=== PATIENT | female | born 1940 | race Caucasian/White ===

== ENCOUNTER 2019-03-21 11:03 | Outpatient (CLI) | payer MEDICARE, OTHER, SELFPAY ==
--- NOTE | 2019-03-21 | XR_ITS ---
WS: [id number] CHEST 2 VIEWS HISTORY: WEIGHT LOSS COMPARISON: 10/02/2017 Lungs: Hyperinflated lungs with changes of emphysema. No pneumonia. No mass or nodule is identified. Cardiac size: Normal. Mediastinum/Aorta: Mild atherosclerosis aorta. Bones: Normal. XR/XR chest 2V* [id number] IMPRESSION: Chronic emphysema. No acute cardiopulmonary disease.
== END 2019-03-21 11:04 | disposition home or self-care (01) ==
LOC: RADOUTREAD 03-22 07:13
PROVIDERS: Family Provider Family Medicine; Visit Provider Physician Assistant
DX: J43.9 Emphysema, unspecified (principal); R63.4 Abnormal weight loss
CPT/HCPCS: 71046

== ENCOUNTER 2019-05-27 21:52 | Emergency (ER) | payer MEDICARE, OTHER, SELFPAY ==
[2019-05-27] VITALS (20 sets, daily range): BP systolic 103–124; BP diastolic 66–75; PULSE 79–98; RESP 18; TEMP 36.8; O2SAT 90–95; BMI 19.5
--- NOTE | 2019-05-27 22:08 | ED_ITS ---
Entered by Patsy Jenkins, acting as scribe for Isauro Hernandez DO May 27, 2019 21:52 HPI - SOB/Dyspnea General: Chief Complaint: Shortness of Breath/Dyspnea Stated Complaint: SOB Time Seen by Provider: 05/27/19 22:07 Source: patient Mode of arrival: ambulatory History of Present Illness: HPI Narrative: 78 y/o female presents to the ED with complaint of SOB that started today. She has had a mild productive cough since last night, but denies any fever. She uses an Advair inhaler daily and says she is needing a refill. She became concerned when she realized she was out of the medication and continued to feel tightness in her chest. She does not have a rescue inhaler. MD elicited complaint: shortness of breath and cough Onset (ago): day(s) Timing: intermittent Severity: mild Exacerbating factors: coughing Relieving factors: medication Associated symptoms: Reports cough; Deny abdominal pain, chest pain, dizziness, fever(s), nausea, palpitations or vomiting Review of Systems Const: Reports: chills; Denies: fever Eyes: Denies: change in vision or blurry vision ENMT: Reports: post nasal drip; Denies: painful swallowing or facial/sinus pain Card: Reports: other (chest tightness); Denies: chest pain, palpitations, irregular heart rhythm, edema or swelling of feet/ankles Resp: Reports: shortness of breath, productive cough and wheezing; Denies: non-productive cough GI: Denies: abdominal pain, nausea or vomiting : Denies: painful urination, urinary frequency, urinary urgency or blood in urine Musc: Denies: neck pain, back pain, redness or joint warmth Skin/Breast: Denies: rash, itching or redness Neuro: Denies: headache, dizziness, vertigo or confusion Psych: Denies: anxiety PFSH ED PFSH: Social History Smoking and tobacco status: never smoked Physical Exam Const: COMMON NORMALS: alert GENERAL APPEARANCE: well kempt and well developed ORIENTATION/CONSCIOUSNESS: Yes awake, Yes oriented to person, Yes oriented to place and Yes oriented to time HENMT: COMMON NORMALS: normocephalic, external ears normal, external nose normal and moist oral mucous membranes HEAD & SCALP: normocephalic; no scalp tenderness FACE & SINUS: normal facial exam NOSE: external nose normal and no nasal discharge EXTERNAL EAR: Yes external ears normal MOUTH: tongue normal THROAT: posterior oropharynx normal; no peritonsillar mass Eye: COMMON NORMALS: PERRL, EOMs intact bilaterally and conjunctivae normal EYELID: eyelids normal CONJUNCTIVA: Yes conjunctivae normal PUPIL: Yes PERRL Neck/C-Spine: COMMON NORMALS: full ROM GENERAL: No tracheal deviation Chest: COMMONS NORMALS: inspection of chest normal CHEST: Yes symmetrical chest wall rise and No tenderness Resp: COMMON NORMALS: clear to auscultation bilaterally EFFORT & INSPECTION: No tachypneic, No respiratory distress, No retractions, No uses accessory muscles and No tracheal deviation AUSCULTATION: clear to auscultation bilaterally, no rhonchi, wheezes (slight) and lung sounds not diminished Cardio: COMMON NORMALS: regular rhythm RHYTHM: regular rhythm HEART SOUNDS: no murmurs PERIPHERAL PULSES: radial pulses present GI: INSPECTION: No abdominal distension AUSCULTATION: No hyperactive bowel sounds and No hypoactive bowel sounds PALPATION: No tender, No guarding and N o rigid PERCUSSION: no dullness to percussion and no tympanic to percussion Neuro: SENSORIUM/ORIENTATION: Yes alert, Yes oriented to person, Yes oriented to place and Yes oriented to time Psych: COMMON NORMALS: mental status grossly normal and speech normal APPEARANCE: Yes well kempt ATTITUDE: Yes calm SPEECH: Yes normal speech Skin: COMMON NORMALS: no rashes or lesions noted GENERAL SKIN EXAM: no rashes or lesions noted Course Vital Signs: Vital signs: Vital Signs Temperature 98.2 F 05/27/19 22:06 Pulse Rate 90 05/27/19 22:50 Respiratory Rate 18 05/27/19 22:45 Blood Pressure 102/64 05/28/19 00:15 Pulse Oximetry 93 05/28/19 00:15 MDM - SOB/Dyspnea MDM Narrative: Medical decision making narrative: 78-year-old female, out of her Advair at home. She presents with shortness of breath. She is improved after DuoNeb treatment and Solu-Medrol here. She is walked in the kelly, and maintained a sat above 91% on room air. She has no fever, no leukocytosis, no infiltrate on x-ray. She feels better and would like to go home. She will go home on steroids, and albuterol inhaler, and refill of her Advair. Lab Data: Labs: Lab Results 05/27/19 05/27/19 05/27/19 Range/Units 22:30 22:30 22:45 WBC 4.5 (4.0-10.0) 10^3/ uL RBC 3.87 L (4.1-5.3) 10^6/u L Hgb 12.9 (11.5-15.3) g/dL Hct 40.2 (37.0-47.0) % MCV 103.9 H (81-99) fL MCH 33.3 (28.0-34.0) pg MCHC 32.1 (30.0-36.0) g/dL RDW 12.1 (12.1-15.1) % Plt Count 194 (130-400) 10^3/c mm MPV 10.3 (7.4-10.4) fL Neut % (Auto) 54.3 % Lymph % (Auto) 23.1 % Ray % (Auto) 9.3 % Eos % (Auto) 12.4 % Baso % (Auto) 0.9 % Neut # (Auto) 2.4 (1.8-7.7) 10^3/u L Lymph # (Auto) 1.0 (0.8-4.8) 10^3/u L Ray # (Auto) 0.4 (0.2-0.9) 10^3/u L Eos # (Auto) 0.6 (0.0-0.8) 10^3/u L Baso # (Auto) 0.0 (0.0-0.1) 10^3/u L Nucleated RBC % (a uto) 0 % Nucleated RBCs # 0.0 /100WBC Sodium 139 (136-145) mmol/L Potassium 3.5 (3.5-5.1) mmol/L Chloride 103 (98-107) mmol/L Carbon Dioxide 24 (22-29) mmol/L Anion Gap 15.5 (5-19) BUN 12 (8-23) mg/dL Creatinine 0.7 (0.5-0.9) mg/dL Glucose 115 (65-115) mg/dL Calculated Osmolal ity 285 (285-295) mOsm/k g Calcium 9.6 (8.5-10.5) mg/dL Total Bilirubin 0.5 (0.15-1.2) mg/dL AST 15 (0-32) U/L ALT 12 (0-33) U/L Alkaline Phosphata se 80 (35-105) IU/L NT-Pro-B Natriuret Pep 44 (0-450) pg/mL Total Protein 5.8 L (6.6-8.7) g/dL Albumin 3.6 (3.5-5.2) g/dL Globulin 2.2 (1.3-4.6) g/dL Influenza Type A A g Negative (Negative) POC Influenza B Ag Negative (Negative) Discharge Plan Discharge Patient Disposition: Home, Self-Care Clinical Impression: Acute exacerbation of chronic obstructive airways disease Condition: Stable Prescriptions: New doxycycline hyclate 100 mg capsule 100 mg PO BID 10 Days Qty: 20 RF: 0 prednisone 20 mg tablet 40 mg PO DAILY Qty: 10 RF: 0 Advair Diskus 250-50 mcg/dose blister with device 1 inh INHALATION BID Qty: 60 RF: 0 Discharge Orders: Discharge Order (Routine); Ordered 05/27/19 Ordered By: Isauro Hernandez Referrals: Kathleen Trejo MD [Family Provider] - 4-7 days Discharge Diet: Usual diet Discharge Activity: Increase activity as tolerated Patient Instructions: Chronic Bronchitis (ED) Activity Restrictions/Additional Instructions: Return for any worsening shortness of breath despite treatment, fever greater than 100, worsening sputum production, chest discomfort, other concerning symptoms. Discharge Date/Time: 05/28/19 00:29 Coding Level of Care Code ED Rn Clinical Documentation for Chg Fwd Exam Comprehensive The documentation recorded by the Gregory posey Ashley, accurately reflects the service I personally performed and the decisions made by David smith Jeremy John, DO May 27, 2019 21:52
--- NOTE | 2019-05-27 22:21 | XRR_ITS ---
PROCEDURE INFORMATION: Exam: XR Chest, 1 View Exam date and time: 05/27/2019 10:52 PM Age: 78 years old Clinical indication: Shortness of breath; Additional info: SOB TECHNIQUE: Imaging protocol: XR of the chest Views: 1 view. COMPARISON: CR XR chest 2V* [id number] 03/21/2019 11:03 AM FINDINGS: Lungs: Stable mild hyperinflation of the lungs. No focal consolidation. No pulmonary edema. Pleural space: No pleural effusion. No pneumothorax. Heart/Mediastinum: Stable mild enlargement of the cardiac silhouette. Mediastinal contours are unremarkable. Bilateral calcified hilar lymph nodes are stable. Vasculature: Stable vascular calcifications in the aorta. Stable tortuosity of the aorta. Bones/joints: Bones are diffusely osteopenic. Degenerative changes in the spine and shoulders. Mild levoscoliosis in the visualized upper lumbar spine. Osseous findings are stable. XR/XR chest 1V portable [id number] IMPRESSION: 1. No acute cardiopulmonary process. 2. Incidental/nonacute findings are listed in the report.
[2019-05-27 22:43] LABS: Basophils % 0.9 %; Eosinophils # 0.6 10^3/uL (0.0-0.8); Eosinophils % 12.4 %; Hematocrit 40.2 % (37.0-47.0); Hemoglobin 12.9 g/dL (11.5-15.3); Lymphocytes % 23.1 %; Mean Corpuscular HGB Conc 32.1 g/dL (30.0-36.0); Mean Corpuscular Hemoglobin 33.3 pg (28.0-34.0); Mean Corpuscular Volume 103.9 fL (81-99); Mean Platelet Volume 10.3 fL (7.4-10.4); Monocytes # 0.4 10^3/uL (0.2-0.9); Monocytes % 9.3 %; Neutrophils # 2.4 10^3/uL (1.8-7.7); Neutrophils % 54.3 %; Nucleated Red Blood Cells % 0 %; Platelet Count 194 10^3/cmm (130-400); Red Blood Count 3.87 10^6/uL (4.1-5.3); Red Cell Distribution Width 12.1 % (12.1-15.1); White Blood Count 4.5 10^3/uL (4.0-10.0)
[2019-05-27] MEDS: ipratropium-albuterol 3 mL Neb INHALATION (22:44)
--- NOTE | 2019-05-27 22:47 | ECG_ITS ---
Measurements Intervals [place] Rate: 80 P: 31 ND: 157 QRS: -5 QRSD: 84 T: 59 QT: 376 QTc: 436 SINUS RHYTHM Compared to ECG 10/02/2017 23:59:40 T-wave abnormality no longer present Electronically Signed On 05-28-2019 9:23:04 CDT by Juan Arguello M.D. [email or web address]
[2019-05-27 23:12] LABS: Alanine Aminotransferase 12 U/L (0-33); Albumin Level 3.6 g/dL (3.5-5.2); Alkaline Phosphatase 80 IU/L (35-105); Anion Gap 15.5 (5-19); Aspartate Amino Transferase 15 U/L (0-32); Blood Urea Nitrogen 12 mg/dL (8-23); Calcium 9.6 mg/dL (8.5-10.5); Carbon Dioxide 24 mmol/L (22-29); Chloride 103 mmol/L (98-107); Globulin 2.2 g/dL (1.3-4.6); Glucose 115 mg/dL (65-115); NT Pro B Type Natriuretic Pept 44 pg/mL (0-450); Osmolality Calculated 285 mOsm/kg (285-295); Potassium 3.5 mmol/L (3.5-5.1); Sodium 139 mmol/L (136-145); Total Bilirubin 0.5 mg/dL (0.15-1.2); Total Protein 5.8 g/dL (6.6-8.7)
[2019-05-28] VITALS: BP 103/66; O2SAT 90
[2019-05-28 00:05] VITALS: BP 102/64
[2019-05-28 00:10] VITALS: BP 102/64; O2SAT 93
[2019-05-28 00:11] LABS: Influenza A by IFA Negative (Negative); Influenza B by IFA Negative (Negative)
[2019-05-28 00:15] VITALS: BP 102/64; O2SAT 93
== END 2019-05-28 00:29 | disposition home or self-care (01) ==
PROVIDERS: Emergency Provider Emergency Medicine; Family Provider Family Medicine
DX: J44.1 Chronic obstructive pulmonary disease with (acute) exacerbation (principal)
CPT/HCPCS: 12345; 71045; 80053; 83880; 85025; 87804; 93005; 94640; 96374; 99283; 99284; J2930

== ENCOUNTER 2019-06-12 04:05 | Observation (INO) | payer MEDICARE, OTHER, SELFPAY ==
[2019-06-12] VITALS (17 sets, daily range): BP systolic 114–165; BP diastolic 73–111; PULSE 73–96; RESP 16–23; TEMP 36.4–37.9; O2SAT 88–95
--- NOTE | 2019-06-12 04:13 | XR_ITS ---
WS: [id number] CHEST XRAY TECHNIQUE: Portable chest. CLINICAL INFORMATION: sob COMPARISON: May 27, 2019 FINDINGS: Heart: Normal cardiac silhouette. Tortuous thoracic aorta. Lungs: Chronic emphysematous changes. No acute pulmonary infiltrates. No focal pneumonia. Bones: Osteopenia. XR/XR chest 1V [id number] IMPRESSION: Chronic emphysematous changes. No acute chest findings.
--- NOTE | 2019-06-12 04:20 | W.ED.SOB ---
HPI - SOB/Dyspnea General: Chief Complaint: Shortness of Breath/Dyspnea Stated Complaint: SOB Time Seen by Provider: 06/12/19 04:13 History of Present Illness: MD elicited complaint: shortness of breath and cough Pertinent past history: COPD Onset (ago): day(s) (2) Context: recent illness Timing: constant Severity: moderate Exacerbating factors: exertion Relieving factors: oxygen Known history of: COPD Associated symptoms: Reports chest congestion; Deny abdominal pain, chest pain, dizziness, fever(s), nausea, palpitations or vomiting Review of Systems Const: Denies: fever or chills Eyes: Denies: change in vision or blurry vision ENMT: Denies: painful swallowing, swelling of lips/tongue, post nasal drip or facial/sinus pain Card: Denies: chest pain, palpitations, irregular heart rhythm or edema Resp: Reports: shortness of breath, productive cough, wheezing and chest congestion GI: Denies: abdominal pain, nausea, vomiting or blood in stool : Denies: painful urination or blood in urine Musc: Denies: neck pain or back pain Skin/Breast: Denies: rash, itching or redness Neuro: Denies: headache, dizziness or vertigo Psych: Denies: anxiety PFSH ED PFSH: Medical History (Updated 06/12/19 @ 06:03 by Aramis Shea MD) Asthma Hilar lymphadenopathy Lower back pain Osteoarthritis Osteoporosis Surgical History (Updated 06/12/19 @ 06:01 by Aramis Shea MD) No pertinent past surgical history Family History Other Hypertension Social History (Updated 06/12/19 @ 06:01 by Aramis Shea MD) Smoking and tobacco status: never smoked Alcohol intake: never Substance/Drug Use: never Lives independently: Yes Household members: other Details: She lives alone Housing: House Physical Exam Const: GENERAL APPEARANCE: well developed ORIENTATION/CONSCIOUSNESS: Yes oriented to person, Yes oriented to place and Yes oriented to time HENMT: COMMON NORMALS: normocephalic, external ears normal and external nose normal HEAD & SCALP: normocephalic; no scalp tenderness FACE & SINUS: normal facial exam NOSE: external nose normal and no nasal discharge EXTERNAL EAR: Yes external ears normal MOUTH: tongue normal Eye: COMMON NORMALS: PERRL, EOMs intact bilaterally and conjunctivae normal EYELID: eyelids normal CONJUNCTIVA: Yes conjunctivae normal PUPIL: Yes PERRL Neck/C-Spine: COMMON NORMALS: full ROM GENERAL: No tracheal deviation Chest: COMMONS NORMALS: inspection of chest normal CHEST: No tenderness Resp: EFFORT & INSPECTION: Yes tachypneic, Yes respiratory distress, No retractions, Yes uses accessory muscles and No tracheal deviation AUSCULTATION: no rhonchi, wheezes and diminished lung sounds Cardio: COMMON NORMALS: regular rate and regular rhythm RATE: regular rate RHYTHM: regular rhythm HEART SOUNDS: no murmurs PERIPHERAL PULSES: radial pulses present GI: INSPECTION: No abdominal distension AUSCULTATION: No hyperactive bowel sounds and No hypoactive bowel sounds PALPATION: No guarding and No rigid PERCUSSION: no dullness to percussion and no tympanic to percussion Neuro: SENSORIUM/ORIENTATION: Yes oriented to person, Yes oriented to place and Yes oriented to time Psych: COMMON NORMALS: mental status grossly normal Skin: COMMON NORMALS: no rashes or lesions noted GENERAL SKIN EXAM: no rashes or lesions noted Course Vital Signs: Vital signs: Vital Signs Temperature 97.8 F 06/12/19 04:09 Pulse Rate 87 06/12/19 05:30 Respiratory Rate 16 06/12/19 05:30 Blood Pressure 126/84 06/12/19 05:30 Pulse Oximetry 92 06/12/19 05:30 MDM - SOB/Dyspnea MDM Narrative: Medical decision making narrative: 79-year-old lady with a history of COPD. I saw HER-2 weeks ago with the same symptoms. She states that she never got her Advair. I do not know if she filled her prednisone and doxycycline. She has no oxygen at home. She presents with a saturation of 80% on room air. She is on 4 L, satting 95% now, and is more comfortable. She has had Solu-Medrol and DuoNeb treatments. Her chest x-ray is free of infiltrate. Her labs are essentially normal. She will be observed for COPD exacerbation with hypoxic respiratory failure. Lab Data: Labs: Lab Results 06/12/19 06/12/19 Range/Units 04:30 04:30 WBC 4.6 (4.0-10.0) 10^3/ uL RBC 4.19 (4.1-5.3) 10^6/u L Hgb 14.2 (11.5-15.3) g/dL Hct 43.4 (37.0-47.0) % MCV 103.6 H (81-99) fL MCH 33.9 (28.0-34.0) pg MCHC 32.7 (30.0-36.0) g/dL RDW 12.2 (12.1-15.1) % Plt Count 183 (130-400) 10^3/c mm MPV 10.2 (7.4-10.4) fL Neut % (Auto) 51.3 % Lymph % (Auto) 26.7 % [place] % (Auto) 8.2 % Eos % (Auto) 13.4 % Baso % (Auto) 0.4 % Neut # (Auto) 2.4 (1.8-7.7) 10^3/u L Lymph # (Auto) 1.2 (0.8-4.8) 10^3/u L [place] # (Auto) 0.4 (0.2-0.9) 10^3/u L Eos # (Auto) 0.6 (0.0-0.8) 10^3/u L Baso # (Auto) 0.0 (0.0-0.1) 10^3/u L Nucleated RBC % (a uto) 0 % Nucleated RBCs # 0.0 /100WBC Sodium 144 (136-145) mmol/L Potassium 3.5 (3.5-5.1) mmol/L Chloride 105 (98-107) mmol/L Carbon Dioxide 28 (22-29) mmol/L Anion Gap 14.5 (5-19) BUN 10 (8-23) mg/dL Creatinine 0.6 (0.5-0.9) mg/dL Glucose 107 (65-115) mg/dL Calculated Osmolal ity 294 (285-295) mOsm/k g Calcium 9.6 (8.5-10.5) mg/dL Total Bilirubin 0.8 (0.15-1.2) mg/dL AST 16 (0-32) U/L ALT 12 (0-33) U/L Alkaline Phosphata se 74 (35-105) IU/L NT-Pro-B Natriuret Pep 55 (0-450) pg/mL Total Protein 6.4 L (6.6-8.7) g/dL Albumin 4.2 (3.5-5.2) g/dL Globulin 2.2 (1.3-4.6) g/dL Discharge Plan Discharge Prescriptions: No Action prednisone 20 mg tablet 40 mg PO DAILY Qty: 10 RF: 0 Advair Diskus 250-50 mcg/dose blister with device 1 inh INHALATION BID Qty: 60 RF: 0 Coding Level of Care Code ED Pipe Recovery Specialist for Chg Fwd Exam Comprehensive
[2019-06-12] MEDS: ipratropium-albuterol 3 mL Neb INHALATION ×2 (04:29→09:08)
[2019-06-12 04:36] LABS: Basophils % 0.4 %; Eosinophils # 0.6 10^3/uL (0.0-0.8); Eosinophils % 13.4 %; Hematocrit 43.4 % (37.0-47.0); Hemoglobin 14.2 g/dL (11.5-15.3); Lymphocytes # 1.2 10^3/uL (0.8-4.8); Lymphocytes % 26.7 %; Mean Corpuscular HGB Conc 32.7 g/dL (30.0-36.0); Mean Corpuscular Hemoglobin 33.9 pg (28.0-34.0); Mean Corpuscular Volume 103.6 fL (81-99); Mean Platelet Volume 10.2 fL (7.4-10.4); Monocytes # 0.4 10^3/uL (0.2-0.9); Monocytes % 8.2 %; Neutrophils # 2.4 10^3/uL (1.8-7.7); Neutrophils % 51.3 %; Nucleated Red Blood Cells % 0 %; Platelet Count 183 10^3/cmm (130-400); Red Blood Count 4.19 10^6/uL (4.1-5.3); Red Cell Distribution Width 12.2 % (12.1-15.1); White Blood Count 4.6 10^3/uL (4.0-10.0)
[2019-06-12 05:01] LABS: Alanine Aminotransferase 12 U/L (0-33); Albumin Level 4.2 g/dL (3.5-5.2); Alkaline Phosphatase 74 IU/L (35-105); Anion Gap 14.5 (5-19); Aspartate Amino Transferase 16 U/L (0-32); Blood Urea Nitrogen 10 mg/dL (8-23); Calcium 9.6 mg/dL (8.5-10.5); Carbon Dioxide 28 mmol/L (22-29); Chloride 105 mmol/L (98-107); Globulin 2.2 g/dL (1.3-4.6); Glucose 107 mg/dL (65-115); NT Pro B Type Natriuretic Pept 55 pg/mL (0-450); Osmolality Calculated 294 mOsm/kg (285-295); Potassium 3.5 mmol/L (3.5-5.1); Sodium 144 mmol/L (136-145); Total Bilirubin 0.8 mg/dL (0.15-1.2); Total Protein 6.4 g/dL (6.6-8.7)
--- NOTE | 2019-06-12 05:23 | P.HP_ITS ---
Providers/Chief Complaint Chief Complaint: SOB History of Present Illness Dilcia Zimmerman is a 79 year old female who carries diagnoses of osteoarthritis, asthma, no other past medical history came in with chief complaint of shortness of breath. Patient is stating that she uses Advair for her asthma and she ran out of Advair yesterday, today she started having shortness of breath without an y wheezing, this shortness of breath was mostly at mild exertion, she has not noticed any fever, nausea or vomiting. Patient is denying myalgia, flulike symptoms, recent travel, sick contacts, diarrhea, dysuria. She does not use oxygen at home, her only medication is Advair. Her last PCP appointment was 3 to 4 months ago. She occasionally takes aspirin for her headaches. She consider herself fairly independent for daily activities, she lives alone, takes care of her dog. Diagnostics in ER revealed hypoxia on room air she is requiring 4 L of nasal cannula to keep saturation 90 to 92% I have requested d-dimer and blood gas At the time of the interview she was resting comfortably in her bed without any active respiratory distress, no wheezing noticed Because of high requirement of oxygen decision was made to admit the patient for further evaluation Review of Systems Const: Denies: fever, chills, body aches or fatigue Eyes: Denies: change in vision ENMT: Denies: throat pain or uvular edema Card: Denies: chest pain, palpitations, irregular heart rhythm or edema Resp: Reports: shortness of breath; Denies: productive cough, non-productive cough, wheezing or change in phlegm color GI: Denies: abdominal pain, nausea or vomiting blood : Denies: flank pain, difficulty urinating or urinary frequency Musc: Reports: joint pain, joint swelling, joint stiffness, limited range of motion and decrease in muscle mass; Denies: extremity pain, extremity swelling or muscle weakness Skin/Breast: Denies: rash or itching Neuro: Denies: headache or weakness in extremities Psych: Denies: anxiety Endo: Denies: excessive urination Zain/Lymph: Denies: easy bruising All/Imm: Denies: hives Medications/Allergies Allergies Allergy/AdvReac Type Severity Reaction Status Date / Time No Known Allergies Allergy Verified 05/27/19 22:08 PFSH Acute PFSH: Medical History (Updated 06/12/19 @ 06:03 by Aramis Shea MD) Asthma Hilar lymphadenopathy Lower back pain Osteoarthritis Osteoporosis Surgical History (Updated 06/12/19 @ 06:01 by Aramis Shea MD) No pertinent past surgical history Family History Other Hypertension Social History (Updated 06/12/19 @ 06:01 by Aramis Shea MD) Smoking and tobacco status: never smoked Alcohol intake: never Substance/Drug Use: never Lives independently: Yes Household members: other Details: She lives alone Housing: House Vitals/I&O/Wt Last Vital Signs Temp 97.8 F 06/12/19 04:09 Pulse 80 06/12/19 04:33 Resp 20 H 06/12/19 04:33 BP 165/111 06/12/19 04:09 Pulse Ox 94 06/12/19 04:33 Weight last 48 hrs Weight 51.256 kg Physical Exam Narrative: EXAM NARRATIVE: Very pleasant elderly female Saturating on 4 L nasal cannula 92% No active respiratory distress Appropriate appearance Decreased muscle mass S1, S2 no signs of heart failure No active respiratory distress, no audible wheezing, bilateral breath sounds diminished with decreased airflow however I have not noticed any wheezing Abdomen soft nontender nondistended bowel sounds present Neurologically nonfocal exam Mild cognitive impairment Skin does not show any sign ischemia gangrene ulcer EOMI, PERRLA Appropriate mood and affect Bilateral lower extremity without any asymmetrical swelling redness Data : 06/12/19 04:30 06/12/19 04:30 A&P Assessment and plan (1) Acute respiratory failure with hypoxia: Status: Acute Code(s): J96.01 - Acute respiratory failure with hypoxia Additional A&P Information Acute hypoxic respiratory failure Chest x-ray is revealing hyperinflated emphysematous lungs with hilar lymphadenopathy No signs of pneumonia, she has been afebrile, no leukocytosis, We will check d-dimer as she is considered low risk for PE Will get blood gas Home O2 evaluation Physical therapy No active wheezing, however she has decreased airflow bilaterally, Albuterol and DuoNeb for as needed purposes I would not use steroids No liver enzymes abnormality, kindly evaluate if she would benefit from alpha-1 antitrypsin level as she is a non-smoker and has hyperinflated emphysematous lungs Osteoporosis We will start calcium and vitamin D supplement She has been taking Advair for a long time without use of Protonix or calcium or vitamin D Full code DVT prophylaxis: Lovenox No need of fluids Attestations Medical Necessity Statement*: Anticipating discharge in less than 48 hours after evaluation of acute hypoxic respiratory failure, currently she is stable on 4 L nasal cannula Time Spent in Patient Care: 30 Coding Level of Care Code Acute Public Health Technician for Gabrielle Turner Diagnoses Acute respiratory failure with hypoxia J96.01
[2019-06-12 07:33] LABS: ABG PCO2 41.2 mmHg (35-45); ABG PH Result 7.39 (7.35-7.45); Arterial Blood Gas Hematocrit 43.7 % (37-47); Base Excess ABG 0.2 mmol/L (-2.0-2.0); Blood Gas Allen Test Pos; Blood Gas Sample Site Radial, left; Blood Gas Sample Type Arterial; HCO3 ABG 25.2 mmol/L (22-26); Oxygen Device NC; PO2 ABG 73.7 mmHg (80.0-100.0)
[2019-06-12] MEDS: enoxaparin 40 mg/0.4 mL Syringe SUBCUT (08:33)
[2019-06-12] MEDS: calcium carb-vit d 500mg-200unit 1 Tablet 1 EACH PO (08:33)
--- NOTE | 2019-06-12 13:15 | CT_ITS ---
WS: [id number] CT CHEST ANGIOGRAPHY WITH REFORMATS HISTORY: Acute hypoxic respite failure TECHNIQUE: Contiguous axial images are obtained through the chest during arterial injection of intrav enous contrast. Images are reconstructed to evaluate the pulmonary arteries. MIP imaging also reviewe d. All CT scans at [facility] use at least one of these dose optimization techniques: aut omated exposure control; mA and/or kV adjustment per patient size (includes targeted exams where dose is matched to clinical indication); or iterative reconstruction. CONTRAST: Omnipaque 350; 95 mL IV. DLP: 297.85 mGy.cm COMPARISON: None available. Very good opacification of the pulmonary arteries. No central or proximal filling defects. Beyond the segmental and subsegmental branches there is adequate opacification. Pulmonary artery size is equal to the aorta. Mild atherosclerosis of aorta. No aneurysm or dissection. Moderate enlargement of cardi ac chambers. No pericardial or pleural effusion. Hyperexpanded lungs with changes of emphysema. No pneumonia or mass. Mild atelectasis at the RIGHT tayo ng base. No adenopathy. Mild bronchiectasis medial LEFT upper lobe. There is diffuse distention of the esophagus with air. There is a large amount of air in the stomach. Small hiatal hernia. Through the upper abdomen there are areas of decreased attenuation scattered throughout the liver whi ch are likely cysts. Cannot be characterized further on this examination. The largest measures 1.5 cm . No adrenal mass. Long curvature scoliosis to the RIGHT. CT/CT angio chest PE protcl [id number] IMPRESSION: 1. No pulmonary embolism. 2. Chronic emphysema. 3. Mild bronchial wall thickening and bronchiectasis medial LEFT upper lobe. 4. Diffuse distention of the esophagus with an air. There is also a large amou nt of air in the stomach. 5. Cardiomegaly. 6. Multiple low-attenuation masses in the liver. These cannot be characterize completely due to their small size. Large masses are cysts. For further evaluat ion follow-up abdomen CT in 3 months with contrast. Liver ultrasound may provid e additional information at this time.
[2019-06-12] MEDS: iohexol 350 mg/mL 100 mL Btl IV (13:51)
[2019-06-13] VITALS (7 sets, daily range): BP systolic 117–143; BP diastolic 78–88; PULSE 73–88; RESP 16–18; TEMP 36.1–36.9; O2SAT 89–95
--- NOTE | 2019-06-13 07:14 | XR_ITS ---
WS: [id number] ABDOMEN 1 VIEW(S) HISTORY: Air in stomach and esophagus. COMPARISON: 06/12/2019 Moderate increased amount of air throughout the GI tract. There is mild constipation. No free air is identified. There is a loop of distal small bowel that is top normal size. Large lobulated calcification measuring 3.1 cm in the mid pelvis. Probably related to a fibroid. LEFT convex curvature lumbar spine. Diffuse osteopenia. XR/XR KUB [id number] IMPRESSION: 1. Increased amount of air throughout the GI track with no obstruction. 2. Single loop of small bowel in the pelvis is top normal size. Mild ileus naina roberto minimal small bowel obstruction or impending obstruction.
[2019-06-13] MEDS: ipratropium-albuterol 3 mL Neb INHALATION (08:37)
--- NOTE | 2019-06-13 10:39 | PM.DCS ---
Discharge Providers Date of Admission: 06/12/19 05:29 Date of Discharge: June 13, 2019 Attending Provider at Admission: Aramis Shea MD Attending Provider at Discharge: Jeffrey Gordon MD Primary Care Provider: DOCTOR NOT ON FILE Diagnoses at Discharge Discharge Diagnosis (1) Acute respiratory failure with hypoxia: Status: Acute (2) Hepatic cyst: Status: Acute (3) Acute bronchitis: Status: Acute Reason for Visit Reason for Visit: Reason For Visit: COPD ACUTE EXACERBATION Hospital Course Discharge Summary: Patient presented with shortness of breath and noted to be hypoxic. She reports mostly dry cough and some nasal congestion but this morning reports feeling much better and wants to go home. Because of new onset of hypoxia she had CT scan of the chest, PE protocol performed yesterday showing no evidence of PE. She had bronchial wall thickening and bronchiectasis and accidentally found to have multiple liver masses which appeared to be cystic. Recommendation was to have CT scan of abdomen in 3 months with contrast. Liver ultrasound could also be considered. KUB was obtained this morning showing increased amount of air throughout the GI tract with no evidence of obstruction. Patient denies any abdominal pain or problems with bowel movement. She had normal formed stool yesterday. She reports passing gas and denies nausea. She ate 100% of her breakfast this morning. She ambulates without difficulty. She did qualify for 2 L of oxygen and this will be prescribed. I am not sure where this air in her GI tract coming from. I have reviewed all ER documentation and did not find any records of using BiPAP in ER. I am assuming that she could possibly receive BiPAP treatment in the ambulance as I do not have any other explanation of air in her GI tract. I will request home health nurse to see patient post discharge to make sure she is doing okay. Patient reports that her daughter lives next door and frequently checks on her. Patient's acute bronchitis felt to be viral in etiology. We will give 3 days of doxycycline for secondary bacterial pneumonia prevention. Given clinical improvement we will go ahead and dismiss patient home. Physical Exam Const: COMMON NORMALS: no apparent distress and oriented x3 Resp: COMMON NORMALS: normal respiratory effort and clear to auscultation bilaterally AUSCULTATION: clear to auscultation bilaterally OTHER: Overall decreased air movement. Cardio: COMMON NORMALS: regular rate, regular rhythm and S2 normal heart sound RATE: regular rate RHYTHM: regular rhythm HEART SOUNDS: S2 normal OTHER: No lower extremity edema GI: COMMON NORMALS: normal to inspection, nondistended, normoactive bowel sounds, soft to palpation and non-tender PALPATION: Yes soft Neuro: COMMON NORMALS: oriented x3 and no focal motor deficits Discharge Data Data Completed and Pending: Completed Studies During Hospitalization Category Date Time Status CT angio chest PE protcl 61025 Rout ine Cat Scan 06/12/19 13:15 Completed XR KUB 56083 Rout ine Exams 06/13/19 07:14 Completed XR chest 1V 71492 Stat Exams 06/12/19 04:13 Completed Vitals: Last Vital Signs Temp 98.5 F 06/13/19 07:54 Pulse 88 06/13/19 08:40 Resp 18 06/13/19 08:38 BP 129/86 06/13/19 07:54 Pulse Ox 94 06/13/19 08:38 Discharge Plan Discharge Patient Disposition: Home Health Service Condition: Stable Prescriptions: New calcium carbonate-vitamin D3 [Oyster Shell Calcium-Vit D3] 500 mg(1,250mg) -200 unit Tablet 1 ea PO DAILY Qty: 30 RF: 0 albuterol sulfate [Ventolin HFA] 90 mcg/actuation HFA aerosol inhaler 1 inh INHALATION Q6H PRN (Reason: shortness of breath or wheezing) Qty: 6.7 RF: 0 doxycycline hyclate 100 mg tablet 100 mg PO BID 3 Days Qty: 6 RF: 0 Continued Advair Diskus 250-50 mcg/dose blister with device 1 inh INHALATION BID Qty: 60 RF: 0 Discontinued prednisone 20 mg tablet 40 mg PO DAILY Qty: 10 RF: 0 Discharge Orders: Discharge Order (Routine); Ordered 06/13/19 Ordered By: Jeffrey Gordon Other Ambulatory Orders: DME: Oxygen (Order) Location: None Selected Ordered By: Jeffrey Gordon Referrals: Kathleen Trejo MD [Family Provider] - 4-7 days Discharge Diet: Regular Discharge Activity: Increase activity as tolerated Activity Restrictions/Additional Instructions: Please call your doctor or present to emergency department if your condition worsens or you develop diarrhea, lightheadedness, fatigue or see blood in your stool or black stool. Please follow-up with Dr. Kathleen Trejo in 4 to 7 days and discuss regarding new CT findings including liver cysts and bowel air as you may need to have a repeat imaging including CT scan of abdomen or ultrasound. Please use oxygen with ambulation or as needed. Please avoid sun exposure when using doxycycline. Discharge Attestations Time Spent in Discharge Care*: greater than 30 min Quality Metrics Clinical Quality Measures During this hospital stay, did patient experience: None Coding Level of Care Code Acute Battery Service Technician for Chg Fwd Exam Detailed Diagnoses Acute respiratory failure with hypoxia J96.01 Hepatic cyst K76.89 Acute bronchitis J20.9
[2019-06-13] MEDS: doxycycline 100 mg Tablet PO (11:20)
--- NOTE | 2019-06-13 13:53 | PC.NURSE ---
Discharge - patient given d/c instructions. Spoke with Daughter Jennifer who i also gave the d/c instructions to per patients permission. Oxygen has been delivered and we are awaiting a ride home. IV Removed and asymptomatic. Patient has all belongings with her. PATSY, [place]
== END 2019-06-13 14:06 | disposition home health service (06) ==
LOC: ER 04:22 → MEDSURG 06:11
PROVIDERS: Admitting Provider Internal Medicine; Emergency Provider Emergency Medicine; Family Provider Family Medicine; PCP Family Medicine; Visit Provider Internal Medicine
DX: J96.01 Acute respiratory failure with hypoxia (principal); J20.9 Acute bronchitis, unspecified; K76.89 Other specified diseases of liver; M19.90 Unspecified osteoarthritis, unspecified site; M81.0 Age-related osteoporosis without current pathological fracture; J44.9 Chronic obstructive pulmonary disease, unspecified
CPT/HCPCS: 12345; 36600; 71045; 71275; 74018; 80053; 82803; 83880; 85025; 85378; 94640; 96372; 96374; 97116; 97161; 99282; 99285; G0378; J1650; J2930; Q9967

== ENCOUNTER 2019-10-12 21:16 | Inpatient (IN) | payer MEDICARE, OTHER, SELFPAY ==
[2019-10-12 21:21] VITALS: BP 129/86; PULSE 97; RESP 20; TEMP 36.8; O2SAT 90; BMI 20.1
--- NOTE | 2019-10-12 21:30 | XRR_ITS ---
PROCEDURE INFORMATION: Exam: XR Chest, 1 View Exam date and time: 10/12/2019 9:58 PM Age: 79 years old Clinical indication: Dyspnea and shortness of breath and wheezing TECHNIQUE: Imaging protocol: XR of the chest Views: 1 view. COMPARISON: CR XR chest 1V [id number] 06/12/2019 4:10 AM FINDINGS: Lungs: Six hyperinflation. Left hilar calcified granuloma. Pleural space: Unremarkable. No pleural effusion. No pneumothorax. Heart/Mediastinum: Unremarkable. No cardiomegaly. Vasculature: Tortuous thoracic aorta. Diaphragm: Elevation left hemidiaphragm. Bones/joints: Lumbar curve right concavity. Gastrointestinal tract: Gaseous distension of the stomach. XR/XR chest 1V portable [id number] IMPRESSION: 1. Hyperinflation. 2. Tortuous thoracic aorta.
--- NOTE | 2019-10-12 21:31 | ECG_ITS ---
[facility] Test Date: 2019-10-12 Pat Name: Dilcia Zimmerman Department: Room: Gender: Female Quality Improvement Coordinator (Rn): : 1940 Requested By: Mary Beth Mcconnell Order Number: [id number] Esme MD: Juan Arguello M.D. Measurements Intervals Andreas Rate: 93 P: 79 AL: 135 QRS: 2 QRSD: 94 T: 65 QT: 349 QTc: 435 Interpretive Statements SINUS RHYTHM LOW QRS VOLTAGE IN EXTREMITY LEADS [QRS DEFLECTION < 0.5 mV IN LIMB LEADS] Compared to ECG 05/27/2019 23:11:00 Low QRS voltage now present Electronically Signed On 10-13-2019 16:03:14 CDT by Juan Arguello M.D. [id number]
[2019-10-12 21:40] VITALS: PULSE 88; RESP 18; O2SAT 95
[2019-10-12] MEDS: ipratropium-albuterol 3 mL Neb 9 ML INHALATION (21:40)
[2019-10-12 21:50] LABS: ABG PCO2 37.7 mmHg (35-45); ABG PH Result 7.43 (7.35-7.45); Arterial Blood Gas Hematocrit 45.6 % (37-47); Base Excess ABG 0.5 mmol/L (-2.0-2.0); Blood Gas Operator Identificat HARKR; Blood Gas Sample Site Brachial, right; Blood Gas Sample Type Arterial; HCO3 ABG 24.7 mmol/L (22-26); Oxygen Device NC; PO2 ABG 72.9 mmHg (80.0-100.0)
[2019-10-12 21:53] VITALS: PULSE 90
[2019-10-12 21:53] LABS: Basophils % 0.6 %; Eosinophils # 0.7 10^3/uL (0.0-0.8); Eosinophils % 13.7 %; Hematocrit 43.1 % (37.0-47.0); Hemoglobin 14.3 g/dL (11.5-15.3); Lymphocytes # 1.2 10^3/uL (0.8-4.8); Lymphocytes % 21.5 %; Mean Corpuscular HGB Conc 33.2 g/dL (30.0-36.0); Mean Corpuscular Hemoglobin 32.9 pg (28.0-34.0); Mean Corpuscular Volume 99.1 fL (81-99); Mean Platelet Volume 10.2 fL (7.4-10.4); Monocytes # 0.5 10^3/uL (0.2-0.9); Monocytes % 9.3 %; Neutrophils # 2.95 10^3/uL (1.8-7.7); Neutrophils % 54.7 %; Nucleated Red Blood Cells % 0 %; Platelet Count 224 10^3/cmm (130-400); Red Blood Count 4.35 10^6/uL (4.1-5.3); Red Cell Distribution Width 11.9 % (12.1-15.1); White Blood Count 5.4 10^3/uL (4.0-10.0)
[2019-10-12 22:04] LABS: Lactic Sepsis W/Reflex 3.6 mmol/L (0.5-2.2)
[2019-10-12 22:06] LABS: Troponin(5th) Baseline 8 ng/L (0-10)
[2019-10-12 22:07] LABS: Alanine Aminotransferase 13 U/L (0-33); Albumin Level 4.3 g/dL (3.5-5.2); Alkaline Phosphatase 93 IU/L (35-105); Aspartate Amino Transferase 17 U/L (0-32); Blood Urea Nitrogen 13 mg/dL (8-23); Calcium 9.7 mg/dL (8.5-10.5); Carbon Dioxide 24 mmol/L (22-29); Chloride 99 mmol/L (98-107); Creatinine Clr Calc Pharmacy 45.0249; Globulin 2.5 g/dL (1.3-4.6); Glucose 157 mg/dL (65-115); Magnesium 2.2 mg/dL (1.7-2.3); Osmolality Calculated 279 mOsm/kg (285-295); Sodium 135 mmol/L (136-145); Total Bilirubin 0.9 mg/dL (0.15-1.2); Total Protein 6.8 g/dL (6.6-8.7)
--- NOTE | 2019-10-12 22:18 | W.ED.SOB ---
HPI - SOB/Dyspnea General: Chief Complaint: Shortness of Breath/Dyspnea Stated Complaint: sob Time Seen by Provider: 10/12/19 21:26 Source: patient Mode of arrival: ambulatory Limitations: no limitations History of Present Illness: HPI Narrative: Dilcia is a nice 79-year-old female who comes in complaining of shortness of breath progressive over the past week. She states that she does not have a fever. She denies any loss of sense of taste or loss of sense of smell. Patient states that her cough is nonproductive. She states that she is out of multiple medications and this causes her to get short of breath. The patient denies any other complaints or concerns such as chest pain. She does not have any COVID-19 exposures that she knows of. She states any type of exertion that makes her symptoms worse and nothing really seems to make them better other than rest and that relief is marginal. Associated symptoms: Deny abdominal pain, chest congestion, chest pain, diaphoresis, dizziness, extremity pain, fever(s), hemoptysis, lightheadedness, nausea, orthopnea, palpitations, syncope or vomiting Review of Systems Const: Denies: fever(s), chills, body aches, fatigue, malaise or diaphoresis Eyes: Denies: change in vision, blurry vision, blind spots, photophobia, eye discharge or eye redness ENMT: Denies: throat pain, odynophagia, hoarseness, swelling of lips/tongue, oral sores, ear or mastoid pain, ear discharge, change in hearing or nasal discharge Card: Denies: chest pain, palpitations, irregular heart rhythm, edema, lightheadedness, syncope, pre-syncope, dyspnea on exertion or orthopnea Resp: Reports: dyspnea and non-productive cough; Denies: productive cough, wheezing, hemoptysis or chest congestion GI: Denies: abdominal pain, nausea, vomiting, hematemesis, coffee ground emesis, heartburn, diarrhea, constipation, GI cramping, hematochezia or melena : Denies: flank pain, dysuria, urinary frequency, urinary urgency or hematuria Musc: Denies: neck pain, back pain, extremity pain, extremity swelling, joint pain, joint swelling, joint redness, joint warmth or joint stiffness Skin/Breast: Denies: rash, pruritus, erythema, skin tenderness or jaundice Neuro: Denies: headache(s), numbness in extremities, weakness in extremities, sensory changes, lack of coordination, difficulty walking, dizziness, vertigo, confusion, Slurred speech present or seizure-like activity Zain/Lymph: Denies: easy bruising, easy bleeding, petechiae, purpura or enlarged lymph nodes All/Imm: Denies: urticaria, throat swelling, tongue swelling, facial swelling or acute wheezing PFSH ED PFSH: Medical History Asthma Hepatic cyst Hilar lymphadenopathy Lower back pain Osteoarthritis Osteoporosis Surgical History No pertinent past surgical history Family History Other Hypertension Social History Smoking and tobacco status: never smoked Alcohol intake: never Lives independently: Yes Household members: other Details: She lives alone Housing: House Physical Exam Const: COMMON NORMALS: no acute distress, patient oriented x3, no limitations, healthy appearing and well nourished GENERAL APPEARANCE: cooperative, well kempt and well developed HENMT: COMMON NORMALS: normocephalic, atraumatic, external ears normal, EAC's normal and Normal external nose present HEAD & SCALP: normal to inspection, normocephalic and atraumatic FACE & SINUS: normal facial exam and face symmetric NOSE: Normal external nose present and Normal nares present EXTERNAL EAR: Yes external ears normal EXTERNAL AUDITORY CANAL: EAC's normal MOUTH: Normal oral and palatal mucosa present, lip normal and tongue normal Eye: COMMON NORMALS: Equal, round and reactive pupils present and conjunctivae normal GENERAL EYE: appearance normal, both eyes and all related structures ALIGNMENT: Yes alignment normal PERIORBITAL: periorbital findings normal EYELID: eyelids normal CONJUNCTIVA: Yes conjunctivae normal SCLERA: sclerae normal PUPIL: Yes Equal, round and reactive pupils present Neck/C-Spine: COMMON NORMALS: full ROM, no lymphadenopathy, supple, no meningeal signs and no JVD GENERAL: Yes normal visual inspection and Yes trachea midline Chest: COMMONS NORMALS: normal inspection of the chest and normal palpation of entire chest wall Resp: EFFORT & INSPECTION: Yes able to speak in complete sentences, Yes symmetric chest movement, Yes tachypneic, Yes labored, Yes retractions, Yes uses accessory muscles and Yes audible wheezes AUSCULTATION: no crackles, no rales, rhonchi and wheezes Cardio: COMMON NORMALS: no JVD, regular rate, regular rhythm, S1 normal heart sound present and S2 normal heart sound present RATE: regular rate RHYTHM: regular rhythm HEART SOUNDS: S1 normal heart sound present, S2 normal heart sound present, no click, no gallops, no murmurs, no rubs and abnormal split S2 GI: COMMON NORMALS: Soft to palpation and No hepatosplenomegaly present PALPATION: Yes Soft to palpation, No Tenderness to palpation present (GI), No Guarding due to palpation present (GI), No Rigid due to palpation, Yes No hepatosplenomegaly present, No Hernia present, No Palpable mass present and No Pulsatile mass present : COMMON NORMALS: Yes no CVA tenderness BLADDER/KIDNEY EXAM: Yes no CVA tenderness EXTERNAL FEMALE EXAM: No Hernia present Back/Pelvis: COMMON NORMALS: no CVA tenderness, thoracic and lumbar spine normal to inspection, no thoracic nor lumbar tenderness and thoraco-lumbar ROM normal Extremity: COMMON NORMALS: normal to inspection, full ROM, capillary refill normal, no joint enlargement, no clubbing, cyanosis or edema and no calf tenderness Neuro: COMMON NORMALS: patient oriented x3, CN's II-XII intact bilaterally, moves all extremities, no focal motor deficits and no sensory deficits noted MENINGEAL SIGNS: Yes no meningeal signs SPEECH: speech normal Psych: COMMON NORMALS: mental status grossly normal, Normal thought process present, cooperative, normal affect, speech normal and activity/motor behavior normal APPEARANCE: Yes well kempt SPEECH: Yes normal speech THOUGHT PROCESS: Normal thought process present Skin: COMMON NORMALS: no rashes or lesions noted, turgor normal, no jaundice, no petechiae and no mottling GENERAL SKIN EXAM: no rashes or lesions noted and turgor normal Course Vital Signs: Vital signs: Vital Signs Temperature 98.0 F 10/13/19 07:38 Pulse Rate 81 10/13/19 08:59 Respiratory Rate 16 10/13/19 08:58 Blood Pressure 103/65 10/13/19 07:38 Pulse Oximetry 94 10/13/19 08:58 MDM - SOB/Dyspnea MDM Narrative: Medical decision making narrative: Ms. Zimmerman is a nice 79-year-old female who comes in with a moderate COPD exacerbation and lactic acidosis. Lactic acidosis felt to be secondary to her work of breathing. She is markedly better after treatments and has not necessitated BiPAP. I believe she will need a few more treatments and doses of steroids to get her symptoms under control. She is been without her medications for a week and I do not believe she will be able to recover from this just tonight in the ER. I have reviewed the case in full with Dr. Peacock and he is in agreement to admit the patient for further evaluation and care. Lab Data: Attestation: I reviewed the patient's lab results. Labs: Lab Results 10/12/19 10/12/19 10/12/19 Range/Units 00:29 21:40 21:42 WBC 5.4 (4.0-10.0) 10^3/ uL RBC 4.35 (4.1-5.3) 10^6/u L Hgb 14.3 (11.5-15.3) g/dL Hct 43.1 (37.0-47.0) % MCV 99.1 H (81-99) fL MCH 32.9 (28.0-34.0) pg MCHC 33.2 (30.0-36.0) g/dL RDW 11.9 L (12.1-15.1) % Plt Count 224 (130-400) 10^3/c mm MPV 10.2 (7.4-10.4) fL Neut % (Auto) 54.7 % Lymph % (Auto) 21.5 % [place] % (Auto) 9.3 % Eos % (Auto) 13.7 % Baso % (Auto) 0.6 % Neut # (Auto) 2.95 (1.8-7.7) 10^3/u L Lymph # (Auto) 1.2 (0.8-4.8) 10^3/u L [place] # (Auto) 0.5 (0.2-0.9) 10^3/u L Eos # (Auto) 0.7 (0.0-0.8) 10^3/u L Baso # (Auto) 0.0 (0.0-0.1) 10^3/u L Nucleated RBC % (a uto) 0 % Nucleated RBCs # 0.0 /100WBC Specimen Type Arterial Sample Site Brachial, right ABG pH 7.43 (7.35-7.45) ABG pCO2 37.7 (35-45) mmHg ABG pO2 72.9 L (80.0-100.0) mmH g ABG HCO3 24.7 (22-26) mmol/L ABG Base Excess 0.5 (-2.0-2.0) mmol/ L Edgar Test N/a Hematocrit 45.6 (37-47) % O2 Delivery Device Nc O2 Liters/Min 2.0 % Recreational Counselor ID Harkr Sodium (136-145) mmol/L Potassium (3.5-5.1) mmol/L Chloride (98-107) mmol/L Carbon Dioxide (22-29) mmol/L Anion Gap (5-19) BUN (8-23) mg/dL Creatinine (0.5-0.9) mg/dL GFR Calculation Glucose (65-115) mg/dL Calculated Osmolal ity (285-295) mOsm/k g Lactic Acid (0.5-2.2) mmol/L Lactic Acid (Sepsi s) 1.2 (0.5-2.2) mmol/L Calcium (8.5-10.5) mg/dL Magnesium (1.7-2.3) mg/dL Total Bilirubin (0.15-1.2) mg/dL AST (0-32) U/L ALT (0-33) U/L Alkaline Phosphata se (35-105) IU/L Troponin T Baselin e (0-10) ng/L Troponin T 120 Min [place] (0-10) ng/L Delta Troponin T (0-10) ABS# Total Protein (6.6-8.7) g/dL Albumin (3.5-5.2) g/dL Globulin (1.3-4.6) g/dL 10/12/19 10/12/19 10/12/19 Range/Units 21:42 21:42 21:42 WBC (4.0-10.0) 10^3/ uL RBC (4.1-5.3) 10^6/u L Hgb (11.5-15.3) g/dL Hct (37.0-47.0) % MCV (81-99) fL MCH (28.0-34.0) pg MCHC (30.0-36.0) g/dL RDW (12.1-15.1) % Plt Count (130-400) 10^3/c mm MPV (7.4-10.4) fL Neut % (Auto) % Lymph % (Auto) % [place] % (Auto) % Eos % (Auto) % Baso % (Auto) % Neut # (Auto) (1.8-7.7) 10^3/u L Lymph # (Auto) (0.8-4.8) 10^3/u L [place] # (Auto) (0.2-0.9) 10^3/u L Eos # (Auto) (0.0-0.8) 10^3/u L Baso # (Auto) (0.0-0.1) 10^3/u L Nucleated RBC % (a uto) % Nucleated RBCs # /100WBC Specimen Type Sample Site ABG pH (7.35-7.45) ABG pCO2 (35-45) mmHg ABG pO2 (80.0-100.0) mmH g ABG HCO3 (22-26) mmol/L ABG Base Excess (-2.0-2.0) mmol/ L Edgar Test Hematocrit (37-47) % O2 Delivery Device O2 Liters/Min % Recreational Counselor ID Sodium 135 L (136-145) mmol/L Potassium 4.0 (3.5-5.1) mmol/L Chloride 99 (98-107) mmol/L Carbon Dioxide 24 (22-29) mmol/L Anion Gap 16.0 (5-19) BUN 13 (8-23) mg/dL Creatinine 0.6 (0.5-0.9) mg/dL GFR Calculation Not Reportable Glucose 157 H (65-115) mg/dL Calculated Osmolal ity 279 L (285-295) mOsm/k g Lactic Acid 3.6 H (0.5-2.2) mmol/L Lactic Acid (Sepsi s) (0.5-2.2) mmol/L Calcium 9.7 (8.5-10.5) mg/dL Magnesium 2.2 (1.7-2.3) mg/dL Total Bilirubin 0.9 (0.15-1.2) mg/dL AST 17 (0-32) U/L ALT 13 (0-33) U/L Alkaline Phosphata se 93 (35-105) IU/L Troponin T Baselin e 8 (0-10) ng/L Troponin T 120 Min [place] (0-10) ng/L Delta Troponin T (0-10) ABS# Total Protein 6.8 (6.6-8.7) g/dL Albumin 4.3 (3.5-5.2) g/dL Globulin 2.5 (1.3-4.6) g/dL 10/11/ Range/Units 23:30 WBC (4.0-10.0) 10^3/ uL RBC (4.1-5.3) 10^6/u L Hgb (11.5-15.3) g/dL Hct (37.0-47.0) % MCV (81-99) fL MCH (28.0-34.0) pg MCHC (30.0-36.0) g/dL RDW (12.1-15.1) % Plt Count (130-400) 10^3/c mm MPV (7.4-10.4) fL Neut % (Auto) % Lymph % (Auto) % [place] % (Auto) % Eos % (Auto) % Baso % (Auto) % Neut # (Auto) (1.8-7.7) 10^3/u L Lymph # (Auto) (0.8-4.8) 10^3/u L [place] # (Auto) (0.2-0.9) 10^3/u L Eos # (Auto) (0.0-0.8) 10^3/u L Baso # (Auto) (0.0-0.1) 10^3/u L Nucleated RBC % (a uto) % Nucleated RBCs # /100WBC Specimen Type Sample Site ABG pH (7.35-7.45) ABG pCO2 (35-45) mmHg ABG pO2 (80.0-100.0) mmH g ABG HCO3 (22-26) mmol/L ABG Base Excess (-2.0-2.0) mmol/ L Edgar Test Hematocrit (37-47) % O2 Delivery Device O2 Liters/Min % Recreational Counselor ID Sodium (136-145) mmol/L Potassium (3.5-5.1) mmol/L Chloride (98-107) mmol/L Carbon Dioxide (22-29) mmol/L Anion Gap (5-19) BUN (8-23) mg/dL Creatinine (0.5-0.9) mg/dL GFR Calculation Glucose (65-115) mg/dL Calculated Osmolal ity (285-295) mOsm/k g Lactic Acid (0.5-2.2) mmol/L Lactic Acid (Sepsi s) (0.5-2.2) mmol/L Calcium (8.5-10.5) mg/dL Magnesium (1.7-2.3) mg/dL Total Bilirubin (0.15-1.2) mg/dL AST (0-32) U/L ALT (0-33) U/L Alkaline Phosphata se (35-105) IU/L Troponin T Baselin e (0-10) ng/L Troponin T 120 Min [place] 8.09 (0-10) ng/L Delta Troponin T 0.09 (0-10) ABS# Total Protein (6.6-8.7) g/dL Albumin (3.5-5.2) g/dL Globulin (1.3-4.6) g/dL Imaging Data^: CXR: My impression: Severe emphysema but no focal infiltrates or pneumothorax. EKG Data^: EKG 1: Attestation: I personally reviewed and interpreted this EKG as follows: EKG Interpretation Date: 10/12/19 EKG interpretation time: 21:37 Interpretation: Normal sinus rhythm at 93 beats a minute, no acute ST-T wave changes. Baseline artifact present. Discharge Plan Discharge Patient Disposition: Placed in Observation Admit Provider: Aramis Shea Clinical Impression: Acute exacerbation of chronic obstructive airways disease Condition: Stable Referrals: Kathleen Trejo MD [Primary Care Provider] - Discharge Date/Time: 10/13/19 00:57 Coding Level of Care Code ED [place] Machine Operator for Chg Fwd Exam Comprehensive
--- NOTE | 2019-10-12 22:38 | PM.HP ---
Providers/Chief Complaint Primary Care Provider: Kathleen Trejo MD Chief Complaint: sob History of Present Illness Dilcia Zimmerman is a 79 year old female who has history of asthma osteoarthritis came in with chief complaint of shortness of breath. She was discharged in May with similar complaints when she was put on doxycycline for bronchitis. Patient is stating that she ran out of her medications. Patient is stating that she has not been able to carry her daily activities at home denying fever, cough, dysuria, diarrhea chest pain palpitation headache. She does not use oxygen at home, she is only using Xopenex at home, she is stating that she did not know who to call to refill her medications. She did not call her PCP. No sick contacts, no recent traveling. She is denying smoking history, has not seen any window shade cutter and mounter, does not have pulmonary function test to verify her COPD, she is endorsing to secondhand smoking. She decided to come to the hospital today because of her active wheezing at home. Diagnosis in the ER revealed normal hemodynamics, currently saturating well on room air, hospital service was requested to admit her because of high lactic acid without any source of infection or sepsis, however she has received albuterol initially had respiratory distress, chest x-ray is unremarkable, chronic emphysematous changes, Review of Systems Const: Reports: fatigue and malaise; Denies: fever(s), chills or body aches Eyes: Denies: change in vision ENMT: Denies: throat pain Card: Reports: dyspnea on exertion; Denies: chest pain, palpitations, swelling of feet/ankles or syncope Resp: Reports: dyspnea GI: Denies: abdominal pain : Denies: flank pain Musc: Denies: neck pain Skin/Breast: Denies: rash Neuro: Denies: headache(s) Psych: Denies: anxiety Endo: Denies: polyuria Zain/Lymph: Denies: easy bruising All/Imm: Denies: urticaria Medications/Allergies Home Medications Medication Instructions Recorded Confirmed Last Taken Type Advair Diskus 1 inh INHALATION BID #60 each 05/27/19 Unknown Rx albuterol sulfate [Ventolin HFA] 1 inh INHALATION Q6H PRN #6.7 gm 06/13/19 Unknown Rx calcium carbonate-vitamin D3 1 ea PO DAILY #30 tab 06/13/19 Unknown Rx [Oyster Shell Calcium-Vit D3] Allergies Allergy/AdvReac Type Severity Reaction Status Date / Time No Known Allergies Allergy Verified 05/27/19 22:08 PFSH Acute PFSH: Medical History Asthma Hepatic cyst Hilar lymphadenopathy Lower back pain Osteoarthritis Osteoporosis Surgical History No pertinent past surgical history Family History Other Hypertension Social History Smoking and tobacco status: never smoked Alcohol intake: never Lives independently: Yes Household members: other Details: She lives alone Housing: House Vitals/I&O/Wt Last Vital Signs Temp 98.2 F 10/12/19 21:21 Pulse 90 10/12/19 21:53 Resp 18 10/12/19 21:40 BP 129/86 10/12/19 21:21 Pulse Ox 95 10/12/19 21:40 Weight last 48 hrs Weight 49.895 kg Physical Exam Narrative: EXAM NARRATIVE: Head to toe examination Very pleasant elderly female Currently saturating well on 2 L nasal cannula No active respiratory distress S1, S2 no tachycardia or heart failure Lungs are clear to auscultation with mild wheezing Abdomen soft nontender nondistended bowel sound present Neurologically nonfocal exam EOMI, PERRLA Skin does not show any sign ischemia gangrene ulcer petechia purpura Appropriate mood and affect Data : 10/12/19 21:42 10/12/19 21:42 A&P Assessment and plan (1) Acute respiratory failure with hypoxia: Status: Acute (2) Hepatic cyst: Status: Acute (3) Acute exacerbation of chronic obstructive airways disease: Status: Acute Additional A&P Information Acute hypoxic respiratory failure requiring 2 L of oxygen COPD exacerbation due to secondhand smoking exposure and noncompliance with her medication and oxygen Low risk for PE, will check d-dimer X-ray showing hyperinflated emphysematous lungs no previous history of smoking, liver cyst noticed on previous imaging, I would go ahead and test her for alpha-1 antitrypsin level She does not have any pulmonary function test to see severity of COPD I would recommend outpatient follow-up with window shade cutter and mounter Patient has been prescribed oxygen on previous admission but she is not using oxygen at all For her active wheezing I would use prednisone 40 mg for now continue calcium vitamin D for her osteoporosis as well. DuoNeb every 4hr Lactic acidosis secondary to respiratory stress versus use of albuterol: No signs of sepsis, no source of infection, she is not hypotensive This is most likely drug-induced GI prophylaxis protonix Patient is full code DVT prophylaxis Lovenox I do believe patient needs education regarding her underlying disease and PCP contact info to call for refill in case she needs in future Attestations Medical Necessity Statement*: Anticipating discharge in less than 48 hours currently need overnight monitoring because of her lactic acidemia secondary to respiratory distress, she is not compliant with her oxygen or treatment Time Spent in Patient Care: (>than 50% of time spent in counselling and/or direct pt care on unit). 45-minute Coding Level of Care Code Acute Dietary Manager for Gabrielle Turner Diagnoses Acute respiratory failure with hypoxia J96.01 Hepatic cyst K76.89 Acute exacerbation of chronic obstructive airways disease J44.1
[2019-10-12 22:47] VITALS: BP 103/67; PULSE 84; RESP 16; O2SAT 92
[2019-10-12] MEDS: sodium chloride 0.9% 1,000 ML 100 ML IV (22:52)
--- NOTE | 2019-10-12 23:19 | PC.NURSE ---
REPORT GIVEN TO JUSTIN PORTER ASSUMED CARE.
--- NOTE | 2019-10-12 23:31 | ECG_ITS ---
[facility] Test Date: 2019-10-12 Pat Name: Dilcia Zimmerman Department: Room: Gender: Female It Technical Architect: : 1940 Requested By: Mary Beth Mcconnell Order Number: [id number] Esme MD: Juan Arguello M.D. Measurements Intervals [place] Rate: 77 P: ID: -1 QRS: 40 QRSD: 88 T: 73 QT: 368 QTc: 419 Interpretive Statements Sinus rhythm with baseline artifact ABNORMAL RHYTHM ECG Compared to ECG 10/12/2019 21:37:54 No change Electronically Signed On 10-13-2019 16:16:01 CDT by Juan Arguello M.D. [id number]
[2019-10-12 23:34] LABS: Reflex Lactate Order REFLEX LACTIC ORDERD
[2019-10-13] VITALS (10 sets, daily range): BP systolic 96–130; BP diastolic 61–74; PULSE 14–81; RESP 16–21; TEMP 36.3–37.1; O2SAT 91–97
[2019-10-13 00:23] LABS: Troponin 5 2HR 8.09 ng/L (0-10); Troponin 5 2HR Delta 0.09 ABS# (0-10)
[2019-10-13 00:59] LABS: Lactic Acid level (Lactate) 1.2 mmol/L (0.5-2.2)
[2019-10-13 01:46] LABS: D Dimer 0.44 ug/mIFEU (0-0.59)
--- NOTE | 2019-10-13 02:29 | PC.NURSE ---
Notified Dr. Shea of patient refusal of Lovenox stating I should be going home tomorrow i think ill be okay education risk and benefits discussed with patient upon refusal. Physician aware and okayed.
[2019-10-13 05:16] LABS: Blood Urea Nitrogen 10 mg/dL (8-23); Calcium 8.6 mg/dL (8.5-10.5); Carbon Dioxide 24 mmol/L (22-29); Chloride 104 mmol/L (98-107); Creatinine Clr Calc Pharmacy 45.0249; Glucose 152 mg/dL (65-115); Osmolality Calculated 283 mOsm/kg (285-295); Sodium 137 mmol/L (136-145)
[2019-10-13 05:22] LABS: Lactate (Lactic Acid level) 1.7 mmol/L (0.5-2.2)
[2019-10-13] MEDS: predniSONE 20 mg Tablet 40 MG PO (08:48)
[2019-10-13] MEDS: calcium carb-vit d 500mg-200unit 1 Tablet 1 EACH PO (08:48)
[2019-10-13] MEDS: sennosides-docusate Tablet 1 TAB PO (08:48)
[2019-10-13] MEDS: pantoprazole DR 40 mg Tablet PO (08:48)
[2019-10-13] MEDS: ipratropium-albuterol 3 mL Neb INHALATION (08:52)
--- NOTE | 2019-10-13 09:00 | FL_ITS ---
WS: [id number] MODIFIED BARIUM SWALLOW TECHNIQUE: Modified barium swallow with speech therapy using multiple consistencies. FLUOROSCOPY TIME: 3.6 minutes. CLINICAL INFORMATION: Oropharyngeal dysphagia COMPARISON: None. FINDINGS: Multiple consistencies were utilized. Delayed oropharyngeal phase with early spillage. Pooling in the vallecula which cleared with additional swallows. Penetration with thin liquids. No liban aspiration . No difficulties with barium tablet. FL/FL barium swallow modifd 87887 IMPRESSION: 1. Penetration with thin liquids. No liban aspiration. 2. Delayed oropharyngeal phase with early spillage and pooling in the vallecul a.
--- NOTE | 2019-10-13 10:12 | PC.CHAP ---
Pastoral Care Encounter/Spiritual Assessment Type of Contact [] Declined scallop binder visit [] Patient/Family/Request visit [] Outpatient visit [] Follow-up visit [] Physician referral [] Code/Alert [x] Routine visit [] Staff referral [] Actively dying [] Patient sleeping [] Family support [] [] Out of room [] Palliative care [] [] Receiving care in room [] Pre-surgical visit [] Trauma [] Long length of stay [] ICU visit [] Other: Relational/Emotional Strength [] Patient feels connected with others/family/visitors/staff [] Distress [] Loneliness/isolation [] Abandonment Spirituality of Patient [] Person of Merayr [] Attends Uatsdin of their Merary [] Believes in Prayer [] Reads Bible or Sabianist materials [] There are Spiritual issues to be addressed Baby Counselor Interventions [x] Prayer [x] Active listening [x] Non-anxious presence [x] Spiritual/emotional support [] Crisis/trauma care [] Spiritual counseling [] Bereavement support [] Provided bereavement packet [] Provided Bible/devotional materials [] Provided toy/stuffed animal, coloring book to patient or family member [] Provided Communion [] Anointing/[place] [] Salvation [x] Completed spiritual assessment [] Other: Impact on Illness or Injury [] Angry [] Fearful [] Anxious [] Often cries [] Exhaustion [] Unable to work [] Unable to attend confucianist [] Unable to walk/stand [] Unable to read [] Unable to drive [] Unable to eat/drink [] Unable to sleep [] Unable to be with family [] Patient intubated [] Other: Summary patient resting well,. Time spent with patient 5 min
--- NOTE | 2019-10-13 10:50 | P.PN_ITS ---
Documented by User: Emiliana Arellano, MARGARITO STDNT 10/13/19 18:48 Subjective Subjective: Interval history: Patient is resting comfortably and says that she is feeling much better. She reports that her shortness of breath has improved significantly. Patient reports some recent yellow sputum production, which has changed from her baseline. Patient describes some recent runny nose. Patient denies chills or myalgias. When asked about her ability to swallow, patient says that she has noticed some difficulty swallowing water, some coughing after water and trouble swallowing large pills. Patient states that she has oxygen at home but does not use it because she cannot remember how to use it safely. Patient also notes that advair has recently been cost prohibitive. Patient also reports constipation, which is common for her. Medications: Reviewed: Yes Vitals/I&O/Wt Last Vital Signs Temp 98.0 F 10/13/19 07:38 Pulse 81 10/13/19 08:59 Resp 16 10/13/19 08:58 BP 103/65 10/13/19 07:38 Pulse Ox 94 10/13/19 08:58 10/12/19 10/13/19 10/13/19 22:59 06:59 14:59 Intake Total 360 / 360 Output Total 350 / 350 Balance 10 / 10 Weight last 48 hrs Weight 110 lb Physical Exam Narrative: EXAM NARRATIVE: General: Alert and oriented x3. No acute distress. Appears thin. Lungs: Wheezes and rhonchi noted bilaterally. Cardio: Regular rate and rhythm, S1 and S2. No murmurs. Abdomen: Soft and nontender. No clubbing or guarding. Active bowel sounds. Extremities: No edema, clubbing, or cyanosis. Data : 10/12/19 21:42 10/13/19 04:19 A&P Assessment and plan (1) Acute exacerbation of chronic obstructive airways disease: Patient has been titrated to 1L on nasal cannula and saturations ranged from 90-95. Not in acute distress, reports no dyspnea. Patient is afebrile and without leukocytosis. CXR showed no acute findings but continues to show severe hyperinflation associated with COPD. Due to increased sputum production, sputum purulence, and increased dyspnea on presentation, patient was started on IV Rocephin. Expect to transition to po on discharge. Sputum culture was ordered. Adjust antibiotics pending sputum results. Started on 40 mg prednisone po. Currently on day 2 of prednisone. Continue vitamin D due to osteporosis. D-dimer was normal. No clear signs of sepsis. Elevated lactate on admission was likely secondary to respiratory muscle fatigue or use of inhaled beta agonist. Continue duoneb every 4hr Recommend follow-up with PCP. As described above, patient was noted to have some difficulty swallowing. This could present risk for aspiration and contribute to her frequent COPD exacerations. Barium swallow was ordered to evaluate swallowing. Patient is npo this morning and diet can be modified pending swallow results. As mentioned above, patient reports that she has home oxygen, but is unsure of how to use it safely. Home oxygen suppliers will visit patient's home to assure that she has a good understanding of its use. dining services director discussed implementation of home health services and patient declined home healthcare. As described above, patient noted that advair was cost prohibitive. dining services director will discuss medication access with patient. Patient reports that she has never smoked, but that her was chronic smoker and her daughter currently smokes. Status: Acute (2) Acute respiratory failure with hypoxia: Continues to improve as noted above. No longer in acute distress and denies dyspnea. Status: Acute (3) Hepatic cyst: Imaging on 06/11 noted multiple hepatic masses and recommended follow-up in 3 months. Unclear if patient has followed-up for this finding. Recommend discussion of hepatic masses with PCP and potential imaging on outpatient basis. Status: Acute Additional A&P Information Continue GI prophylaxis with protonix. Full code N.p.o. DVT prophylaxis Lovenox. Attestations Medical Necessity Statement*: Patient needs continued evaluation of respiratory status due to acute COPD exacerbation. Coding Level of Care Code Acute Audio Visual Aide for [facility] Fwd Diagnoses Acute exacerbation of chronic obstructive airways disease J44.1 Acute respiratory failure with hypoxia J96.01 Hepatic cyst K76.89 Documented by User: Ankit Malave MD 10/13/19 20:00 Data : 10/12/19 21:42 10/13/19 04:19 Attestations Medical Necessity Statement*: Requiring admission of over 2 midnights for assessment management of COPD exacerbation, hypoxia, possible aspiration. Other Attestations: She reports that she is feeling slightly better compared to presentation. She has gotten up to walk to the restroom. She has been having quite a bit of wheezing, and cough productive of yellow sputum. She has been requiring oxygen during this hospitalization, although does not normally wear it at home. She was previously set up with oxygen and instructed how to use it, however, says that she forgot how to use it, and so has not put it on since then. During administration of medications there was concern for cough, and concern for possible aspiration. Due to this speech therapy evaluation was obtained, and modified barium swallow study scheduled. She will need to maintain strict aspiration precautions, as aspirations could be contributing to her COPD exacerbation. For this she continues at this time on prednisone, breathing treatments. Rocephin was added due to presence of purulent sputum. Of note she was previously prescribed Advair, but was not able to fill her prescription. We will call her prescription in so she may start using this medication at home. Prescription with case management home of the [facility] will also come out to her place to do additional teaching on how to use her oxygen equipment. She will need home O2 evaluation prior to discharge. Due to persi stence of wheezing, cough, hypoxia, with suspected severe COPD exacerbation, for now she is requiring inpatient admission, and we will reevaluate again her condition in the morning. She does live alone, however, her daughter does live nearby, and checks on her occasionally. She declines home health. She is awake and alert, frail-appearing elderly lady. Pleasant. Conversant. MMM No JVD RRR Lungs with wheezing, faint rhonchi. Abdomen soft, nontender, nondistended No peripheral edema No rash. Coding Level of Care Code Acute Audio Visual Aide for Gabrielle Turner Diagnoses Acute exacerbation of chronic obstructive airways disease J44.1 Acute respiratory failure with hypoxia J96.01 Hepatic cyst K76.89
[2019-10-13] MEDS: cefTRIAXone 1,000 MG in sodium chloride 0.9% (plus) 50 ML 100 MG IV (11:44)
--- NOTE | 2019-10-13 13:06 | PC.RESP ---
Pulmonary Rehab information sent to patient.
--- NOTE | 2019-10-13 18:13 | PC.SLP ---
The patient had just finished eating her supper, before the patient could be evaluated by INSPECTOR SHELLS. The patient did not ready for further oral trials. INSPECTOR SHELLS will follow up with the patient tomorrow. The patient did have a modified barium swallow study earlier today. The patient did have a possible aspiration episode earlier today when taking a drink of water to swallow her her medication.
[2019-10-14] VITALS (8 sets, daily range): BP systolic 102–114; BP diastolic 55–78; PULSE 65–95; RESP 16–18; TEMP 36.1–36.6; O2SAT 90–94
[2019-10-14] MEDS: enoxaparin 40 mg/0.4 mL Syringe SUBCUT (01:47)
[2019-10-14 05:05] LABS: Anion Gap 12.1 (5-19); Blood Urea Nitrogen 16 mg/dL (8-23); Calcium 8.5 mg/dL (8.5-10.5); Carbon Dioxide 26 mmol/L (22-29); Chloride 107 mmol/L (98-107); Creatinine Clr Calc Pharmacy 45.0249; Glucose 96 mg/dL (65-115); Osmolality Calculated 288 mOsm/kg (285-295); Potassium 4.1 mmol/L (3.5-5.1); Sodium 141 mmol/L (136-145)
[2019-10-14] MEDS: ipratropium-albuterol 3 mL Neb INHALATION (08:38)
[2019-10-14] MEDS: calcium carb-vit d 500mg-200unit 1 Tablet 1 EACH PO (08:57)
[2019-10-14] MEDS: pantoprazole DR 40 mg Tablet PO (08:57)
[2019-10-14] MEDS: predniSONE 20 mg Tablet 40 MG PO (08:57)
[2019-10-14] MEDS: sennosides-docusate Tablet 1 TAB PO (08:57)
[2019-10-14] MEDS: cefTRIAXone 1,000 MG in sodium chloride 0.9% (plus) 50 ML 100 MG IV (11:38)
--- NOTE | 2019-10-14 11:46 | PM.DCS ---
Discharge Providers Date of Admission: 10/13/19 18:46 Date of Discharge: October 14, 2019 Attending Provider at Admission: Aramis Shea MD Attending Provider at Discharge: Ankit Malave Primary Care Provider: Kathleen Trejo MD Diagnoses at Discharge Discharge Diagnosis (1) Acute exacerbation of chronic obstructive airways disease: Status: Acute (2) Acute respiratory failure with hypoxia: Status: Acute (3) Hepatic cyst: Status: Acute Reason for Visit Reason for Visit: sob Hospital Course Hospital Course: Very pleasant 79-year-old lady with history of COPD, has oxygen available at home, however, says that she forgot how to use it after she was initially instructed, was admitted due to exacerbation of COPD, with shortness of breath, wheezing, cough productive of yellow sputum, received treatment with steroid, antibiotic, breathing treatments, oxygen support. She is feeling much better today. Has been getting up in her room. Examination wheezing has resolved. Will complete a course of Levaquin and prednisone at home. A prescription for Advair had been called in for her as she could not fill it previously. We have also requested a construction sales representative from HOME to come help explain to her again how much oxygen she is needing. She is actually on minimal oxygen currently, and will undergo home evaluation as to how much she may need, which appears she may need it altogether with treatment. Alpha-1 antitrypsin level had been ordered on admission and is pending. Please follow-up on this. She was noted to have minimal penetration with thin liquids on modified barium swallow which was done after she was noted having some coughing while taking medications. Minimal aspiration intermittently may be contributing to airway inflammation, and so she was instructed to maintain strict aspiration precautions, was seen by speech therapy here. Please follow-up with her, and rerefer for additional speech therapy as needed. Of note she does need additional follow-up for hepatic cyst which was previously identified. Please help her arrange for this. Could not reach her daughter over the phone to discuss with her as well. Physical Exam Const: COMMON NORMALS: no acute distress and patient oriented x3 GENERAL APPEARANCE: frail appearing HENMT: COMMON NORMALS: oropharynx normal Neck/C-Spine: COMMON NORMALS: no JVD Resp: COMMON NORMALS: normal respiratory effort and clear to auscultation bilaterally AUSCULTATION: clear to auscultation bilaterally Cardio: COMMON NORMALS: no JVD, regular rhythm, S1 normal heart sound present, S2 normal heart sound present and No murmurs present (Cardio) RHYTHM: regular rhythm HEART SOUNDS: S1 normal heart sound present and S2 normal heart sound present GI: COMMON NORMALS: Normal to inspection, nondistended, normoactive bowel sounds present, Soft to palpation and non-tender PALPATION: Yes Soft to palpation Extremity: COMMON NORMALS: no joint enlargement and no pedal edema Neuro: COMMON NORMALS: patient oriented x3 and moves all extremities Skin: COMMON NORMALS: no rashes or lesions noted GENERAL SKIN EXAM: no rashes or lesions noted Discharge Data Data Completed and Pending: Completed Studies During Hospitalization Category Date Time Status FL barium swallow modifd 24892 Rout ine Exams 10/13/19 09:00 Completed XR chest 1V denis ble [id number] Stat Exams 10/12/19 21:30 Completed Pending at discharge Category Date Time Status Alpha 1 Antitryps in Routine Lab 10/13/19 04:19 Received Basic Metabolic P eva AM LABS Lab 10/15/19 04:00 Ordered Basic Metabolic P eva AM LABS Lab 10/16/19 04:00 Ordered Sputum Culture an d Gram Stain Routi ne Lab 10/13/19 18:45 Uncollected Labs from last 24 hours 10/14/19 03:33 Sodium 141 Potassium 4.1 Chloride 107 Carbon Dioxide 26 Anion Gap 12.1 BUN 16 Creatinine 0.6 GFR Calculation Not Reportable Glucose 96 Calculated Osmolal ity 288 Calcium 8.5 Vitals: Last Vital Signs Temp 97.9 F 10/14/19 11:12 Pulse 95 10/14/19 11:12 Resp 18 10/14/19 11:12 BP 114/78 10/14/19 11:12 Pulse Ox 93 10/14/19 11:16 Discharge Plan Discharge Patient Disposition: Home Condition: Stable Prescriptions: New Levaquin 750 mg tablet 750 mg PO DAILY 6 Days Qty: 6 RF: 0 prednisone 20 mg Tablet 40 mg PO DAILY Qty: 8 RF: 0 Continued Advair Diskus 250-50 mcg/dose blister with device 1 inh INHALATION BID Qty: 60 RF: 0 Oyster Shell Calcium-Vit D3 500 mg(1,250mg) -200 unit Tablet 1 ea PO DAILY Qty: 30 RF: 0 Ventolin HFA 90 mcg/actuation HFA aerosol inhaler 1 inh INHALATION Q6H PRN (Reason: shortness of breath or wheezing) Qty: 6.7 RF: 0 Discharge Orders: Discharge Order (Routine); Ordered 10/14/19 Ordered By: Ankit Malave Referrals: Kathleen Trejo MD [Primary Care Provider] - 4-7 days [facility], [Staff Physician] - (You can follow up with a provider in the this clinic to get your Advair Diskus medication prescribed to you under the 340B program so that it is more affordable. If you have any questions, you may call the phone number provided or call the [facility] at [phone].) Discharge Diet: Cardiac Discharge Activity: Increase activity as tolerated and Oxygen as instructed Patient Instructions: Bronchitis (Acute) - Adult, COPD, Prednisone (By mouth), Levofloxacin (By mouth), COPD Stoplight Activity Restrictions/Additional Instructions: A construction sales representative from HOME will come to your house to help explain how to use your oxygen. Please work with them to set up a convenient time. Please work with your primary care doctor with regards to COPD, and optimization of your medications. Please maintain strict aspiration precautions. Please heed recommendations given by speech therapy. Please discuss with your primary care doctor follow-up for the hepatic cyst identified in the past to make sure it is not enlarging and is not anything concerning. If you get significantly short of breath, develop any chest pain, or other concerning symptoms, please seek medical attention. Discharge Attestations Time Spent in Discharge Care*: greater than 30 min Quality Metrics Clinical Quality Measures During this hospital stay, did patient experience: None Coding Level of Care Code Acute Software Business Analyst for Ch[facility] Fwd Diagnoses Acute exacerbation of chronic obstructive airways disease J44.1 Acute respiratory failure with hypoxia J96.01 Hepatic cyst K76.89
--- NOTE | 2019-10-14 13:30 | PC.NURSE ---
Iv DC'd cath intact bleeding controlled with 2x2's and coban. to main entrance via wheelchair to personal vehicle with no difficulties
[2019-10-16 12:40] LABS: Alpha 1 Antitrypsin 131 mg/dL (83-199)
== END 2019-10-14 13:30 | disposition home or self-care (01) | DRG 189 ==
LOC: ER 23:12 → MEDSURG 10-13
PROVIDERS: Emergency Medicine; Admitting Provider Internal Medicine; PCP Family Medicine; Visit Provider Internal Medicine
DX: J96.01 Acute respiratory failure with hypoxia (principal); J44.1 Chronic obstructive pulmonary disease with (acute) exacerbation; E87.2 Acidosis; K76.89 Other specified diseases of liver; M81.0 Age-related osteoporosis without current pathological fracture; M19.90 Unspecified osteoarthritis, unspecified site; Z77.22 Contact with and (suspected) exposure to environmental tobacco smoke (acute) (chronic); Z91.14 Patient's other noncompliance with medication regimen
CPT/HCPCS: 12345; 36415; 36600; 71045; 74230; 80048; 80053; 82103; 82803; 83605; 83735; 84484; 85025; 85378; 92610; 92611; 93005; 94640; 96372; 96375; 99283; G0378; J0696; J1650; J2930; J7030; J7512

== ENCOUNTER 2019-12-05 11:31 | Emergency (ER) | payer MEDICARE, OTHER, SELFPAY ==
[2019-12-05] VITALS (7 sets, daily range): BP systolic 121–161; BP diastolic 69–78; PULSE 58–74; RESP 16–24; TEMP 36.5; O2SAT 94–97; BMI 17.9
--- NOTE | 2019-12-05 11:34 | ECG_ITS ---
[facility] Test Date: 2019-12-05 Pat Name: Dilcia Zimmerman Department: Room: Gender: Female Cs Associate: : 1940 Requested By: Rell Alba Order Number: [id number] Esme MD: Briana Hernandez M.D. Measurements Intervals [place] Rate: 67 P: [place]: -1 QRS: 21 QRSD: 90 T: 62 QT: 412 QTc: 438 Interpretive Statements Normal sinus rhythm Heavy baseline artifact, need to repeat Compared to ECG 10/12/2019 23:37:45 Comparison is difficult because of the artifacts Electronically Signed On 12-05-2019 18:31:48 CDT by Briana Hernandez M.D. [id number] f
--- NOTE | 2019-12-05 11:34 | XRR_ITS ---
PROCEDURE INFORMATION: Exam: XR Chest, 1 View Exam date and time: 12/05/2019 12:00 PM Age: 79 years old Clinical indication: Cough and dyspnea; Prior surgery; Surgery type: Breast bx; Patient HX: N/v, chest pain; Additional info: Dyspnea/cough TECHNIQUE: Imaging protocol: XR of the chest Views: 1 view. COMPARISON: CR XR chest 1V portable [id number] 10/12/2019 9:42 PM FINDINGS: Lungs: Lungs are well aerated without a focal area of consolidation. Pleural space: Unremarkable. No pleural effusion. No pneumothorax. Heart/Mediastinum: The cardiac silhouette appears enlarged, some of which is magnification related to the AP projection. Bones/joints: Unremarkable. XR/XR chest 1V portable [id number] IMPRESSION: Lungs are well aerated without a focal area of consolidation. Severe emphysema
[2019-12-05] MEDS: ondansetron 2 mg/ML SDV 2 mL 4 MG IVP (11:58)
[2019-12-05 11:59] LABS: Basophils % 0.3 %; Eosinophils % 0.5 %; Hematocrit 42.1 % (37.0-47.0); Hemoglobin 13.5 g/dL (11.5-15.3); Lymphocytes # 0.5 10^3/uL (0.8-4.8); Lymphocytes % 8.4 %; Mean Corpuscular HGB Conc 32.1 g/dL (30.0-36.0); Mean Corpuscular Hemoglobin 32.8 pg (28.0-34.0); Mean Corpuscular Volume 102.4 fL (81-99); Mean Platelet Volume 9.8 fL (7.4-10.4); Monocytes # 0.3 10^3/uL (0.2-0.9); Monocytes % 4.4 %; Neutrophils % 86.2 %; Nucleated Red Blood Cells % 0 %; Platelet Count 191 10^3/cmm (130-400); Red Blood Count 4.11 10^6/uL (4.1-5.3); Red Cell Distribution Width 11.8 % (12.1-15.1); White Blood Count 5.9 10^3/uL (4.0-10.0)
--- NOTE | 2019-12-05 12:07 | ED_ITS ---
HPI - Abdominal Pain General: Chief Complaint: Abdominal Pain Stated Complaint: ABD PAIN, NAUSEA Time Seen by Provider: 12/05/19 11:33 History of Present Illness: HPI narrative: 79-year old female presents emergency room with abdominal pain nausea and vomiting for the last 2 days. Difficult time keeping anything down patient is demented so cannot really get any significant history from her she denies chest pain shortness of breath dysuria urgency or frequency. MD elicited complaint: abdominal pain Onset (ago): day(s) (2) Pain Consistency: constant Location: Suprapubic Severity: moderate Quality: cramping Radiation: none Migration to: no migration Exacerbating factors: nothing Relieving factors: nothing Associated Symptoms: Reports anorexia, bloating, GI cramping and nausea; Denies belching, change in bowel habits, change in stool character, chills, coffee ground emesis, constipation, diarrhea, dyspepsia, dysuria, excessive flatus, fever(s), heartburn, hematochezia, hematuria, hematemesis, fecal incontinence, loose stools, melena, poor appetite, syncope and vomiting Review of Systems Const: Denies: fever(s) or chills ENMT: Denies: throat pain, ear or mastoid pain, nasal discharge or nasal congestion Card: Denies: syncope Resp: Denies: dyspnea, productive cough or non-productive cough GI: Reports: nausea, bloating and GI cramping; Denies: vomiting, hematemesis, coffee ground emesis, heartburn, diarrhea, constipation, belching, excessive flatus, fecal incontinence, change in bowel habits, change in stool character, hematochezia or melena : Denies: dysuria or hematuria Skin/Breast: Denies: rash or pruritus PFSH ED PFSH: Medical History Asthma Hepatic cyst Hilar lymphadenopathy Lower back pain Osteoarthritis Osteoporosis Surgical History No pertinent past surgical history Family History (Updated 12/07/19 @ 14:07 by Dulce Maria Cruz LPN) Father CAD (coronary artery disease) Overweight Diabetes Mother Dementia Brother Lung disease Smoker Other Hypertension Denies family history of Clotting disorder Hyperlipidemia Psychiatric illness Chronic kidney disease (CKD) Suicide Anesthesia complication Bleeding disorder Family history of premature coronary artery disease Cancer Stroke Social History (Updated 12/07/19 @ 14:07 by Dulce Maria Cruz LPN) Smoking and tobacco status: never smoked Alcohol intake: never Lives independently: Yes Household members: other Details: She lives alone Housing: House Physical Exam Const: COMMON NORMALS: average body habitus, patient oriented x3 and alert GENERAL APPEARANCE: cooperative, comfortable, well kempt and well developed NUTRITIONAL APPEARANCE: obese ORIENTATION/CONSCIOUSNESS: Yes oriented to person and Yes oriented to place HENMT: COMMON NORMALS: normocephalic, atraumatic and EAC's normal HEAD & SCALP: normocephalic and atraumatic EXTERNAL AUDITORY CANAL: EAC's normal Eye: COMMON NORMALS: Equal, round and reactive pupils present, EOMs intact bilaterally, conjunctivae normal and no scleral icterus CONJUNCTIVA: Yes conjunctivae normal PUPIL: Yes Equal, round and reactive pupils present Neck/C-Spine: COMMON NORMALS: full ROM, no lymphadenopathy, supple, no meningeal signs and Thyroid normal THYROID: Thyroid normal and asymmetrical Lymph: LYMPHATIC: no lymphadenopathy noted Resp: COMMON NORMALS: normal respiratory effort, No retractions, No use of accessory muscles and clear to auscultation bilaterally AUSCULTATION: clear to auscultation bilaterally Cardio: COMMON NORMALS: regular rate and regular rhythm RATE: regular rate RHYTHM: regular rhythm HEART SOUNDS: no murmurs GI: COMMON NORMALS: Normal to inspection, nondistended, normoactive bowel sounds present and No hepatosplenomegaly present PALPATION: Yes Tenderness to palpation present (GI) (Mild diffuse tenderness), No Guarding due to palpation present (GI) and Yes No hepatosplenomegaly present : COMMON NORMALS: Yes no CVA tenderness BLADDER/KIDNEY EXAM: Yes no CVA tenderness Back/Pelvis: COMMON NORMALS: no CVA tenderness LUMBAR SPINE/LOWER BACK: Yes normal to inspection Extremity: COMMON NORMALS: no clubbing, cyanosis or edema, no calf tenderness and no pedal edema Neuro: COMMON NORMALS: patient oriented x3 SENSORIUM/ORIENTATION: Yes alert, Yes oriented to person and Yes oriented to place MENINGEAL SIGNS: Yes no meningeal signs Psych: APPEARANCE: Yes well kempt Skin: COMMON NORMALS: no rashes or lesions noted and turgor normal GENERAL SKIN EXAM: no rashes or lesions noted and turgor normal Course Vital Signs: Vital signs: Vital Signs Temperature 97.7 F 12/05/19 11:33 Pulse Rate 72 12/05/19 15:08 Respiratory Rate 20 H 12/05/19 15:08 Blood Pressure 143/77 12/05/19 15:08 Pulse Oximetry 94 12/05/19 15:08 MDM - Abdominal Pain MDM Narrative: Medical decision making narrative: Will need EGD at a later date for changes noted on CT for distal esophagus and stomach. Discussed CT results with radiologist there is a large what appears to be ovarian cyst present. It does not appear to be the bladder however will place a Singh to get a urine sample and confirm whether or not this is actually acute urinary intention. Lab Data: Labs: Lab Results 12/05/19 12/05/19 12/05/19 Range/Units 11:53 11:53 11:53 WBC 5.9 (4.0-10.0) 10^3/ uL RBC 4.11 (4.1-5.3) 10^6/u L Hgb 13.5 (11.5-15.3) g/dL Hct 42.1 (37.0-47.0) % MCV 102.4 H (81-99) fL MCH 32.8 (28.0-34.0) pg MCHC 32.1 (30.0-36.0) g/dL RDW 11.8 L (12.1-15.1) % Plt Count 191 (130-400) 10^3/c mm MPV 9.8 (7.4-10.4) fL Neut % (Auto) 86.2 % Lymph % (Auto) 8.4 % [place] % (Auto) 4.4 % Eos % (Auto) 0.5 % Baso % (Auto) 0.3 % Neut # (Auto) 5.10 (1.8-7.7) 10^3/u L Lymph # (Auto) 0.5 L (0.8-4.8) 10^3/u L [place] # (Auto) 0.3 (0.2-0.9) 10^3/u L Eos # (Auto) 0.0 (0.0-0.8) 10^3/u L Baso # (Auto) 0.0 (0.0-0.1) 10^3/u L Nucleated RBC % (a uto) 0 % Nucleated RBCs # 0.0 /100WBC Sodium 137 (136-145) mmol/L Potassium 3.7 (3.5-5.1) mmol/L Chloride 103 (98-107) mmol/L Carbon Dioxide 22 (22-29) mmol/L Anion Gap 15.7 (5-19) BUN 6 L (8-23) mg/dL Creatinine 0.5 (0.5-0.9) mg/dL GFR Calculation Not Reportable Glucose 160 H (65-115) mg/dL Calculated Osmolal ity 285 (285-295) mOsm/k g Lactic Acid 1.6 (0.5-2.2) mmol/L Calcium 9.2 (8.5-10.5) mg/dL Total Bilirubin 1.7 H (0.15-1.2) mg/dL AST 15 (0-32) U/L ALT 11 (0-33) U/L Alkaline Phosphata se 68 (35-105) IU/L Total Protein 6.2 L (6.6-8.7) g/dL Albumin 3.8 (3.5-5.2) g/dL Globulin 2.4 (1.3-4.6) g/dL Lipase 26 (13-60) U/L Urine Color (Yellow) Urine Appearance (CLEAR) Urine pH (5-7) Ur Specific Gravit y (1.005-1.030) Urine Protein (Negative) Urine Glucose (UA) (Normal) Urine Ketones (Negative) Urine Blood (Negative) Urine Nitrate (Negative) Urine Bilirubin (Negative) Urine Urobilinogen (Negative) mg/dL Ur Leukocyte Dorothea ase (Negative) 12/05/19 Range/Units 13:50 WBC (4.0-10.0) 10^3/ uL RBC (4.1-5.3) 10^6/u L Hgb (11.5-15.3) g/dL Hct (37.0-47.0) % MCV (81-99) fL MCH (28.0-34.0) pg MCHC (30.0-36.0) g/dL RDW (12.1-15.1) % Plt Count (130-400) 10^3/c mm MPV (7.4-10.4) fL Neut % (Auto) % Lymph % (Auto) % [place] % (Auto) % Eos % (Auto) % Baso % (Auto) % Neut # (Auto) (1.8-7.7) 10^3/u L Lymph # (Auto) (0.8-4.8) 10^3/u L [place] # (Auto) (0.2-0.9) 10^3/u L Eos # (Auto) (0.0-0.8) 10^3/u L Baso # (Auto) (0.0-0.1) 10^3/u L Nucleated RBC % (a uto) % Nucleated RBCs # /100WBC Sodium (136-145) mmol/L Potassium (3.5-5.1) mmol/L Chloride (98-107) mmol/L Carbon Dioxide (22-29) mmol/L Anion Gap (5-19) BUN (8-23) mg/dL Creatinine (0.5-0.9) mg/dL GFR Calculation Glucose (65-115) mg/dL Calculated Osmolal ity (285-295) mOsm/k g Lactic Acid (0.5-2.2) mmol/L Calcium (8.5-10.5) mg/dL Total Bilirubin (0.15-1.2) mg/dL AST (0-32) U/L ALT (0-33) U/L Alkaline Phosphata se (35-105) IU/L Total Protein (6.6-8.7) g/dL Albumin (3.5-5.2) g/dL Globulin (1.3-4.6) g/dL Lipase (13-60) U/L Urine Color Yellow (Yellow) Urine Appearance Clear (CLEAR) Urine pH 8 H (5-7) Ur Specific Gravit y 1.005 (1.005-1.030) Urine Protein Neg (Negative) Urine Glucose (UA) Norm (Normal) Urine Ketones 1+ H (Negative) Urine Blood Neg (Negative) Urine Nitrate Negative (Negative) Urine Bilirubin Neg (Negative) Urine Urobilinogen Neg (Negative) mg/dL Ur Leukocyte Dorothea ase Negative (Negative) Discharge Plan Discharge Patient Disposition: Home Clinical Impression: Cyst, ovarian Condition: Stable Prescriptions: New hydrocodone-acetaminophen 5-325 mg tablet 1 tab PO Q6H PRN (Reason: pain) Qty: 15 RF: 0 Zofran 4 mg tablet 4 mg PO Q6H PRN (Reason: nausea and vomiting) Qty: 20 RF: 0 No Action Advair Diskus 250-50 mcg/dose blister with device 1 inh INHALATION BID Qty: 60 RF: 0 Oyster Shell Calcium-Vit D3 500 mg(1,250mg) -200 unit Tablet 1 ea PO DAILY Qty: 30 RF: 0 Ventolin HFA 90 mcg/actuation HFA aerosol inhaler 1 inh INHALATION Q6H PRN (Reason: shortness of breath or wheezing) Qty: 6.7 RF: 0 prednisone 20 mg Tablet 40 mg PO DAILY Qty: 8 RF: 0 Discharge Orders: Discharge Order (Routine); Ordered 12/05/19 Ordered By: Rell Dickinson Referrals: Kathleen Trejo MD [Primary Care Provider] - Discharge Diet: Usual diet Discharge Activity: Increase activity as tolerated Activity Restrictions/Additional Instructions: Case management will make arrangements for you to see gynecology for evaluation of the ovarian cyst at the first available appointment. You were prescribed pain medications and nausea medications to use in the interim. If symptoms worsen recheck. Discharge Date/Time: 12/05/19 15:08 Coding Level of Care Code ED Chief Nurse Anesthetist for Chg Fwd Exam Comprehensive
--- NOTE | 2019-12-05 12:08 | CT_ITS ---
WS: [id number] CT ABDOMEN PELVIS TECHNIQUE: Contrast-enhanced CT of the abdomen and pelvis with coronal and sagittal reformatted image s. CLINICAL INFORMATION: abd pain COMPARISON: CT 1 13,009 DLP: 192.[address] scans at [facility] use at least one of these dose optimization techniques: automat ed exposure control; mA and/or kV adjustment per patient size (includes targeted exams where dose is matched to clinical indication); or iterative reconstruction. FINDINGS: Mild diffuse fatty infiltration liver. Multiple hepatic cysts largest in the right hepatic lobe measu ring 2.2 cm similar to 2009. Some of these are too small to characterize. Normal portal vein and sple danitza vein. Normal spleen. Small esophageal hiatal hernia. Mild thickening at the GE junction. Diffuse circumferential submucosal enhancement involving the distal esophagus extending into the stomach with enhancement of the gastric rugae. This may be infectious or inflammatory due to esophagitis/gastriti s. However, recommend further evaluation with endoscopy to exclude neoplasm. Chronic emphysematous changes in the lung bases. Slight atelectasis in the lung bases. Adrenal glands are normal. Normal renal parenchymal enhancement. No hydronephrosis. Low-attenuation peripheral enhancing mass in the mid lower abdomen extending into the pelvis. This ap pears to be separate and compressing the underlying bladder which appears flattened and eccentric to the right. Low-attenuation mass measures 9.7 x 13.3 x 12.3 cm. Findings are suspicious for SUBSTANCE ABUSE NURSE neopla sm. No evidence of small or large bowel obstruction. Small amount of free fluid in the pelvis. Calcified uterine fibroids. IMPRESSION: 1. Large low-attenuation peripherally enhancing mass in the lower abdomen extending into the pelvis appears to be compressing the underlying adjacent bladder. This measures approximately 9.7 x 13.3 x 1 2.3 cm. Primary differential consideration includes ovarian neoplasm such as serous or mucinous cysta denoma/cystadenocarcinoma. No enhancing nodular components visualized. 2. Consider repeat pelvic CT or ultrasound after Singh catheter placement. 3. Bladder appears compressed and eccentric to the right. 4. Small amount of free fluid in the pelvis. 5. Calcified uterine fibroids. 6. Multiple low-attenuation lesions in the liver similar to 2009 most of which appear to represent h epatic cysts. Some are too small to characterize. 7. No hydronephrosis in either kidney. 8. Submucosal enhancement with thickening and edema involving the distal esophagus at the GE junctio n extending into the gastric fundus. This may be due to esophagitis/gastritis however recommend endos copy to exclude neoplasm. 9. No abdominal lymphadenopathy. Notified Rell Dickinson DO at 12/05/2019 1:19 PM.
[2019-12-05 12:29] LABS: Lactic Sepsis W/Reflex 1.6 mmol/L (0.5-2.2)
[2019-12-05 12:31] LABS: Alanine Aminotransferase 11 U/L (0-33); Albumin Level 3.8 g/dL (3.5-5.2); Alkaline Phosphatase 68 IU/L (35-105); Anion Gap 15.7 (5-19); Aspartate Amino Transferase 15 U/L (0-32); Blood Urea Nitrogen 6 mg/dL (8-23); Calcium 9.2 mg/dL (8.5-10.5); Carbon Dioxide 22 mmol/L (22-29); Chloride 103 mmol/L (98-107); Globulin 2.4 g/dL (1.3-4.6); Glucose 160 mg/dL (65-115); Lipase 26 U/L (13-60); Osmolality Calculated 285 mOsm/kg (285-295); Potassium 3.7 mmol/L (3.5-5.1); Sodium 137 mmol/L (136-145); Total Bilirubin 1.7 mg/dL (0.15-1.2); Total Protein 6.2 g/dL (6.6-8.7)
[2019-12-05] MEDS: iohexol 300 mg/mL 100 mL Btl IV (12:39)
[2019-12-05] MEDS: sodium chloride 0.9% 1,000 ML 999 ML IV (13:40)
[2019-12-05] MEDS: morphine 4 mg/mL SDV 1 mL 2 MG IVP (13:42)
[2019-12-05 14:22] LABS: Add Urine Microscopic? NO
[2019-12-05 14:28] LABS: Urine Appearance Clear (CLEAR); Urine Color Yellow (Yellow); pH Urine 8 (5-7)
[2019-12-05 14:29] LABS: Bilirubin Urine Neg (Negative); Blood Urine Neg (Negative); Glucose Urine UA Norm (Normal); Ketones Urine 1+ (Negative); Leukocyte Esterase Urine Negative (Negative); Nitrate Urine Negative (Negative); Protein Urine Neg (Negative); Specific Gravity, Urine 1.005 (1.005-1.030); Urobilinogen Urine Neg (Negative)
--- NOTE | 2019-12-05 15:11 | DCPLANNER ---
clinical study manager was asked to schedule a follow up appointment for patient with [facility]. clinical study manager spoke with [place], gave clinic patients information. clinical study manager was told that patients information would be printed and reviewed. Clinic will call patient with appointment information.
--- NOTE | 2019-12-06 07:55 | DCPLANNER ---
Patient has an appointment scheduled for , December 07, 2019 at 1:[address] Rahman. Clinic will call patient with appointment information.
--- NOTE | 2019-12-15 11:30 | DCPLANNER ---
Patient had a follow up appointment scheduled for 12.07.19 with [facility] - patient did attend appointment.
== END 2019-12-05 15:08 | disposition home or self-care (01) ==
PROVIDERS: Emergency Provider Family Medicine; PCP Family Medicine
DX: N83.209 Unspecified ovarian cyst, unspecified side (principal)
CPT/HCPCS: 12345; 36415; 51702; 71045; 74177; 80053; 81003; 83605; 83690; 85025; 93005; 96360; 96374; 96375; 96376; 99284; J2270; J2405; J7030; Q9967

== ENCOUNTER 2020-03-26 02:09 | Inpatient (IN) | payer MEDICARE, OTHER, SELFPAY ==
[2020-03-26] VITALS (14 sets, daily range): BP systolic 72–113; BP diastolic 42–78; PULSE 62–133; RESP 16–93; TEMP 36.4–36.9; O2SAT 92–98; BMI 19.0
--- NOTE | 2020-03-26 02:12 | XRR_ITS ---
PROCEDURE INFORMATION: Exam: XR Chest, 1 View Exam date and time: 03/26/2020 2:20 AM Age: 79 years old Clinical indication: Other: AMS; Patient HX: Covid + TECHNIQUE: Imaging protocol: XR of the chest Views: 1 view. COMPARISON: CR XR chest 1V portable [id number] 12/05/2019 11:46 AM FINDINGS: Lungs: The lungs are overinflated consistent with emphysema. No pulmonary infiltrates are seen. Pleural space: Unremarkable. No pleural effusion. No pneumothorax. Heart/Mediastinum: Unremarkable. No cardiomegaly. Bones/joints: Unremarkable. XR/XR chest 1V portable [id number] IMPRESSION: Overinflation of the lungs consistent with emphysema. No acute abnormalities are seen.
--- NOTE | 2020-03-26 02:12 | CTR_ITS ---
PROCEDURE INFORMATION: Exam: CT Head Without Contrast Exam date and time: 03/26/2020 2:20 AM Age: 79 years old Clinical indication: Altered mental status/memory loss; Confusion or disorientation; Additional info: AMS TECHNIQUE: Imaging protocol: Computed tomography of the head without contrast. Radiation optimization: All CT scans at this facility use at least one of these dose optimization techniques: automated exposure control; mA and/or kV adjustment per patient size (includes targeted exams where dose is matched to clinical indication); or iterative reconstruction. COMPARISON: No relevant prior studies available. RADIATION DOSE METRICS: Total DLP (mGy-cm): 726.04 FINDINGS: Brain: Bilateral basal ganglia calcifications are noted. No hemorrhage. Unremarkable white matter. No mass effect. Cerebral ventricles: No ventriculomegaly. Bones/joints: Unremarkable. No acute fracture. Paranasal sinuses: Bilateral ethmoid and sphenoid sinusitis changes are present. No fluid levels. Mastoid air cells: Visualized mastoid air cells are well aerated. Soft tissues: Unremarkable. CT/CT head wo con* [id number] IMPRESSION: No acute intracranial abnormality. Radiation Dose CTDIVOL = (mGy): DLP = 726.04 (mGy-cm)
--- NOTE | 2020-03-26 02:13 | ECG_ITS ---
[facility] Test Date: 2020-03-26 Pat Name: Dilcia Zimmerman Department: Room: Gender: Female Employee Relations Director: : 1940 Requested By: Callie Doshi Order Number: [id number] Esme MD: Briana Hernandez M.D. Measurements Intervals [place] Rate: 83 P: 75 NM: 139 QRS: -18 QRSD: 90 T: 67 QT: 376 QTc: 442 Interpretive Statements SINUS RHYTHM POSSIBLE LEFT ATRIAL ENLARGEMENT [-0.1mV P WAVE IN V1/V2] INTERPRETATION BASED ON A DEFAULT AGE OF 40 YEARS Compared to ECG 12/05/2019 13:11:16 No significant changes Electronically Signed On 03-26-2020 21:34:31 BOBCAT OPERATOR by Briana Hernandez M.D. [email or web address]
--- NOTE | 2020-03-26 02:23 | ED_ITS ---
HPI - Psych General: Chief Complaint: Psychiatric Symptoms Stated Complaint: HALLUCINATIONS Time Seen by Provider: 03/26/20 02:12 Source: patient and EMS Mode of arrival: EMS Limitations: no limitations History of Present Illness: HPI Narrative: 79-year-old female states she has been having auditory hallucinations over the last month. EMS states she has had police called out there multiple times over the last month. She states she has been hearing voices and has never had this before. She denies any suicidal homicidal thoughts. Patient here is able answer all my questions appropriately. She does know her name where she lives in the year. She lives home alone Associated symptoms: Reports auditory hallucinations Review of Systems Const: Denies: fever(s), chills, body aches or change in appetite Eyes: Denies: blurry vision or eye discomfort ENMT: Denies: throat pain or dental pain Card: Denies: chest pain Resp: Denies: dyspnea GI: Denies: abdominal pain, nausea, vomiting or diarrhea : Denies: dysuria Musc: Denies: neck pain or back pain Skin/Breast: Denies: rash Neuro: Denies: headache(s) Psych: Reports: auditory hallucinations Zain/Lymph: Denies: easy bruising All/Imm: Denies: urticaria PFSH ED PFSH: Medical History Asthma Hepatic cyst Hilar lymphadenopathy Lower back pain Osteoarthritis Osteoporosis Surgical History No history of previous surgery Family History Father CAD (coronary artery disease) Overweight Diabetes Mother Dementia Brother Lung disease Smoker Other Hypertension Social History Smoking and tobacco status: never smoked Alcohol intake: never Other details last substance use: Denies drug use Lives independently: Yes Household members: other Details: She lives alone Housing: House Physical Exam Const: COMMON NORMALS: no acute distress, patient oriented x3 and healthy appearing HENMT: COMMON NORMALS: normocephalic and atraumatic HEAD & SCALP: normocephalic and atraumatic Eye: COMMON NORMALS: Equal, round and reactive pupils present and EOMs intact bilaterally PUPIL: Yes Equal, round and reactive pupils present Neck/C-Spine: COMMON NORMALS: full ROM and supple Chest: COMMONS NORMALS: normal inspection of the chest and normal palpation of entire chest wall Resp: COMMON NORMALS: normal respiratory effort, No retractions, No use of accessory muscles and clear to auscultation bilaterally AUSCULTATION: clear to auscultation bilaterally Cardio: COMMON NORMALS: regular rate, regular rhythm and No murmurs present (Cardio) RATE: regular rate RHYTHM: regular rhythm GI: COMMON NORMALS: Normal to inspection, nondistended, normoactive bowel sounds present, Soft to palpation, non-tender and no masses PALPATION: Yes Soft to palpation Extremity: COMMON NORMALS: normal to inspection and full ROM Neuro: COMMON NORMALS: patient oriented x3, moves all extremities and no focal motor deficits Psych: COMMON NORMALS: mental status grossly normal, Normal thought process present and cooperative THOUGHT PROCESS: Normal thought process present THOUGHT CONTENT: Yes Hallucination(s) present Skin: COMMON NORMALS: no rashes or lesions noted and no wounds GENERAL SKIN EXAM: no rashes or lesions noted MDM - Psych MDM Narrative: Medical decision making narrative: LC presents here with hallucinations originally. Patient did test positive for Covid. She also had a brief period of hypotension and hypoxia. We will have to admit to the MICU at this time. I also spoke to psychiatrist who is consulted. Lab Data: Labs: Lab Results 03/26/20 03/26/20 03/26/20 Range/Units 02:34 02:34 02:34 WBC 4.1 (4.0-10.0) 10^3/ uL RBC 3.95 L (4.1-5.3) 10^6/u L Hgb 13.2 (11.5-15.3) g/dL Hct 40.0 (37.0-47.0) % MCV 101.3 H (81-99) fL MCH 33.4 (28.0-34.0) pg MCHC 33.0 (30.0-36.0) g/dL RDW 12.0 L (12.1-15.1) % Plt Count 179 (130-400) 10^3/c mm MPV 10.2 (7.4-10.4) fL Neut % (Auto) 78.7 % Lymph % (Auto) 12.0 % [place] % (Auto) 7.1 % Eos % (Auto) 1.5 % Baso % (Auto) 0.5 % Neut # (Auto) 3.21 (1.8-7.7) 10^3/u L Lymph # (Auto) 0.5 L (0.8-4.8) 10^3/u L [place] # (Auto) 0.3 (0.2-0.9) 10^3/u L Eos # (Auto) 0.1 (0.0-0.8) 10^3/u L Baso # (Auto) 0.0 (0.0-0.1) 10^3/u L Nucleated RBC % (a uto) 0 % Nucleated RBCs # 0.0 /100WBC Sodium 142 (136-145) mmol/L Potassium 3.7 (3.5-5.1) mmol/L Chloride 106 (98-107) mmol/L Carbon Dioxide 25 (22-29) mmol/L Anion Gap 14.7 (5-19) BUN 11 (8-23) mg/dL Creatinine 0.7 (0.5-0.9) mg/dL GFR Calculation Not Reportable Glucose 159 H (65-115) mg/dL Calculated Osmolal ity 297 H (285-295) mOsm/k g Calcium 9.4 (8.5-10.5) mg/dL Total Bilirubin 1.2 (0.15-1.2) mg/dL AST 17 (0-32) U/L ALT 11 (0-33) U/L Alkaline Phosphata se 75 (35-105) IU/L Total Protein 6.3 L (6.6-8.7) g/dL Albumin 4.0 (3.5-5.2) g/dL Globulin 2.3 (1.3-4.6) g/dL Urine Color Yellow (Yellow) Urine Appearance Hazy A (CLEAR) Urine pH 5.0 (5-7) Ur Specific Gravit y 1.030 (1.005-1.030) Urine Protein 1+ H (Negative) Urine Glucose (UA) Norm (Normal) Urine Ketones 1+ H (Negative) Urine Blood 2+ H (Negative) Urine Nitrate Negative (Negative) Urine Bilirubin Neg (Negative) Urine Urobilinogen 1 H (Negative) mg/dL Ur Leukocyte Dorothea ase Trace H (Negative) Urine RBC 0-4 H (0-2) /hpf Urine WBC 10-15 H (0-5) /hpf Ur Squamous Epith Cells 10-15 H (0-5) /hpf Amorphous Sediment Not Reportable Urine Bacteria 2+ H (NONE) /hpf Urine Mucus 2+ /hpf Salicylates < 0.3 L (3-10) mg/dL Urine Opiates Scre en (Negative) ng/mL Acetaminophen < 5.0 L (10-30) ug/mL Ur Barbiturates Sc reen (Negative) ng/mL Ur Phencyclidine S crn (Negative) ng/mL Ur Amphetamines Sc reen (Negative) ng/mL U Benzodiazepines Scrn (Negative) ng/mL Urine Cocaine Scre en (Negative) ng/mL U Marijuana (THC) Screen (Negative) ng/mL Ethyl Alcohol < 10 (0-10) mg/dL SARS-CoV-2 Ag (Rap id) (Negative) 03/26/20 03/26/20 Range/Units 02:34 03:50 WBC (4.0-10.0) 10^3/ uL RBC (4.1-5.3) 10^6/u L Hgb (11.5-15.3) g/dL Hct (37.0-47.0) % MCV (81-99) fL MCH (28.0-34.0) pg MCHC (30.0-36.0) g/dL RDW (12.1-15.1) % Plt Count (130-400) 10^3/c mm MPV (7.4-10.4) fL Neut % (Auto) % Lymph % (Auto) % [place] % (Auto) % Eos % (Auto) % Baso % (Auto) % Neut # (Auto) (1.8-7.7) 10^3/u L Lymph # (Auto) (0.8-4.8) 10^3/u L [place] # (Auto) (0.2-0.9) 10^3/u L Eos # (Auto) (0.0-0.8) 10^3/u L Baso # (Auto) (0.0-0.1) 10^3/u L Nucleated RBC % (a uto) % Nucleated RBCs # /100WBC Sodium (136-145) mmol/L Potassium (3.5-5.1) mmol/L Chloride (98-107) mmol/L Carbon Dioxide (22-29) mmol/L Anion Gap (5-19) BUN (8-23) mg/dL Creatinine (0.5-0.9) mg/dL GFR Calculation Glucose (65-115) mg/dL Calculated Osmolal ity (285-295) mOsm/k g Calcium (8.5-10.5) mg/dL Total Bilirubin (0.15-1.2) mg/dL AST (0-32) U/L ALT (0-33) U/L Alkaline Phosphata se (35-105) IU/L Total Protein (6.6-8.7) g/dL Albumin (3.5-5.2) g/dL Globulin (1.3-4.6) g/dL Urine Color (Yellow) Urine Appearance (CLEAR) Urine pH (5-7) Ur Specific Gravit y (1.005-1.030) Urine Protein (Negative) Urine Glucose (UA) (Normal) Urine Ketones (Negative) Urine Blood (Negative) Urine Nitrate (Negative) Urine Bilirubin (Negative) Urine Urobilinogen (Negative) mg/dL Ur Leukocyte Dorothea ase (Negative) Urine RBC (0-2) /hpf Urine WBC (0-5) /hpf Ur Squamous Epith Cells (0-5) /hpf Amorphous Sediment Urine Bacteria (NONE) /hpf Urine Mucus /hpf Salicylates (3-10) mg/dL Urine Opiates Scre en Negative (Negative) ng/mL Acetaminophen (10-30) ug/mL Ur Barbiturates Sc reen Negative (Negative) ng/mL Ur Phencyclidine S crn Negative (Negative) ng/mL Ur Amphetamines Sc reen Negative (Negative) ng/mL U Benzodiazepines Scrn Negative (Negative) ng/mL Urine Cocaine Scre en Negative (Negative) ng/mL U Marijuana (THC) Screen Negative (Negative) ng/mL Ethyl Alcohol (0-10) mg/dL SARS-CoV-2 Ag (Rap id) Positive H (Negative) Imaging Data^: CXR: Attestation: I personally reviewed and interpreted this imaging study as follows: My impression: no acute abnormality CT Head: Radiologist's impression: [id number] [address] [address] Scan Report Signed Patient: Dilcia Zimmerman Unit #: [id number] : 1940 Age/Sex: 79 / F ADM Date: 03/26/20 Loc: ER Room/Bed: Attending Dr: Ordering Provider/Ordering MD: Callie Doshi MD Date of Service: 03/26/20 Procedure(s): CT head wo con* [id number] Accession Number(s): [id number] Report Number: [id number] PROCEDURE INFORMATION: Exam: CT Head Without Contrast Exam date and time: 03/26/2020 2:20 AM Age: 79 years old Clinical indication: Altered mental status/memory loss; Confusion or disorientation; Additional info: AMS TECHNIQUE: Imaging protocol: Computed tomography of the head without contrast. Radiation optimization: All CT scans at this facility use at least one of these dose optimization techniques: automated exposure control; mA and/or kV adjustment per patient size (includes targeted exams where dose is matched to clinical indication); or iterative reconstruction. COMPARISON: No relevant prior studies available. RADIATION DOSE METRICS: Total DLP (mGy-cm): 726.04 FINDINGS: Brain: Bilateral basal ganglia calcifications are noted. No hemorrhage. Unremarkable white matter. No mass effect. Cerebral ventricles: No ventriculomegaly. Bones/joints: Unremarkable. No acute fracture. Paranasal sinuses: Bilateral ethmoid and sphenoid sinusitis changes are present. No fluid levels. Mastoid air cells: Visualized mastoid air cells are well aerated. Soft tissues: Unremarkable. CT/CT head wo con* [id number] IMPRESSION: No acute intracranial abnormality. EKG Data^: EKG 1: Attestation: I personally reviewed and interpreted this EKG as follows: EKG interpretation date: 03/26/20 EKG interpretation time: 02:28 Interpretation: nsr hr [address] or t wave abnormalities qrs 90 qtc 415 Discharge Plan Discharge Patient Disposition: Admitted As Inpatient Admit Provider: Sana Romero Clinical Impression: Hallucination, Acute cystitis, COVID-19 Condition: Stable Coding Level of Care Code ED Senior Safety Support Manager for Chg Fwd Exam Comprehensive
[2020-03-26 02:44] LABS: Basophils % 0.5 %; Eosinophils # 0.1 10^3/uL (0.0-0.8); Eosinophils % 1.5 %; Hemoglobin 13.2 g/dL (11.5-15.3); Lymphocytes # 0.5 10^3/uL (0.8-4.8); Mean Corpuscular Hemoglobin 33.4 pg (28.0-34.0); Mean Corpuscular Volume 101.3 fL (81-99); Mean Platelet Volume 10.2 fL (7.4-10.4); Monocytes # 0.3 10^3/uL (0.2-0.9); Monocytes % 7.1 %; Neutrophils # 3.21 10^3/uL (1.8-7.7); Neutrophils % 78.7 %; Nucleated Red Blood Cells % 0 %; Platelet Count 179 10^3/cmm (130-400); Red Blood Count 3.95 10^6/uL (4.1-5.3); White Blood Count 4.1 10^3/uL (4.0-10.0)
[2020-03-26 02:57] LABS: Alanine Aminotransferase 11 U/L (0-33); Alkaline Phosphatase 75 IU/L (35-105); Anion Gap 14.7 (5-19); Aspartate Amino Transferase 17 U/L (0-32); Blood Urea Nitrogen 11 mg/dL (8-23); Calcium 9.4 mg/dL (8.5-10.5); Carbon Dioxide 25 mmol/L (22-29); Chloride 106 mmol/L (98-107); Globulin 2.3 g/dL (1.3-4.6); Glucose 159 mg/dL (65-115); Osmolality Calculated 297 mOsm/kg (285-295); Potassium 3.7 mmol/L (3.5-5.1); Sodium 142 mmol/L (136-145); Total Bilirubin 1.2 mg/dL (0.15-1.2); Total Protein 6.3 g/dL (6.6-8.7)
[2020-03-26 02:58] LABS: Amphetamines Screen Urine Negative (Negative); Barbiturates Screen Urine Negative (Negative); Benzodiazepines Screen Urine Negative (Negative); Cocaine Screen Urine Negative (Negative); Opiate Screen Urine Negative (Negative); PCP Screen Urine Negative (Negative); THC Screen Urine Negative (Negative)
[2020-03-26 03:01] LABS: Urine Appearance Hazy (CLEAR); Urine Color Yellow (Yellow)
[2020-03-26 03:02] LABS: Add Urine Microscopic? YES; Bilirubin Urine Neg (Negative); Blood Urine 2+ (Negative); Glucose Urine UA Norm (Normal); Ketones Urine 1+ (Negative); Leukocyte Esterase Urine Trace (Negative); Nitrate Urine Negative (Negative); Protein Urine 1+ (Negative); Urobilinogen Urine 1 mg/dL (Negative)
[2020-03-26 03:03] LABS: Add Urine Culture? Yes; Bacteria Urine 2+ /hpf; Mucus Urine 2+ /hpf; RBC Urine 0-4 /hpf (0-2)
[2020-03-26 03:08] LABS: Acetaminophen < 5.0 ug/mL (10-30); Alcohol Level < 10 mg/dL (0-10); Salicylate < 0.3 mg/dL (3-10)
[2020-03-26] MEDS: cephALEXin 500 mg Capsule PO (03:21)
[2020-03-26 04:49] LABS: SARS Covid-2 Antigen Positive (Negative)
[2020-03-26] MEDS: sodium chloride 0.9% 1,000 ML 999 ML IV (06:03)
--- NOTE | 2020-03-26 06:10 | P.HP_ITS ---
Providers/Chief Complaint Admitting Physician: Sana Romero MD Primary Care Provider: Kathleen Trejo MD Chief Complaint: HALLUCINATIONS History of Present Illness Dilcia Zimmerman is a 79 year old female with an unclear recent history. The police asked her to come into the emergency room because of frequent hallucinations. According to ER physician they have been out to her house quite frequently lately of the hallucinations. She denied all symptoms when I asked but since arrival here she has been short of breath and coughing. Does not report any fevers. Says she has not been around anybody with Covid. She was actually here to go to a [facility] but Covid testing was positive so hospitalists asked to admit for this reason. Subsequently she started requiring up to 4 L of oxygen by nasal cannula (is not chronically on oxygen) and has also had hypotension necessitating fluids. At the time of my examination she is resting comfortably without any complaints. Review of Systems General: Reports: Other (Review of systems inconsistent, not reliable) Const: Denies: fever(s), chills, change in appetite or other (Denies change in taste or smell) Eyes: Denies: change in vision ENMT: Denies: throat pain, dry mouth or nasal congestion Card: Denies: chest pain, palpitations or edema Resp: Reports: non-productive cough; Denies: dyspnea or productive cough GI: Denies: abdominal pain, nausea, vomiting, diarrhea or constipation : Denies: difficulty voiding Musc: Denies: joint swelling or joint redness Skin/Breast: Denies: rash or pruritus Neuro: Denies: headache(s), numbness in extremities, weakness in extremities or dizziness Psych: Reports: visual hallucinations and auditory hallucinations; Denies: anxiety or depression Zani/Lymph: Denies: easy bruising or easy bleeding Medications/Allergies Allergies Allergy/AdvReac Type Severity Reaction Status Date / Time No Known Allergies Allergy Verified 12/07/19 13:59 Additional Medication Information Patient has not had any medications filled for some time. She reported that her physician retired and it has been difficult to keep up with who she follows with now. PFSH Acute PFSH: Medical History Asthma Hepatic cyst Hilar lymphadenopathy Lower back pain Osteoarthritis Osteoporosis Surgical History No history of previous surgery Family History Father CAD (coronary artery disease) Overweight Diabetes Mother Dementia Brother Lung disease Smoker Other Hypertension Social History Smoking and tobacco status: never smoked Alcohol intake: never Other details last substance use: Denies drug use Lives independently: Yes Household members: other Details: She lives alone Housing: House Vitals/I&O/Wt Last Vital Signs Temp 98.0 F 03/26/20 02:13 Pulse 133 H 03/26/20 06:04 Resp 19 H 03/26/20 06:04 BP 101/64 03/26/20 06:04 Pulse Ox 98 03/26/20 06:04 Weight last 48 hrs Weight 47.174 kg Physical Exam Const: OTHER: Alert, oriented to person, place and some details but otherwise confused, cooperative, thin build HENMT: OTHER: Normocephalic atraumatic, dry mucous membranes Eye: OTHER: Pupils equally round and reactive to light Neck/C-Spine: OTHER: Supple Resp: OTHER: scattered wheezes, no rales or rhonchi, no accessory muscle use noted Cardio: OTHER: regular rate and rhythm, 2/6 systolic murmur GI: OTHER: Abdomen soft, nontender, nondistended with positive bowel sounds : OTHER: Normal external genitalia Extremity: NARRATIVE EXTREMITY EXAM: No cyanosis, clubbing or edema, no acute synovitis Neuro: OTHER: Face symmetric, speech clear, moves all extremities Psych: OTHER: Normal affect, denies current auditory or visual hallucinations Skin: OTHER: Skin dry, no acute rashes noted Data : 03/26/20 02:34 03/26/20 02:34 A&P Assessment and plan (1) Hallucination: Presenting complaint, may have been due to hypoxemia particularly given that she is requiring 4 L of oxygen by nasal cannula presently. She reports she has been present for several months. Status: Acute (2) COVID-19: She denies any symptoms suggestive of Covid but per ER staff has been coughing and is currently requiring 4 L of oxygen by nasal cannula. Chest x-ray is not that remarkable. She does have a history of asthma and has been on Advair and prednisone in the past. Denies any history of smoking Status: Acute (3) Abnormal urinalysis: Suspect contaminated specimen, denies any urinary symptoms Status: Acute Additional A&P Information Inpatient admission Dexamethasone and remdesivir Get further labs as ordered Continue oxygen therapy Fluid bolus was started recently, will continue but need to monitor response to this closely Psychiatry was consulted for hallucinations but we can probably hold off as long as she is cooperative until treatment for Covid, this could certainly be part of the problem here Lovenox for DVT prophylaxis Pepcid for GI prophylaxis Supportive care otherwise Plans were discussed with patient and she was given an opportunity to ask questions Full code currently We will have to see how she is doing in terms of disposition plans as she does live alone Attestations Medical Necessity Statement*: Anticipated stay greater than 2 midnights in a patient requiring oxygen therapy for COVID-19. In addition she has hallucinatio ns and had come to the hospital for geriatric psych evaluation. Coding Level of Care Code Acute Life Skills Coordinator for Gabrielle Turner Diagnoses Hallucination R44.3 COVID-19 U07.1 Abnormal urinalysis R82.90
[2020-03-26] MEDS: remdesivir 200 MG in sodium chloride 0.9% (100 ml) 100 ML 100 MG IV (07:10)
[2020-03-26] MEDS: famotidine 20 mg Tablet PO ×2 (09:57→19:03)
[2020-03-26] MEDS: enoxaparin 40 mg/0.4 mL Syringe SUBCUT (09:57)
[2020-03-26] MEDS: sodium chloride 0.9% 1,000 ML 75 ML IV (09:57)
[2020-03-26] MEDS: dexamethasone 4 mg/mL INJ 6 MG IVP (09:58)
[2020-03-26] MEDS: ascorbic acid 500 mg Tablet 1000 MG PO ×2 (09:58→19:02)
[2020-03-26] MEDS: zinc gluconate 50 mg Tablet PO (09:58)
[2020-03-26 15:11] LABS: INR 1.04 (0.8-1.2)
[2020-03-26 15:12] LABS: Partial Thromboplastin Time 33.9 SECONDS (23.9-36.7)
[2020-03-26 15:13] LABS: Fibrinogen 243 mg/dL (174-498)
[2020-03-26 15:15] LABS: D Dimer 1.87 ug/mIFEU (0-0.59)
[2020-03-26 16:07] LABS: Troponin T (5th) Once 11 ng/L (0-10)
[2020-03-26 16:47] LABS: Coronavirus Test Green County Not Detected
[2020-03-26 17:02] LABS: Lactate (Lactic Acid level) 4.8 mmol/L (0.5-2.2)
--- NOTE | 2020-03-26 17:34 | NUR.SHIFT ---
Physician notified of critical results on patient from lab. Lactic acid 4.8. Awaiting physician response.
--- NOTE | 2020-03-26 17:36 | PC.NURSE ---
Patient requested Daughter Jennifer not to be contacted about patients condition. Especially mentioning covid results. Only transfer her to patient's phone no information to be given by staff. Natalie Andrews phone number [phone] who is a daughter that lives out of state can be updated about patients condition. Charge nurse notified as well as psychotherapist social worker and cardiac care unit nurse.
--- NOTE | 2020-03-26 19:16 | P.PN_ITS ---
Subjective Subjective: Interval history: Chart reviewed, labs noted, found to be COVID-19 positive per rapid antigen test, PCR negative. She is quite pleasant, no complaints currently, reports having had a good day, has been appropriate per nursing staff. VSS, afebrile, weaned to RA this AM and has remained on RA throughout the day. Medications: Reviewed: Yes Medication Review Details: Active Medications Generic Name Dose Route Start Last Admin Trade Name Freq PRN Reason Stop Dose Admin Acetaminophen 650 mg 03/26/20 07:55 Acetaminophen 32 5 Mg Tablet PO Q6H PRN Mild/Mod Pain Or Temp >/= 101 Albuterol Sulfate 2 puff 03/26/20 07:55 Albuterol 8 Gm M di INHALATION Q4H.RESPIRATORY P RN SHORTNESS OF JAN TH Ascorbic Acid 1,000 mg 03/26/20 09:00 03/26/20 19:02 Ascorbic Acid 50 0 Mg Tablet PO 1,000 mg BID OLI Administration Bisacodyl 10 mg 03/26/20 07:55 Bisacodyl 5 Mg T ablet PO DAILY PRN CONSTIPATION Dexamethasone 6 mg 03/26/20 08:30 03/26/20 09:58 Dexamethasone 4 Mg/Ml Inj IVP 6 mg Q24H OLI Administration Enoxaparin Sodium 40 mg 03/26/20 08:30 03/26/20 09:57 Enoxaparin 40 Mg /0.4 Ml Syringe SUBCUT 40 mg Q24H OLI Administration Famotidine 20 mg 03/26/20 09:00 03/26/20 19:03 Famotidine 20 Mg Tablet PO 20 mg BID OLI Administration Remdesivir 100 mg/ Sodium 100 mls @ 100 mls /hr 03/27/20 06:00 Chloride IV 03/30/20 06:59 Q24H OLI Sodium Chloride 1,000 mls @ 75 ml s/hr 03/26/20 07:55 03/26/20 09:57 Sodium Chloride 0.9% IV 03/26/20 21:14 75 mls/hr .[id number] OLI Administration Ondansetron HCl 4 mg 03/26/20 07:55 Ondansetron 2 Mg /Ml Sdv 2 Ml IVP Q8H PRN vomiting, or N/V if npo Vitamin D 2,000 unit 03/26/20 09:00 03/26/20 09:59 Cholecalciferol (Vitamin D3) 1,000 Unit Tablet PO Not Given DAILY OLI Zinc Gluconate 50 mg 03/26/20 09:00 03/26/20 09:58 Zinc Gluconate 5 0 Mg Tablet PO 50 mg DAILY OLI Administration No Known Allergies Allergy (Verified 12/07/19 13:59) Vitals/I&O/Wt Last Vital Signs Temp 98.4 F 03/26/20 16:00 Pulse 72 03/26/20 16:00 Resp 16 03/26/20 16:00 BP 113/68 03/26/20 16:00 Pulse Ox 95 03/26/20 16:00 03/26/20 03/26/20 03/26/20 06:59 14:59 22:59 Intake Total 1000 / 1000 580 / 580 Output Total 200 / 200 Balance 1000 / 1000 380 / 380 Weight last 48 hrs Weight 47.174 kg Physical Exam Const: COMMON NORMALS: no acute distress, patient oriented x3 and alert GENERAL APPEARANCE: cooperative, comfortable and frail appearing NUTRITIONAL APPEARANCE: thin ORIENTATION/CONSCIOUSNESS: Yes awake HENMT: COMMON NORMALS: normocephalic, atraumatic, hearing grossly normal bilaterally and moist oral mucous membranes HEAD & SCALP: normocephalic and atraumatic Eye: COMMON NORMALS: Equal, round and reactive pupils present, EOMs intact bilaterally and conjunctivae normal CONJUNCTIVA: Yes conjunctivae normal PUPIL: Yes Equal, round and reactive pupils present Neck/C-Spine: COMMON NORMALS: full ROM GENERAL: Yes normal visual inspection and Yes trachea midline Resp: COMMON NORMALS: normal respiratory effort, No retractions, No use of accessory muscles and clear to auscultation bilaterally EFFORT & INSPECTION: Yes able to speak in complete sentences, Yes symmetric chest movement and No tachypneic AUSCULTATION: clear to auscultation bilaterally OTHER: -on RA Cardio: COMMON NORMALS: regular rate, regular rhythm, S1 normal heart sound present, S2 normal heart sound present and No murmurs present (Cardio) RATE: regular rate RHYTHM: regular rhythm HEART SOUNDS: S1 normal heart sound present and S2 normal heart sound present GI: COMMON NORMALS: Normal to inspection, nondistended, normoactive bowel sounds present, Soft to palpation and non-tender PALPATION: Yes Soft to palpation Extremity: COMMON NORMALS: normal to inspection, full ROM and no clubbing, cyanosis or edema; negative for no pedal edema Neuro: COMMON NORMALS: patient oriented x3, moves all extremities, no focal motor deficits, no sensory deficits noted and gait normal SENSORIUM/ORIENTATION: Yes alert Psych: COMMON NORMALS: mental status grossly normal, Normal thought process present, cooperative, normal affect and speech normal SPEECH: Yes normal speech THOUGHT PROCESS: Normal thought process present Skin: COMMON NORMALS: no rashes or lesions noted, no jaundice, no petechiae and no mottling GENERAL SKIN EXAM: no rashes or lesions noted Data : 03/26/20 02:34 03/26/20 02:34 Micro: Microbiology 03/26/20 14:25 Blood Culture - Preliminary Blood SPECIMEN COLLECTED 03/26/20 14:25 Blood Culture - Preliminary Blood SPECIMEN COLLECTED A&P Assessment and plan (1) Abnormal urinalysis: -noted UA with some evidence of contamination -no urinary complaints currently so not on antibiotics -f/u urine cx Status: Acute (2) Hallucination: -had presented with hallucinations, none observed today -unclear etiology but will continue to monitor -will re-assess need for psychiatry as needed -CT head negative for acute changes -fall precautions -UDS, alcohol screen negative Status: Acute (3) COVID-19: -rapid COVID-19 positive, PCR negative so likely false positive -not really symptomatic, very briefly required supplemental oxygen, has been on RA since earlier this AM -will d/c isolation precautions and move out of COVID unit -d/c remdesevir and steroids -hypotension, improved BP with fluids, continue IVF for now, continue to monitor vital signs -lactic acidosis, elevated D-dimer, r/o DVT, PE especially due to initial need for oxygen -CXR with reported hyperinflation Status: Acute Additional A&P Information -hx of asthma; continue breathing treatments as needed -regular diet as tolerated -up with assistance -GI ppx with famotidine -DVT ppx with lovenox -Dispo: pending clinical improvement -Code status: FULL code Attestations Medical Necessity Statement*: Patient requires hospitalization for continued monitoring, r/o DVT and PE given elevated D-dimer, continued monitoring of hemodynamic and respiratory status. Time Spent in Patient Care: 16 - 35 minutes (>than 50% of time spent in counselling and/or direct pt care on unit) . Coding Level of Care Code Acute Human Relations Professor for Chg Fwd Diagnoses Abnormal urinalysis R82.90 Hallucination R44.3 COVID-19 U07.1
--- NOTE | 2020-03-26 19:27 | CTR_ITS ---
PROCEDURE INFORMATION: Exam: CT Angiography Chest With Contrast Exam date and time: 03/26/2020 9:26 PM Age: 79 years old Clinical indication: Shortness of breath; Additional info: Elevated d-dimer, AMS TECHNIQUE: Imaging protocol: Computed tomographic angiography of the chest with intravenous contrast. 3D rendering (Not supervised by radiologist): MIP and/or 3D reconstructed images were created by the technologist. Radiation optimization: All CT scans at this facility use at least one of these dose optimization techniques: automated exposure control; mA and/or kV adjustment per patient size (includes targeted exams where dose is matched to clinical indication); or iterative reconstruction. Contrast material: [id number]; Contrast volume: 78 ml; Contrast route: INTRAVENOUS (IV); COMPARISON: CT angio chest PE protcl [id number] 06/12/2019 1:49 PM RADIATION DOSE METRICS: Total DLP (mGy-cm): 328.32 FINDINGS: Pulmonary arteries: Pulmonary arteries are well opacified. Pulmonary arteries are normal in caliber. No filling defects are demonstrated. No evidence of pulmonary embolism. Aorta: Thoracic aorta is mildly atherosclerotic. No aortic dissection. Lungs: Mild bronchial wall thickening bilaterally, particularly in the lower lobes. There is mild volume loss in the left lower lobe. Mild bronchiectasis noted in the anteromedial portion of the left upper lobe, series 2, image 172 through 191. Mild central bronchiectasis also noted in the right upper lobe. Pleural space: No pneumothorax. No pleural effusion. Heart: Mild cardiomegaly. No pericardial effusion. Mediastinal space: Esophagus appears mildly thickened, suggesting nonspecific esophagitis. Lymph nodes: No pathologically enlarged lymph nodes are demonstrated. Liver: 1.5 cm simple appearing cyst in the left lobe of the liver. Bones/joints: Mild degenerative spine changes. No acute osseous abnormality. Soft tissues: Unremarkable. CT/CT angio chest PE protcl [id number] IMPRESSION: 1. No evidence of pulmonary embolism. 2. No evidence of aortic dissection. 3. Mild bronchial wall thickening bilaterally, particularly in the lower lobes. There is mild volume loss in the left lower lobe. Findings are suggestive of nonspecific lower respiratory infection. No consolidative infiltrate noted. 4. Esophagus appears mildly thickened, suggesting nonspecific esophagitis. 5. Mild cardiomegaly. No pericardial effusion. 6. Findings are similar to the previous study of 06/12/2019. Radiation Dose CTDIVOL = (mGy): DLP = 328.32 (mGy-cm)
[2020-03-26] MEDS: iohexol 350 mg/mL 100 mL Btl IV (23:39)
[2020-03-27] VITALS (7 sets, daily range): BP systolic 104–134; BP diastolic 60–81; PULSE 63–84; RESP 15–21; TEMP 36.3–37.3; O2SAT 92–94
[2020-03-27 00:54] LABS: Procalcitonin 0.03 ng/mL (0-0.5)
[2020-03-27 01:15] LABS: C Reactive Protein 0.3 mg/L (0.0-4.9); Creatine Phosphokinase 109 U/L (26-192); Ferritin 63 ng/mL (15-150); Lactate Dehydrogenase 184 U/L (135-214); Magnesium 1.8 mg/dL (1.7-2.3)
[2020-03-27 02:44] LABS: NT Pro B Type Natriuretic Pept 183 pg/mL (0-450)
[2020-03-27 05:53] LABS: D Dimer 2.25 ug/mIFEU (0-0.59)
[2020-03-27] MEDS: ascorbic acid 500 mg Tablet 1000 MG PO ×2 (08:37→17:21)
[2020-03-27] MEDS: zinc gluconate 50 mg Tablet PO (08:37)
[2020-03-27] MEDS: famotidine 20 mg Tablet PO ×2 (08:37→17:21)
[2020-03-27] MEDS: cholecalciferol (vitamin D3) 1,000 unit Tablet 2000 UNIT PO (08:37)
--- NOTE | 2020-03-27 09:41 | PC.CHAP ---
Pastoral Care Encounter/Spiritual Assessment Type of Contact [] Declined general forecaster visit [] Patient/Family/Request visit [] Outpatient visit [] Follow-up visit [] Physician referral [] Code/Alert [x] Routine visit [] Staff referral [] Actively dying [] Patient sleeping [] Family support [] [] Out of room [] Palliative care [] [] Receiving care in room [] Pre-surgical visit [] Trauma [] Long length of stay [] ICU visit [] Other: Relational/Emotional Strength [] Patient feels connected with others/family/visitors/staff [] Distress [] Loneliness/isolation [] Abandonment Spirituality of Patient [x] Person of Merary [] Attends Rastafari of their Merary [x] Believes in Prayer [] Reads Bible or Pentecostalism materials [] There are Spiritual issues to be addressed Strategic Sourcing Specialist Interventions [x] Prayer [] Active listening [] Non-anxious presence [] Spiritual/emotional support [] Crisis/trauma care [] Spiritual counseling [] Bereavement support [] Provided bereavement packet [] Provided Bible/devotional materials [] Provided toy/stuffed animal, coloring book to patient or family member [] Provided Communion [] Anointing/[place] [] Salvation [] Completed spiritual assessment [] Other: Impact on Illness or Injury [] Angry [] Fearful [] Anxious [] Often cries [] Exhaustion [] Unable to work [] Unable to attend adventism [] Unable to walk/stand [] Unable to read [] Unable to drive [] Unable to eat/drink [] Unable to sleep [] Unable to be with family [] Patient intubated [] Other: Summary Time spent with patient 10 min
--- NOTE | 2020-03-27 12:36 | PC.RESP ---
Pulmonary Rehab information sent to patient.
--- NOTE | 2020-03-27 19:27 | USCV_ITS ---
Erasmo Dilcia Age: 79 Gender: F : 1940 Exam Date: 03/27/2020 16:48 Ordering Phys: Kelsey Mayorga MD Technologist: Richard Bermudez Exam Location: [facility] [place] Indication: ELEVATED D-DIMER HISTORY: Lower extremity swelling. PROCEDURES: Venous duplex imaging was performed in bilateral lower extremities. The following venous structures were evaluated: common femoral vein, profunda vein, proximal portion of the greater saphenous vein, superficial femoral vein, and the popliteal vein. In addition, the posterior tibial and peroneal trunk were evaluated. FINDINGS: Normal 2-D Doppler and augmentation and compressibility throughout the lower extremity venous structures. Additional imaging through the proximal calf veins also reveals no thrombus. Limited evaluation of the greater saphenous vein is patent with no thrombus.. CONCLUSIONS No evidence of right lower extremity DVT. No evidence of left lower extremity DVT. Popliteal cyst measuring 2.5 x 3.3 x 1,1cm Eber Singleton MD (Electronically Signed) Final Date: 28 March 2020 17:57 S
--- NOTE | 2020-03-27 20:30 | P.PN_ITS ---
Subjective Subjective: Interval history: Patient sitting up in bed, dressed and states she is ready to go home, she has her car here and will drive herself. Seen wandering in the hallway confused a little while later, stating she was trying to get home. Venous duplex pending. VSS, remains on RA. Medications: Reviewed: Yes Medication Review Details: Active Medications Generic Name Dose Route Start Last Admin Trade Name Freq PRN Reason Stop Dose Admin Acetaminophen 650 mg 03/26/20 07:55 Acetaminophen 32 5 Mg Tablet PO Q6H PRN Mild/Mod Pain Or Temp >/= 101 Albuterol Sulfate 2 puff 03/26/20 07:55 Albuterol 8 Gm M di INHALATION Q4H.RESPIRATORY P RN SHORTNESS OF JAN TH Ascorbic Acid 1,000 mg 03/26/20 09:00 03/27/20 17:21 Ascorbic Acid 50 0 Mg Tablet PO 1,000 mg BID OLI Administration Bisacodyl 10 mg 03/26/20 07:55 Bisacodyl 5 Mg T ablet PO DAILY PRN CONSTIPATION Enoxaparin Sodium 40 mg 03/26/20 08:30 03/27/20 08:45 Enoxaparin 40 Mg /0.4 Ml Syringe SUBCUT Not Given Q24H OLI Famotidine 20 mg 03/26/20 09:00 03/27/20 17:21 Famotidine 20 Mg Tablet PO 20 mg BID OLI Administration Ondansetron HCl 4 mg 03/26/20 07:55 Ondansetron 2 Mg /Ml Sdv 2 Ml IVP Q8H PRN vomiting, or N/V if npo Vitamin D 2,000 unit 03/26/20 09:00 03/27/20 08:37 Cholecalciferol (Vitamin D3) 1,000 Unit Tablet PO 2,000 unit DAILY OLI Administration Zinc Gluconate 50 mg 03/26/20 09:00 03/27/20 08:37 Zinc Gluconate 5 0 Mg Tablet PO 50 mg DAILY OLI Administration No Known Allergies Allergy (Verified 12/07/19 13:59) Vitals/I&O/Wt Last Vital Signs Temp 99.1 F 03/27/20 19:26 Pulse 78 03/27/20 19:26 Resp 21 H 03/27/20 19:26 BP 130/81 03/27/20 19:26 Pulse Ox 94 03/27/20 19:26 03/27/20 03/27/20 03/27/20 06:59 14:59 22:59 Intake Total 480 / 480 Balance 480 / 480 Weight last 48 hrs Weight 46.901 kg Weight 47.174 kg Physical Exam Const: COMMON NORMALS: no acute distress and alert GENERAL APPEARANCE: cooperative, comfortable and frail appearing NUTRITIONAL APPEARANCE: thin ORIENTATION/CONSCIOUSNESS: Yes awake HENMT: COMMON NORMALS: normocephalic, atraumatic, hearing grossly normal bilaterally and moist oral mucous membranes HEAD & SCALP: normocephalic and atraumatic Eye: COMMON NORMALS: Equal, round and reactive pupils present, EOMs intact bilaterally and conjunctivae normal CONJUNCTIVA: Yes conjunctivae normal PUPIL: Yes Equal, round and reactive pupils present Neck/C-Spine: COMMON NORMALS: full ROM GENERAL: Yes normal visual inspection and Yes trachea midline Resp: COMMON NORMALS: normal respiratory effort, No retractions, No use of ac cessory muscles and clear to auscultation bilaterally EFFORT & INSPECTION: Yes able to speak in complete sentences, Yes symmetric chest movement and No tachypneic AUSCULTATION: clear to auscultation bilaterally OTHER: -on RA Cardio: COMMON NORMALS: regular rate, regular rhythm, S1 normal heart sound present, S2 normal heart sound present and No murmurs present (Cardio) RATE: regular rate RHYTHM: regular rhythm HEART SOUNDS: S1 normal heart sound present and S2 normal heart sound present GI: COMMON NORMALS: Normal to inspection, nondistended, normoactive bowel sounds present, Soft to palpation and non-tender PALPATION: Yes Soft to palpation Extremity: COMMON NORMALS: normal to inspection, full ROM and no clubbing, cyanosis or edema; negative for no pedal edema Neuro: COMMON NORMALS: moves all extremities, no focal motor deficits, no sensory deficits noted and gait normal SENSORIUM/ORIENTATION: Yes alert and Yes Orientation impaired Psych: COMMON NORMALS: mental status grossly normal, Normal thought process pr esent, cooperative, normal affect and speech normal SPEECH: Yes normal speech THOUGHT PROCESS: Normal thought process present INSIGHT: Limited insight present (Psych) Skin: COMMON NORMALS: no rashes or lesions noted, no jaundice, no petechiae and no mottling GENERAL SKIN EXAM: no rashes or lesions noted Data : 03/26/20 02:34 03/26/20 02:34 Micro: Microbiology 03/26/20 14:25 Blood Culture - Preliminary Blood NEGATIVE TO DATE 03/26/20 14:25 Blood Culture - Preliminary Blood NEGATIVE TO DATE 03/26/20 02:34 Urine Culture - Preliminary Urine,Clean Catch A&P Assessment and plan (1) Abnormal urinalysis: -noted UA with some evidence of contamination -no urinary complaints currently -urine cx: contaminated -with noted confusion today, will start on empiric antibiotics Status: Acute (2) Hallucination: -had presented with hallucinations, none observed today -unclear etiology but will continue to monitor -will re-assess need for psychiatry as needed -CT head negative for acute changes -fall precautions -UDS, alcohol screen negative Status: Acute (3) COVID-19: -rapid COVID-19 positive, PCR negative so likely false positive -not really symptomatic, very briefly required supplemental oxygen, has been on RA since yesterday -will d/c isolation precautions and move out of COVID unit -d/c remdesevir and steroids -hypotension, improved BP with fluids, continue IVF for now, continue to monitor vital signs -lactic acidosis, elevated D-dimer, r/o DVT, PE especially due to initial need for oxygen. Lactate normalized -CXR with reported hyperinflation Status: Acute Additional A&P Information -hx of asthma; continue breathing treatments as needed -regular diet as tolerated -up with assistance -GI ppx with famotidine -DVT ppx with lovenox -Dispo: pending clinical improvement, may need placement -Code status: FULL code Attestations Medical Necessity Statement*: Patient requires hospitalization for continued monitoring of mental status, empiric treatment of UTI, pending appropriate disposition. Time Spent in Patient Care: 16 - 35 minutes (>than 50% of time spent in counselling and/or direct pt care on unit) . Coding Level of Care Code Acute Automotive Wholesale Parts Advisor for Gabrielle Turner Diagnoses Abnormal urinalysis R82.90 Hallucination R44.3 COVID-19 U07.1
[2020-03-27] MEDS: cefTRIAXone 1,000 MG in sodium chloride 0.9% (plus) 50 ML 100 MG IV (21:03)
[2020-03-28] VITALS (9 sets, daily range): BP systolic 98–135; BP diastolic 58–81; PULSE 64–102; RESP 15–20; TEMP 36.3–37.1; O2SAT 91–95
[2020-03-28] MEDS: ascorbic acid 500 mg Tablet 1000 MG PO ×2 (08:43→17:40)
[2020-03-28] MEDS: cholecalciferol (vitamin D3) 1,000 unit Tablet 2000 UNIT PO (08:43)
[2020-03-28] MEDS: zinc gluconate 50 mg Tablet PO (08:44)
[2020-03-28] MEDS: enoxaparin 40 mg/0.4 mL Syringe SUBCUT (08:44)
[2020-03-28] MEDS: famotidine 20 mg Tablet PO ×2 (08:44→17:40)
--- NOTE | 2020-03-28 09:48 | PC.NURSE ---
pt tearful and expressing concern with family members stealing items from house while pt is gone. pt states wants to leave so pt can check house and possession. attempted to comfort and calm pt and reassured pt needs the care she is receiving
--- NOTE | 2020-03-28 12:38 | P.PN_ITS ---
Subjective Subjective: Interval history: Patient is alert awake and oriented today, able to have an extended conversation, she is able to tell me correctly her name, age, date of , where she lives. Correctly states that she lives on the same property as her daughter and grandson and they check on her frequently. She does not cook very often and often gets her meals from the local deli and tries to eat well. She careful taking the steps in her house, avoids putting any thrills or rubs to avoid slipping or falling. Acknowledges that she may have some word finding difficulty occasionally but has been assured by her primary care physician these are to be expected with her age. At first she told me that she drove to the hospital in her car may be in the parking lot, then however corrected to say that that may have been the time prior and she is not entirely certain how she came to the hospital. Patient has considered assisted living facilities in the past, however she is not able to afford them. All of the above information was verified with her daughter Jennifer and is noted to be correct. Medications: Reviewed: Yes Vitals/I&O/Wt Last Vital Signs Temp 97.6 F 03/28/20 11:41 Pulse 83 03/28/20 11:41 Resp 16 03/28/20 11:41 BP 135/81 03/28/20 11:41 Pulse Ox 91 03/28/20 11:41 03/27/20 03/28/20 03/28/20 22:59 06:59 14:59 Intake Total 240 / 720 240 / 240 Balance 240 / 720 240 / 240 Weight last 48 hrs Weight 46.04 kg Weight 46.901 kg Physical Exam Narrative: EXAM NARRATIVE: GEN: Awake, alert and oriented, no acute distress CVS: S1S2 N RS: CTA B/L Abd: Soft, nt/nd , bs+ CREDIT ANALYSIS MANAGER: no focal neuro deficits Data : 03/26/20 02:34 03/26/20 02:34 Micro: Microbiology 03/26/20 02:34 Urine Culture - Final Urine,Clean Catch 03/26/20 14:25 Blood Culture - Preliminary Blood NEGATIVE TO DATE 03/26/20 14:25 Blood Culture - Preliminary Blood NEGATIVE TO DATE A&P Assessment and plan (1) Abnormal urinalysis: -noted UA with some evidence of contamination -no urinary complaints currently -urine cx: contaminated -At this present time she is alert awake and oriented, uncertain if this is a waxing waning course with some cognitive impairment versus improvement after starting the antibiotics. Will complete an empiric course. Status: Acute (2) Hallucination: -had presented with hallucinations, none observed over the last 48 hours. -unclear etiology but will continue to monitor -At this time patient is completely alert awake oriented, able to have a lucid conversation with me which is meaningful and in context. She has some intermittent words that she forgets, however does not appear unexpected for age and known mild cognitive impairment in the past. -CT head negative for acute changes -fall precautions -UDS, alcohol screen negative Status: Acute (3) COVID-19: -rapid COVID-19 positive, PCR negative so likely false positive antigen test -No evidence of PE on CTA of the chest. No evidence of any pneumonia. There is nonspecific bronchial wall thickening bilaterally in the lower lobes. Patient denies any respiratory complaints at this time, saturating well on room air. Status: Acute Additional A&P Information -hx of asthma; continue breathing treatments as needed -regular diet as tolerated -up with assistance -GI ppx with famotidine -DVT ppx with lovenox -Dispo: Patient has had improved mental status during the course of admission, likely had delirium on presentation which is now resolved. May have been related to an underlying UTI. Patient is now back to baseline. This is confirmed with daughter Jennifer. At this time plan is for patient to return home tomorrow under the care of her daughter and grandson. The latter to live on the same property as the patient and can check in on her multiple times a day. Patient and daughter are both comfortable with this plan and agreeable for the patient to come home. Daughter states that if she notices further cognitive impairment she will move her mother into the same mobile home as herself to keep an even closer eye on her. -Code status: FULL code Attestations Medical Necessity Statement*: Improved cognitive function today, plan discharge in the upcoming 24 hours. Coding Level of Care Code Acute Accounting Machine Servicer for Gabrielle Turner Diagnoses Abnormal urinalysis R82.90 Hallucination R44.3 COVID-19 U07.1
[2020-03-28] MEDS: cefTRIAXone 1,000 MG in sodium chloride 0.9% (plus) 50 ML 100 MG IV (21:49)
[2020-03-29 04:00] VITALS: BP 113/68; PULSE 65; RESP 14; TEMP 36.8; O2SAT 96
--- NOTE | 2020-03-29 06:26 | PM.DCS ---
Discharge Providers Date of Admission: 03/26/20 05:29 Date of Discharge: March 29, 2020 Attending Provider at Admission: Sana Romero MD Attending Provider at Discharge: Lorena Tamayo MD Primary Care Provider: Kathleen Trejo MD Diagnoses at Discharge Discharge Diagnosis (1) Abnormal urinalysis: Status: Acute (2) Hallucination: Status: Acute Other Information Additional DC diagnoses/information: Patient is a 79-year-old female with a past medical history of asthma, osteoarthritis who presented to the hospital for admission on March 26, 2020 after being sent by the police due to reported fever and hallucinations. According to the ER physician believes has been out of her house quite frequently because of hallucinations. Her daughter described these episodes as seeing people outside the house and being slightly paranoid that they were out to harm her. However daughter states that upon being reoriented and reassured she does understand that this is not real. Initially upon presentation patient had tested positive for the Covid antigen on a rapid test, was noted to be requiring up to 4 L/min of oxygen by nasal cannula which was new for her and also had transient hypotension, overall raising concern for Covid pneumonia. She was started on treatment with dexamethasone and remdesivir. Overall picture was thought to be consistent with delirium. She was also noted to have sterile pyuria. During the course of admission between March 26 to March 29 there were no further episodes of hallucination. Subsequently a Covid PCR returned negative and patient did not have any other signs or symptoms consistent with Covid pneumonia therefore the initial antigen test was thought to be a false positive. Remdesivir and steroids were discontinued and patient was moved out of the Covid unit on March 26, 2020. She was also able to quickly come off of oxygen and has remained on room air since March 26. CTA of the chest was performed to rule out PE and was negative for the same. It did show some nonspecific possible bronchitis and with hyperinflation, asthma versus COPD could not be excluded. There was no consolidation or signs of viral pneumonitis otherwise. Due to possibility of a UTI contributing to delirium on admission, and concern for episodic confusion she was treated with an empiric course of antibiotics which is ceftriaxone 1 g IV every 24. Initially she was planned to undergo a psychiatry consult, however due to no other noted hallucinations and overall mild cognitive impairment which was not inconsistent with her age, this was eventually deferred. She has remained alert awake and oriented all through the admission, able to have an extended conversation and context. She was able to correctly state her address, her daughter's name grandson's name and tell me that they live on the same property and check on her frequently. She was able to additionally tell me the name of the daily where she gets her meals, she does not cook very often. She has put out all shrugs and throws from her house so she does not fall. Is careful getting in and out of the bathtub and while climbing stairs. All of the above information was reported to be correct by her daughter Jennifer. Overall patient's discharge plan was to return home with her daughter. Daughter and grandson live on the same property and take care of her daily needs and are able to check in on her multiple times a day. Overall this was felt to be a safe discharge plan and patient was discharged in stable condition. Reason for Visit Reason for Visit: HALLUCINATIONS Physical Exam Narrative: EXAM NARRATIVE: GEN: Awake, alert and oriented, no acute distress CVS: S1S2 N RS: CTA B/L Abd: Soft, nt/nd , bs+ WOOD PLANER: no focal neuro deficits Discharge Data Data Completed and Pending: Completed Studies During Hospitalization Category Date Time Status CT angio chest PE protcl [id number] Rout ine Cat Scan 03/26/20 19:[address] head wo con* 7 0450 Urgent Cat Scan 03/26/20 02:12 Completed XR chest 1V denis ble [id number] Urgent Exams 03/26/20 02:12 [place] [id number] Routin e Ultrasound 03/27/20 19:27 Completed Pending at discharge Category Date Time Status Blood Culture Rou blanca [facility] 03/26/20 14:25 Results Urine Culture Sta t Lab 03/26/20 05:32 Ordered Vitals: Last Vital Signs Temp 98.2 F 03/29/20 04:00 Pulse 65 03/29/20 04:00 Resp 14 03/29/20 04:00 BP 113/68 03/29/20 04:00 Pulse Ox 96 03/29/20 04:00 Discharge Plan Discharge Patient Disposition: Home Condition: Stable Prescriptions: No Action No Known Home Medications RF: 0 Discharge Orders: Discharge Order (Routine); Ordered 03/29/20 Ordered By: Lorena Tamayo Referrals: Kathleen Trejo MD [Primary Care Provider] - 04/04/20 1:30 pm Discharge Diet: Usual diet Discharge Activity: Resume usual activity Patient Instructions: Urinary Tract Infection in Women (GEN) Discharge Attestations Time Spent in Discharge Care*: greater than 30 min Specific Discharge Activities: educating patient, educating and/or supporting family/caregiver, discussing with nurse case management/social workers/dc planners, documenting/other paperwork and evaluating patient/reviewing data Quality Metrics Clinical Quality Measures During this hospital stay, did patient experience: None Coding Level of Care Code Acute [employer] Dynamics Ax Developer for Chg Fwd Diagnoses Abnormal urinalysis R82.90 Hallucination R44.3
[2020-03-29 06:59] VITALS: BP 113/70; PULSE 62; RESP 15; TEMP 36.4; O2SAT 94
[2020-03-29 08:00] VITALS: BP 113/70; PULSE 62; RESP 15; TEMP 36.4
[2020-03-29] MEDS: ascorbic acid 500 mg Tablet 1000 MG PO (08:40)
[2020-03-29] MEDS: famotidine 20 mg Tablet PO (08:40)
[2020-03-29] MEDS: cefTRIAXone 1,000 MG in sodium chloride 0.9% (plus) 50 ML 100 MG IV (08:41)
[2020-03-29] MEDS: zinc gluconate 50 mg Tablet PO (08:41)
[2020-03-29] MEDS: enoxaparin 40 mg/0.4 mL Syringe SUBCUT (08:41)
[2020-03-29] MEDS: cholecalciferol (vitamin D3) 1,000 unit Tablet 2000 UNIT PO (08:41)
--- NOTE | 2020-03-29 09:40 | PC.NURSE ---
Attempted to call Jennifer Tierney, daughter to notify of discharge, unable to reach. Will attempt after lunchtime per doctor daughter will not be awake until after lunch.
--- NOTE | 2020-03-29 10:06 | PC.SOCIAL ---
IMM Update Pg.2 of IMM updated and reviewed with patient , who verbalized understanding. Copy provided.
[2020-03-29 11:44] VITALS: BP 96/57; PULSE 86; RESP 16; TEMP 36.4; O2SAT 95
[2020-03-29 12:00] VITALS: BP 96/57; PULSE 86; RESP 16; TEMP 36.4
--- NOTE | 2020-03-29 12:19 | PC.NURSE ---
this nurse got ahold of Jennifer Tierney patients daughter, notified of discharge and told this nurse her son will come pick her up.
[2020-03-29 13:10] VITALS: BP 96/57; PULSE 86; RESP 16; TEMP 36.4
--- NOTE | 2020-03-29 13:10 | PC.NURSE ---
discharge instructions provided to patient and grandson, denies further questions or concerns.
== END 2020-03-29 13:11 | disposition home or self-care (01) | DRG 690 ==
LOC: ER 05:31 → ICU 07:03 → MEDSURG 09:01
PROVIDERS: Family Medicine; Admitting Provider Hospitalist; Emergency Provider Emergency Medicine; PCP Family Medicine; Visit Provider Student in an Organized Health Care Education/Training Program
DX: N39.0 Urinary tract infection, site not specified (principal); E87.2 Acidosis; F05 Delirium due to known physiological condition; I95.9 Hypotension, unspecified; Z91.14 Patient's other noncompliance with medication regimen; J45.909 Unspecified asthma, uncomplicated; K76.89 Other specified diseases of liver; R59.0 Localized enlarged lymph nodes; M54.5 Low back pain; M19.90 Unspecified osteoarthritis, unspecified site; M81.0 Age-related osteoporosis without current pathological fracture; M71.20 Synovial cyst of popliteal space [Baker], unspecified knee
CPT/HCPCS: 12345; 36415; 70450; 71045; 71275; 80053; 80306; 80307; 81001; 82550; 82728; 83605; 83615; 83735; 83880; 84145; 84484; 85025; 85378; 85384; 85610; 85730; 86140; 87040; 87086; 87426; 87635; 93005; 93970; 96372; 99283; J0696; J1100; J1650; J7030; Q9967

== ENCOUNTER 2020-05-21 19:23 | Emergency (ER) | payer MEDICARE, OTHER, SELFPAY ==
[2020-05-21 19:35] VITALS: BP 104/70; PULSE 91; RESP 14; TEMP 36.3; O2SAT 94; BMI 18.3
--- NOTE | 2020-05-21 19:55 | ED_ITS ---
HPI - Altered Mental Status General: Chief Complaint: Altered Mental Status Stated Complaint: hallucinations/visual Time Seen by Provider: 05/21/20 19:34 Source: patient Mode of arrival: ambulatory Limitations: no limitations History of Present Illness: HPI narrative: 79-year-old female states she has been having some hallucinations over the last 2 to 3 months with a getting worse over the last few weeks. She states at night she hears things. Patient has no altered mental status. Patient is able answer all my questions appropriately here in is ANO x4. She denies any headache or fever. She denies any suicidal or homicidal ideations. Associated symptoms: Reports auditory hallucinations and visual hallucinations; Deny depression Review of Systems Const: Denies: fever(s), chills, body aches or change in appetite Eyes: Denies: blurry vision or eye discomfort ENMT: Denies: throat pain or dental pain Card: Denies: chest pain Resp: Denies: dyspnea GI: Denies: abdominal pain, nausea, vomiting or diarrhea : Denies: dysuria Musc: Denies: neck pain or back pain Skin/Breast: Denies: rash Neuro: Denies: headache(s) Psych: Reports: visual hallucinations and auditory hallucinations; Denies: depression Zain/Lymph: Denies: easy bruising All/Imm: Denies: urticaria PFSH ED PFSH: Medical History Asthma Hepatic cyst Hilar lymphadenopathy Lower back pain Osteoarthritis Osteoporosis Surgical History No history of previous surgery Family History Father CAD (coronary artery disease) Overweight Diabetes Mother Dementia Brother Lung disease Smoker Other Hypertension Social History Smoking and tobacco status: never smoked Alcohol intake: never Other details last substance use: Denies drug use Lives independently: Yes Household members: other Details: She lives alone Housing: House Physical Exam Const: COMMON NORMALS: no acute distress, patient oriented x3 and healthy appearing HENMT: COMMON NORMALS: normocephalic and atraumatic HEAD & SCALP: normocephalic and atraumatic Eye: COMMON NORMALS: Equal, round and reactive pupils present and EOMs intact bilaterally PUPIL: Yes Equal, round and reactive pupils present Neck/C-Spine: COMMON NORMALS: full ROM and supple Chest: COMMONS NORMALS: normal inspection of the chest and normal palpation of entire chest wall Resp: COMMON NORMALS: normal respiratory effort, No retractions, No use of accessory muscles and clear to auscultation bilaterally AUSCULTATION: clear to auscultation bilaterally Cardio: COMMON NORMALS: regular rate, regular rhythm and No murmurs present (Cardio) RATE: regular rate RHYTHM: regular rhythm GI: COMMON NORMALS: Normal to inspection, nondistended, normoactive bowel sounds present, Soft to palpation, non-tender and no masses PALPATION: Yes Soft to palpation Extremity: COMMON NORMALS: normal to inspection and full ROM Neuro: COMMON NORMALS: patient oriented x3, moves all extremities and no focal motor deficits Psych: COMMON NORMALS: mental status grossly normal, Normal thought process present and cooperative THOUGHT PROCESS: Normal thought process present Skin: COMMON NORMALS: no rashes or lesions noted and no wounds GENERAL SKIN EXAM: no rashes or lesions noted Course Vital Signs: Vital signs: Vital Signs Temperature 97.3 F L 05/21/20 19:35 Pulse Rate 84 05/21/20 22:23 Respiratory Rate 14 05/21/20 19:35 Blood Pressure 139/91 05/21/20 22:23 Pulse Oximetry 94 05/21/20 22:23 MDM - Altered Mental Status MDM Narrative: Medical decision making narrative: LC presents here with some hallucinations mainly at night. Patient's been well-appearing here and blood work and CT head is normal. She is able answer all my questions here appropriately has no altered mental status. She is not suicidal or homicidal an d has no acute psychosis. I did offer her transfer to geriatric psych facility which she refused. Patient does have medical decision-making capacity and had a family mother come and pick her up and will discharge her. She is to follow-up with PCP in 2 to 4 days return if worsening. She understands agrees to plan. Lab Data: Labs: Lab Results 05/21/20 05/21/20 05/21/20 Range/Units 19:55 19:55 19:55 WBC 3.8 L (4.0-10.0) 10^3/ uL RBC 4.04 L (4.1-5.3) 10^6/u L Hgb 13.5 (11.5-15.3) g/dL Hct 41.4 (37.0-47.0) % MCV 102.5 H (81-99) fL MCH 33.4 (28.0-34.0) pg MCHC 32.6 (30.0-36.0) g/dL RDW 12.1 (12.1-15.1) % Plt Count 184 (130-400) 10^3/c mm MPV 10.4 (7.4-10.4) fL Neut % (Auto) 60.9 % Lymph % (Auto) 21.4 % Mcpherson % (Auto) 10.0 % Eos % (Auto) 6.6 % Baso % (Auto) 1.1 % Neut # (Auto) 2.31 (1.8-7.7) 10^3/u L Lymph # (Auto) 0.8 (0.8-4.8) 10^3/u L Mcpherson # (Auto) 0.4 (0.2-0.9) 10^3/u L Eos # (Auto) 0.3 (0.0-0.8) 10^3/u L Baso # (Auto) 0.0 (0.0-0.1) 10^3/u L Nucleated RBC % (a uto) 0 % Nucleated RBCs # 0.0 /100WBC Sodium 138 (136-145) mmol/L Potassium 3.4 L (3.5-5.1) mmol/L Chloride 104 (98-107) mmol/L Carbon Dioxide 25 (22-29) mmol/L Anion Gap 12.4 (5-19) BUN 12 (8-23) mg/dL Creatinine 0.6 (0.5-0.9) mg/dL GFR Calculation Not Reportable Glucose 86 (65-115) mg/dL Calculated Osmolal ity 285 (285-295) mOsm/k g Calcium 9.1 (8.5-10.5) mg/dL Total Bilirubin 0.9 (0.15-1.2) mg/dL AST 15 (0-32) U/L ALT 11 (0-33) U/L Alkaline Phosphata se 83 (35-105) IU/L Ammonia 25 (11-51) umol/L Total Protein 7.0 (6.6-8.7) g/dL Albumin 4.3 (3.5-5.2) g/dL Globulin 2.7 (1.3-4.6) g/dL Urine Color (Yellow) Urine Appearance (CLEAR) Urine pH (5-7) Ur Specific Gravit y (1.005-1.030) Urine Protein (Negative) Urine Glucose (UA) (Normal) Urine Ketones (Negative) Urine Blood (Negative) Urine Nitrate (Negative) Urine Bilirubin (Negative) Urine Urobilinogen (Negative) mg/dL Ur Leukocyte Dorothea ase (Negative) Salicylates < 0.3 L (3-10) mg/dL Urine Opiates Scre en (Negative) ng/mL Acetaminophen < 5.0 L (10-30) ug/mL Ur Barbiturates Sc reen (Negative) ng/mL Ur Phencyclidine S crn (Negative) ng/mL Ur Amphetamines Sc reen (Negative) ng/mL U Benzodiazepines Scrn (Negative) ng/mL Urine Cocaine Scre en (Negative) ng/mL U Marijuana (THC) Screen (Negative) ng/mL Ethyl Alcohol < 10 (0-10) mg/dL 05/21/20 05/21/20 Range/Units 20:50 20:50 WBC (4.0-10.0) 10^3/ uL RBC (4.1-5.3) 10^6/u L Hgb (11.5-15.3) g/dL Hct (37.0-47.0) % MCV (81-99) fL MCH (28.0-34.0) pg MCHC (30.0-36.0) g/dL RDW (12.1-15.1) % Plt Count (130-400) 10^3/c mm MPV (7.4-10.4) fL Neut % (Auto) % Lymph % (Auto) % Mcpherson % (Auto) % Eos % (Auto) % Baso % (Auto) % Neut # (Auto) (1.8-7.7) 10^3/u L Lymph # (Auto) (0.8-4.8) 10^3/u L Mcpherson # (Auto) (0.2-0.9) 10^3/u L Eos # (Auto) (0.0-0.8) 10^3/u L Baso # (Auto) (0.0-0.1) 10^3/u L Nucleated RBC % (a uto) % Nucleated RBCs # /100WBC Sodium (136-145) mmol/L Potassium (3.5-5.1) mmol/L Chloride (98-107) mmol/L Carbon Dioxide (22-29) mmol/L Anion Gap (5-19) BUN (8-23) mg/dL Creatinine (0.5-0.9) mg/dL GFR Calculation Glucose (65-115) mg/dL Calculated Osmolal ity (285-295) mOsm/k g Calcium (8.5-10.5) mg/dL Total Bilirubin (0.15-1.2) mg/dL AST (0-32) U/L ALT (0-33) U/L Alkaline Phosphata se (35-105) IU/L Ammonia (11-51) umol/L Total Protein (6.6-8.7) g/dL Albumin (3.5-5.2) g/dL Globulin (1.3-4.6) g/dL Urine Color Yellow (Yellow) Urine Appearance Clear (CLEAR) Urine pH 5 (5-7) Ur Specific Gravit y 1.020 (1.005-1.030) Urine Protein Neg (Negative) Urine Glucose (UA) Norm (Normal) Urine Ketones Negative (Negative) Urine Blood Neg (Negative) Urine Nitrate Negative (Negative) Urine Bilirubin 1+ H (Negative) Urine Urobilinogen 1 H (Negative) mg/dL Ur Leukocyte Dorothea ase Negative (Negative) Salicylates (3-10) mg/dL Urine Opiates Scre en Negative (Negative) ng/mL Acetaminophen (10-30) ug/mL Ur Barbiturates Sc reen Negative (Negative) ng/mL Ur Phencyclidine S crn Negative (Negative) ng/mL Ur Amphetamines Sc reen Negative (Negative) ng/mL U Benzodiazepines Scrn Negative (Negative) ng/mL Urine Cocaine Scre en Negative (Negative) ng/mL U Marijuana (THC) Screen Negative (Negative) ng/mL Ethyl Alcohol (0-10) mg/dL Imaging Data^: CT Head: Attestation: I personally reviewed and interpreted this imaging study as follows: Radiologist's impression: [address] [address] [address] Scan Report Signed Patient: Dilcia Zimmerman Unit #: [id number] : 1940 Age/Sex: 79 / F ADM Date: 05/21/20 Loc: ER Room/Bed: Attending Dr: Ordering Provider/Ordering MD: Callie Doshi MD Date of Service: 05/21/20 Procedure(s): CT head wo con* [id number] Accession Number(s): [id number] Report Number: [id number] PROCEDURE INFORMATION: Exam: CT Head Without Contrast Exam date and time: 05/21/2020 8:21 PM Age: 79 years old Clinical indication: Altered mental status/memory loss; Confusion or disorientation; Additional info: AMS TECHNIQUE: Imaging protocol: Computed tomography of the head without contrast. Radiation optimization: All CT scans at this facility use at least one of these dose optimization techniques: automated exposure control; mA and/or kV adjustment per patient size (includes targeted exams where dose is matched to clinical indication); or iterative reconstruction. COMPARISON: CT head wo con* [id number] 03/26/2020 2:47 AM RADIATION DOSE METRICS: Total DLP (mGy-cm): 789.57 FINDINGS: Brain: Mild diffuse cortical volume loss. Mild hypodensities in supratentorial periventricular and subcortical white matter, consistent with microangiopathy. No intracranial hemorrhage. Cerebral ventricles: No ventriculomegaly. Bones/joints: Unremarkable. No acute fracture. Paranasal sinuses: Opacification multiple bilateral ethmoid air cells. Mucosal thickening in the maxillary sinuses. Small air-fluid levels in the left maxillary and sphenoid sinuses. Mastoid air cells: Visualized mastoid air cells are well aerated. Orbital cavity: Prior cataract surgery. Vasculature: No hyperdense artery. Soft tissues: Unremarkable. Nasal cavity: Multiple filling defects in the nasal cavity could represent polyps. CT/CT head wo con* [id number] IMPRESSION: 1. No acute intracranial abnormality. 2. Mild microangiopathy. 3. Inflammatory changes in the sinuses. 4. Possible nasal polyps. Direct visualization recommended. Discharge Plan Discharge Patient Disposition: Home Clinical Impression: Confusion Condition: Stable Prescriptions: No Action No Known Home Medications RF: 0 Discharge Orders: Discharge ED (Routine); Ordered 05/21/20 Ordered By: Callie Doshi Referrals: Kathleen Trejo MD [Primary Care Provider] - 1-3 days Discharge Diet: Advance as tolerated Discharge Activity: Resume usual activity Patient Instructions: Altered Mental Status (ED) Coding Level of Care Code ED Bulk Plant Manager for Chg Fwd Exam Comprehensive
[2020-05-21 19:56] VITALS: BP 103/69; PULSE 83; O2SAT 94
[2020-05-21 20:08] LABS: Basophils % 1.1 %; Eosinophils # 0.3 10^3/uL (0.0-0.8); Eosinophils % 6.6 %; Hematocrit 41.4 % (37.0-47.0); Hemoglobin 13.5 g/dL (11.5-15.3); Lymphocytes # 0.8 10^3/uL (0.8-4.8); Lymphocytes % 21.4 %; Mean Corpuscular HGB Conc 32.6 g/dL (30.0-36.0); Mean Corpuscular Hemoglobin 33.4 pg (28.0-34.0); Mean Corpuscular Volume 102.5 fL (81-99); Mean Platelet Volume 10.4 fL (7.4-10.4); Monocytes # 0.4 10^3/uL (0.2-0.9); Neutrophils # 2.31 10^3/uL (1.8-7.7); Neutrophils % 60.9 %; Nucleated Red Blood Cells % 0 %; Platelet Count 184 10^3/cmm (130-400); Red Blood Count 4.04 10^6/uL (4.1-5.3); Red Cell Distribution Width 12.1 % (12.1-15.1); White Blood Count 3.8 10^3/uL (4.0-10.0)
--- NOTE | 2020-05-21 20:18 | CTR_ITS ---
PROCEDURE INFORMATION: Exam: CT Head Without Contrast Exam date and time: 05/21/2020 8:21 PM Age: 79 years old Clinical indication: Altered mental status/memory loss; Confusion or disorientation; Additional info: AMS TECHNIQUE: Imaging protocol: Computed tomography of the head without contrast. Radiation optimization: All CT scans at this facility use at least one of these dose optimization techniques: automated exposure control; mA and/or kV adjustment per patient size (includes targeted exams where dose is matched to clinical indication); or iterative reconstruction. COMPARISON: CT head wo con* [id number] 03/26/2020 2:47 AM RADIATION DOSE METRICS: Total DLP (mGy-cm): 789.57 FINDINGS: Brain: Mild diffuse cortical volume loss. Mild hypodensities in supratentorial periventricular and subcortical white matter, consistent with microangiopathy. No intracranial hemorrhage. Cerebral ventricles: No ventriculomegaly. Bones/joints: Unremarkable. No acute fracture. Paranasal sinuses: Opacification multiple bilateral ethmoid air cells. Mucosal thickening in the maxillary sinuses. Small air-fluid levels in the left maxillary and sphenoid sinuses. Mastoid air cells: Visualized mastoid air cells are well aerated. Orbital cavity: Prior cataract surgery. Vasculature: No hyperdense artery. Soft tissues: Unremarkable. Nasal cavity: Multiple filling defects in the nasal cavity could represent polyps. CT/CT head wo con* [id number] IMPRESSION: 1. No acute intracranial abnormality. 2. Mild microangiopathy. 3. Inflammatory changes in the sinuses. 4. Possible nasal polyps. Direct visualization recommended. Radiation Dose CTDIVOL = (mGy): DLP = 789.57 (mGy-cm)
[2020-05-21 20:24] LABS: Acetaminophen < 5.0 ug/mL (10-30); Alanine Aminotransferase 11 U/L (0-33); Albumin Level 4.3 g/dL (3.5-5.2); Alcohol Level < 10 mg/dL (0-10); Alkaline Phosphatase 83 IU/L (35-105); Anion Gap 12.4 (5-19); Aspartate Amino Transferase 15 U/L (0-32); Blood Urea Nitrogen 12 mg/dL (8-23); Calcium 9.1 mg/dL (8.5-10.5); Carbon Dioxide 25 mmol/L (22-29); Chloride 104 mmol/L (98-107); Creatinine Clr Calc Pharmacy 43.3916; Globulin 2.7 g/dL (1.3-4.6); Glucose 86 mg/dL (65-115); Osmolality Calculated 285 mOsm/kg (285-295); Potassium 3.4 mmol/L (3.5-5.1); Salicylate < 0.3 mg/dL (3-10); Sodium 138 mmol/L (136-145); Total Bilirubin 0.9 mg/dL (0.15-1.2)
[2020-05-21 20:25] LABS: Ammonia 25 umol/L (11-51)
[2020-05-21 20:41] VITALS: BP 103/69; PULSE 76; O2SAT 92
[2020-05-21 21:12] LABS: Add Urine Microscopic? NO
[2020-05-21 21:19] LABS: Urine Appearance Clear (CLEAR); Urine Color Yellow (Yellow); pH Urine 5 (5-7)
[2020-05-21 21:20] LABS: Bilirubin Urine 1+ (Negative); Blood Urine Neg (Negative); Glucose Urine UA Norm (Normal); Ketones Urine Negative (Negative); Leukocyte Esterase Urine Negative (Negative); Nitrate Urine Negative (Negative); Protein Urine Neg (Negative); Urobilinogen Urine 1 mg/dL (Negative)
[2020-05-21 21:27] LABS: Amphetamines Screen Urine Negative (Negative); Barbiturates Screen Urine Negative (Negative); Benzodiazepines Screen Urine Negative (Negative); Cocaine Screen Urine Negative (Negative); Opiate Screen Urine Negative (Negative); PCP Screen Urine Negative (Negative); THC Screen Urine Negative (Negative)
[2020-05-21 21:31] VITALS: BP 139/91; PULSE 77; O2SAT 96
[2020-05-21 22:21] VITALS: BP 139/91; PULSE 89; O2SAT 93
[2020-05-21 22:23] VITALS: BP 139/91; PULSE 84; O2SAT 94
== END 2020-05-21 23:05 | disposition home or self-care (01) ==
PROVIDERS: Emergency Provider Emergency Medicine; PCP Family Medicine
DX: R41.0 Disorientation, unspecified (principal)
CPT/HCPCS: 70450; 80053; 80306; 80307; 81003; 82140; 85025; 99283

== ENCOUNTER 2020-06-04 14:44 | Emergency (ER) | payer MEDICARE, OTHER, SELFPAY ==
[2020-06-04 14:52] VITALS: BP 107/72; PULSE 101; RESP 15; TEMP 36.8; O2SAT 93; BMI 18.3
--- NOTE | 2020-06-04 15:17 | W.ED.GENADLT ---
HPI - General Adult General: Chief complaint: General Medical Stated complaint: ingested bleach Time Seen by Provider: 06/04/20 15:07 Source: patient Mode of arrival: ambulatory Limitations: no limitations History of Present Illness: HPI narrative: 80-year-old female patient presents to the emergency department due to accidental ingestion of bleach. She reports had bleach sitting on the table in a coffee cup, thought it was her left over Tea -reports ingested approximately 1 teaspoon, occurred earlier this afternoon. She reports came to the emergency department. She reports a scratchy throat but denies difficulty breathing or mouth pain upon exam. Onset (ago): hour(s) (2-3) Associated symptoms: Reports no associated symptoms; Deny chest pain, diaphoresis, dyspnea, headache(s), nausea, rash, palpitations or vomiting Review of Systems General: Reports: 10 or more systems reviewed and unremarkable except in HPI and below Const: Denies: fever(s), chills or diaphoresis Eyes: Denies: blurry vision or eye redness ENMT: Reports: throat pain (Scratchy throat); Denies: odynophagia, hoarseness, oral sores, bleeding gums, dental pain, disequilibrium, nasal discharge or nasal congestion Card: Denies: chest pain, palpitations or irregular heart rhythm Resp: Denies: dyspnea, productive cough, non-productive cough or wheezing GI: Denies: abdominal pain, nausea or vomiting : Denies: difficulty voiding or dysuria Musc: Denies: neck pain or back pain Skin/Breast: Denies: rash or pruritus Neuro: Denies: headache(s), weakness in extremities or behavioral changes Psych: Denies: anxiety or depression Zain/Lymph: Denies: easy bruising PFSH ED PFSH: Medical History Asthma Hepatic cyst Hilar lymphadenopathy Lower back pain Osteoarthritis Osteoporosis Surgical History No history of previous surgery Family History Father CAD (coronary artery disease) Overweight Diabetes Mother Dementia Brother Lung disease Smoker Other Hypertension Social History Smoking and tobacco status: never smoked Alcohol intake: never Other details last substance use: Denies drug use Lives independently: Yes Household members: other Details: She lives alone Housing: House Physical Exam Const: COMMON NORMALS: no acute distress, patient oriented x3, healthy appearing, alert and well nourished GENERAL APPEARANCE: cooperative, comfortable, frail appearing and well hydrated NUTRITIONAL APPEARANCE: thin ORIENTATION/CONSCIOUSNESS: Yes awake, Yes oriented to person, Yes oriented to place and Yes oriented to time HENMT: COMMON NORMALS: normocephalic, atraumatic, Normal external nose present and moist oral mucous membranes HEAD & SCALP: normal to inspection, normocephalic and atraumatic FACE & SINUS: normal facial exam and face symmetric NOSE: Normal external nose present MOUTH: Normal oral and palatal mucosa present, lip normal and tongue normal THROAT: posterior oropharynx normal, tonsils normal and uvula midline Eye: COMMON NORMALS: Equal, round and reactive pupils present and EOMs intact bilaterally GENERAL EYE: appearance normal, both eyes and all related structures PUPIL: Yes Equal, round and reactive pupils present Neck/C-Spine: COMMON NORMALS: full ROM and no lymphadenopathy GENERAL: Yes normal visual inspection and Yes trachea midline CERVICAL SPINE: Yes cervical ROM normal Lymph: LYMPHATIC: no lymphadenopathy noted Chest: COMMONS NORMALS: normal inspection of the chest and normal palpation of entire chest wall Resp: COMMON NORMALS: normal respiratory effort, No retractions, No use of accessory muscles and clear to auscultation bilaterally EFFORT & INSPECTION: Yes able to speak in complete sentences AUSCULTATION: clear to auscultation bilaterally Cardio: COMMON NORMALS: regular rate, regular rhythm, S1 normal heart sound present, S2 normal heart sound present and Peripheral pulses 2+ throughout RATE: regular rate RHYTHM: regular rhythm HEART SOUNDS: S1 normal heart sound present and S2 normal heart sound present PERIPHERAL PULSES: Peripheral pulses 2+ throughout GI: COMMON NORMALS: Soft to palpation and non-tender INSPECTION: Yes normal to inspection PALPATION: Yes Soft to palpation : COMMON NORMALS: Yes no CVA tenderness BLADDER/KIDNEY EXAM: Yes no CVA tenderness Back/Pelvis: COMMON NORMALS: no CVA tenderness and thoracic and lumbar spine normal to inspection Extremity: COMMON NORMALS: normal to inspection and capillary refill normal Neuro: COMMON NORMALS: patient oriented x3 and no focal motor deficits SENSORIUM/ORIENTATION: Yes alert, Yes oriented to person, Yes oriented to place and Yes oriented to time Psych: COMMON NORMALS: mental status grossly normal, Normal thought process present and cooperative ACTIVITY/MOTOR BEHAVIOR: Yes appropriate eye contact THOUGHT PROCESS: Normal thought process present Skin: COMMON NORMALS: no rashes or lesions noted and turgor normal GENERAL SKIN EXAM: no rashes or lesions noted and turgor normal Course ED course: I called and spoke with poison control, advised patient can be monitored at home without further need for testing or work-up. Vital Signs: Vital signs: Vital Signs Temperature 98.2 F 06/04/20 14:52 Pulse Rate 98 06/04/20 15:29 Respiratory Rate 18 06/04/20 15:29 Blood Pressure 110/67 06/04/20 15:29 Pulse Oximetry 98 06/04/20 15:29 Discharge Plan Discharge Patient Disposition: Home Clinical Impression: Ingestion of bleach Qualifiers: Encounter type: initial encounter Injury intent: accidental or unintentional Qualified Code(s): T54.91XA - Toxic effect of unspecified corrosive substance, accidental (unintentional), initial encounter Condition: Stable Prescriptions: No Action No Known Home Medications RF: 0 Discharge Orders: Discharge ED (Routine); Ordered 06/04/20 Ordered By: Aggie Cam Referrals: Kathleen Trejo MD [Primary Care Provider] - Discharge Diet: Usual diet Discharge Activity: Resume usual activity Patient Instructions: Opioid Safety Activity Restrictions/Additional Instructions: Eat foods that are soft and soothing to your throat. Foods may include popsicles, ice cream or smoothies. Avoid citrusy or salty foods as this can cause discomfort. Poison control will be contacting you later this evening to ensure you are improving. Poison control hotline is Coding Level of Care Code ED Lawn Sprinkler Servicer for Gabrielle Fwd Exam Comprehensive
[2020-06-04 15:29] VITALS: BP 110/67; PULSE 98; RESP 18; O2SAT 98
== END 2020-06-04 15:30 | disposition home or self-care (01) ==
PROVIDERS: Emergency Provider Nurse Practitioner Family; PCP Family Medicine
DX: T54.91XA Toxic effect of unspecified corrosive substance, accidental (unintentional), initial encounter (principal)
CPT/HCPCS: 99282

== ENCOUNTER 2020-07-23 12:41 | Outpatient (CLI) | payer MEDICARE, OTHER, SELFPAY ==
--- NOTE | 2020-07-23 12:47 | CT_ITS ---
WS: [id number] CT ABDOMEN PELVIS TECHNIQUE: Contrast-enhanced CT of the abdomen and pelvis with coronal and sagittal reformatted image s. CLINICAL INFORMATION: PELVIC MASS IN FEMALE COMPARISON: CT December 05, 2019 DLP: 201.[address] scans at [facility] use at least one of these dose optimization techniques: automat ed exposure control; mA and/or kV adjustment per patient size (includes targeted exams where dose is matched to clinical indication); or iterative reconstruction. FINDINGS: Again seen is the large low-attenuation peripherally enhancing mass in the lower abdomen extending in to the pelvis. Today this measures approximately 14.5 x 9.7 x 9.8 cm. This is not significantly wright ed since the prior examination. Bladder is decompressed today. Calcified uterine fibroid. Chronic emphysematous changes in the lung bases. Diffuse fatty infiltration of the liver. Multiple he patic cysts are stable in appearance. Normal gallbladder. Normal portal vein and splenic vein. Small esophageal hiatal hernia. Air-fluid level in the stomach. Air distention of the duodenum. Normal sple en. Adrenal glands are normal. Normal renal parenchymal enhancement. No hydronephrosis. Stable right pelvocaliectasis. Normal caliber abdominal aorta. Aortic calcification. Air distended loops of fluid-filled small bowel can be seen with ileus. Colon appears normal. Lumbar scoliosis. CT/CT abdomen pelvis w con* [id number] IMPRESSION: 1. Stable low-attenuation peripherally enhancing mass in the lower abdomen ext ending into the pelvis not significantly changed from previous. Today this maribell ures approximately 14.5 x 9.7 x 9.8 cm. Differential considerations are unchang ed and include ovarian neoplasm such as serous or mucinous cystadenoma/cystaden ocarcinoma. No enhancing nodular components visualized. 2. No abdominal lymphadenopathy. 3. Small esophageal hiatal hernia unchanged. 4. Calcified uterine fibroids. 5. Stable hepatic cysts.
[2020-07-23 14:21] LABS: Blood Urea Nitrogen 9 mg/dL (8-23)
[2020-07-23] MEDS: iohexol 300 mg/mL 50 mL Btl PO (14:37)
[2020-07-23] MEDS: iohexol 300 mg/mL 100 mL Btl IV (15:06)
== END 2020-07-23 12:42 | disposition home or self-care (01) ==
LOC: RADWPI 12:45
PROVIDERS: PCP Physician Assistant; Visit Provider Physician Assistant
DX: R19.00 Intra-abdominal and pelvic swelling, mass and lump, unspecified site (principal); K76.89 Other specified diseases of liver; D25.9 Leiomyoma of uterus, unspecified; K44.9 Diaphragmatic hernia without obstruction or gangrene
CPT/HCPCS: 36415; 74177; 82565; 84520; Q9967

== ENCOUNTER 2023-05-17 16:18 | Inpatient (IN) | payer MEDICARE, OTHER, SELFPAY ==
[2023-05-17] VITALS (17 sets, daily range): BP systolic 85–129; BP diastolic 50–79; PULSE 66–101; RESP 16–21; TEMP 36.4–36.8; O2SAT 94–100; BMI 15.5; BMI 13.7
--- NOTE | 2023-05-17 16:21 | XRR_ITS ---
PROCEDURE INFORMATION: Exam: XR Chest Exam date and time: 05/17/2023 4:30 PM Age: 82 years old Clinical indication: Cough and dyspnea; Additional info: Dyspnea/cough TECHNIQUE: Imaging protocol: Radiologic exam of the chest. Views: 1 view. COMPARISON: CT angio chest PE protcl [id number] 03/26/2020 11:29 PM FINDINGS: Lungs: Coarsening of the perihilar interstitium noted without change. Pleural spaces: No pleural effusion or pneumothorax. Heart/Mediastinum: Unremarkable. Vasculature: Tortuous thoracic aorta. Bones/joints: Thoracolumbar spine curvature with degenerative change. Other findings: Patient is rotated. XR/XR chest 1V portable [id number] IMPRESSION: No acute pathology or significant interval change.
--- NOTE | 2023-05-17 16:23 | ECG_ITS ---
[facility] Test Date: 2023-05-17 Pat Name: Dilcia Zimmerman Department: Room: Gender: Female Increment Manager: : 1940 Requested By: Rell Alba Order Number: [id number] Esme MD: Briana Hernandez M.D. Measurements Intervals [place] Rate: 71 P: 0 IA: 0 QRS: 34 QRSD: 89 T: 0 QT: 416 QTc: 453 Interpretive Statements Possible ATRIAL FIBRILLATION WITH ABERRANT CONDUCTION OR VENTRICULAR PREMATURE COMPLEXES. Because of the heavy baseline artifact, difficult to discern the rhythm LOW QRS VOLTAGE IN EXTREMITY LEADS [QRS DEFLECTION < 0.5 mV IN LIMB LEADS] NONSPECIFIC ST & T-WAVE ABNORMALITY ABNORMAL RHYTHM ECG Compared to ECG 03/26/2020 02:28:08 Ventricular premature complex(es) now present Aberrant conduction of supraventricular beat(s) now present Low QRS voltage now present T-wave abnormality now present Sinus rhythm no longer present Electronically Signed On 05-18-2023 18:23:28 TEACHING ARTIST by Briana Hernandez M.D. [email or web address]
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
[2023-05-17] MEDS: sodium chloride 0.9% 1,000 ML 999 ML IV (17:00)
[2023-05-17 17:26] LABS: Basophils % 0.2 %; Hematocrit 23.2 % (36-47); Lymphocytes # 0.5 10^3/uL (0.8-4.8); Lymphocytes % 10.7 %; Mean Corpuscular HGB Conc 29.3 g/dL (30-55); Mean Corpuscular Hemoglobin 29.3 pg (27-33); Mean Platelet Volume 10.5 fL (7.4-10.4); Monocytes # 0.2 10^3/uL (0.2-0.9); Monocytes % 4.3 %; Neutrophils # 3.71 10^3/uL (1.8-7.7); Neutrophils % 84.6 %; Nucleated Red Blood Cells % 0 %; Platelet Count 118 10^3/cmm (157-399); Red Blood Count 2.32 10^6/uL (3.85-5.65); Red Cell Distribution Width 17.8 % (12.1-15.1); White Blood Count 4.39 10^3/uL (3.29-11.43)
[2023-05-17 17:38] LABS: Ketone (Acetest) Serum Negative (Negative)
[2023-05-17 17:48] LABS: Alanine Aminotransferase 25 U/L (0-33); Albumin Level 2.5 g/dL (3.5-5.2); Alkaline Phosphatase 85 U/L (35-105); Anion Gap 14.2 (5-19); Aspartate Amino Transferase 21 U/L (0-32); Blood Urea Nitrogen 35 mg/dL (8-23); Calcium 7.6 mg/dL (8.5-10.5); Carbon Dioxide 24 mmol/L (22-29); Chloride 107 mmol/L (98-107); Creatine Phosphokinase 155 U/L (26-192); Creatinine Clr Calc Pharmacy 32.9993; Globulin 1.7 g/dL (1.3-4.6); Glucose 104 mg/dL (65-115); Osmolality Calculated 302 mOsm/kg (285-295); Potassium 3.2 mmol/L (3.5-5.1); Sodium 142 mmol/L (136-145); Total Bilirubin 0.4 mg/dL (0.15-1.2); Total Protein 4.2 g/dL (6.6-8.7); Troponin(5th) Baseline 58 ng/L (0-10)
--- NOTE | 2023-05-17 18:21 | P.HP_ITS ---
Providers/Chief Complaint 2 Primary Care Provider: Jenni Camarillo Chief Complaint: failure to thrive History of Present Illness Dilcia Zimmerman is a 82 year old female who is known to provide history, tried to call her family they are not picking up the phone is going to voicemail and other number is not set up for voicemail. Patient is stating that she is worried about a doctor's son who was with her but not in the room anymore. She is able to answer simple questions, moving her extremities, makes eye contact, emaciated malnourished cachectic. No abdominal pain no active chest pain or shortness of breath currently hemodynamically stable getting 1 unit PRBC On room air. Low extremity edema Edema of extremities noted Review of records: I requested CT abdomen pelvis with contrast because she has history of pelvic mass 2020 concern for ovarian cancer I do not have goals of care I would keep her full code until we hear back from the family Review of Systems 2 General: Reports: ROS unobtainable due to medical condition Medications/Allergies Home Medications Medication Instructions Recorded Confirmed Last Taken Type No Known Home Medications 03/26/20 05/21/20 Unknown History Allergies Allergy/AdvReac Type Severity Reaction Status Date / Time No Known Allergies Allergy Verified 06/04/20 14:55 PFSH Acute 2 PFSH: Medical History Hepatic cyst Hilar lymphadenopathy Osteoarthritis Asthma Lower back pain Osteoporosis Surgical History No history of previous surgery Family History Father CAD (coronary artery disease) Overweight Diabetes Mother Dementia Brother Lung disease Smoker Other Hypertension Social History Smoking and tobacco/nicotine status: never used tobacco/nicotine Alcohol intake: never Substance/Drug Use: never Lives independently: Yes Household members: other Details: She lives alone Housing: House Vitals/I&O/Wt Last Vital Signs Temp 97.6 F 05/17/23 16:21 Pulse 82 05/17/23 18:00 Resp 19 H 05/17/23 18:00 BP 101/64 05/17/23 18:00 Pulse Ox 100 05/17/23 18:00 O2 Del Method Room Air 05/17/23 17:51 05/17/23 05/17/23 05/17/23 06:59 14:59 22:59 Intake Total 1000 / 1000 Balance 1000 / 1000 Weight last 48 hrs Weight 38.555 kg Physical Exam 2 Narrative: Patient is cachectic, malnourished Low BMI Moving her extremities NIH 0 Extremities are edematous 1+ edema Hemodynamic stable Getting 1 unit PRBC No abdominal pain S1, S2 Currently on room Oriented to herself Data 05/17/23 17:03 05/17/23 17:03 A&P Assessment and plan (1) Hepatic cyst: (2) Ovarian mass: (3) Anemia, macrocytic: (4) Hypoalbuminemia: (5) Hypokalemia: (6) Thrombocytopenia: (7) Failure to thrive: (8) Protein calorie malnutrition: Plan Failure to thrive Significant protein calorie malnourishment Hypoalbuminemia Macrocytic anemia Edema related to low protein Albumin I do not have specific goals of care I will treat her full code for now Keep her on clear liquids Requested urine pelvis with contrast Give her 1 unit PRBC Family was not reachable I tried 2 times Previous history of pelvic mass/ovarian Metabolic encephalopathy related to dehydration can continue IV fluids gentle hydration after blood transfusion Will request B12 and TSH Attestations 2 Medical Necessity Statement*: More than 2 midnights anticipated Diagnoses Hepatic cyst K76.89 Ovarian mass N83.8 Anemia, macrocytic D53.9 Hypoalbuminemia E88.09 Hypokalemia E87.6 Thrombocytopenia D69.6 Failure to thrive Protein calorie malnutrition E46
--- NOTE | 2023-05-17 18:23 | ECG_ITS ---
[facility] Test Date: 2023-05-17 Pat Name: Dilcia Zimmerman Department: Room: Gender: Female [employer] Machine Feeder: : 1940 Requested By: Rell Alba Order Number: [id number] Esme MD: Briana Hernandez M.D. Measurements Intervals Colon Rate: 88 P: 0 ME: 0 QRS: 34 QRSD: 82 T: -60 QT: 372 QTc: 450 Interpretive Statements ATRIAL FIBRILLATION WITH ABERRANT CONDUCTION OR VENTRICULAR PREMATURE COMPLEXES NONSPECIFIC ST & T-WAVE ABNORMALITY Compared to ECG 05/17/2023 17:01:58 No significant changes Electronically Signed On 05-18-2023 18:32:26 INFORMATICS SPECIALIST by Briana Hernandez M.D. [id number]
[2023-05-17 18:49] LABS: Procalcitonin 0.09 ng/mL (0-0.5)
[2023-05-17 18:58] LABS: Troponin 5 2HR 54.91 ng/L (0-10)
[2023-05-17 19:03] LABS: Troponin 5 2HR Delta -3.09 ABS# (0-10)
[2023-05-17] MEDS: sodium chloride 0.9% 100 mL Bag 50 ML IV (19:33)
--- NOTE | 2023-05-17 20:04 | CTR_ITS ---
PROCEDURE INFORMATION: Exam: CT Abdomen And Pelvis With Contrast Exam date and time: 05/17/2023 11:57 PM Age: 82 years old Clinical indication: Other: Pelvic mass; Additional info: Anemia, pelvic mass TECHNIQUE: Imaging protocol: Computed tomography of the abdomen and pelvis with contrast. Radiation optimization: All CT scans at this facility use at least one of these dose optimization techniques: automated exposure control; mA and/or kV adjustment per patient size (includes targeted exams where dose is matched to clinical indication); or iterative reconstruction. Contrast material: OMNI 350; Contrast volume: 80 ml; Contrast route: INTRAVENOUS (IV); COMPARISON: CT abdomen pelvis w con* [id number] 07/23/2020 2:44 PM RADIATION DOSE METRICS: Total DLP (mGy-cm): 289.72 FINDINGS: Lungs: There are atelectatic changes left lung base. Diaphragm: There is a small hiatal hernia. Liver: There are multiple stable hypodense liver lesions measuring up to 2.3 x 1.8 cm in segment 6 liver. No new or suspicious liver lesions. Gallbladder and bile ducts: Normal. No calcified stones. No ductal dilation. Pancreas: Normal. No ductal dilation. Spleen: Normal. No splenomegaly. Adrenal glands: Normal. No mass. Kidneys and ureters: There is a 7.5 mm lesion in the inferior pole of the right kidney with increased density, that might represent a hemorrhagic cyst given that there was a cyst in the location on the prior study. Bilateral millimetric simple renal cysts. No hydronephrosis on either side. Stomach and bowel: Unremarkable. No obstruction. No mucosal thickening. Appendix: No evidence of appendicitis. Intraperitoneal space: There is a large hypodense pelvic mass measuring 9.7 x 14 x 14.5 cm with an average CT density of 8 Hounsfield units. Mass displacing the uterus posteriorly causing mild mass on the colon. Vasculature: Vascular calcifications. Pelvic phleboliths. Lymph nodes: Unremarkable. No enlarged lymph nodes. Urinary bladder: Unremarkable as visualized. Reproductive: There are calcified uterine fibroids. Bones/joints: There is a mild curvature the lumbar spine convex to the left. Mild degenerative disease of the sacroiliac joints. Mild compression deformity of the L4 vertebral body. Multilevel degenerative of the lumbar spine. Soft tissues: Body anasarca.. CT/CT abdomen pelvis w con* [id number] IMPRESSION: 1. A 14 cm hypodense peripherally enhancing pelvic mass likely arising from the left adnexa with no nodular enhancement in density similar to fluid. This stable compared to the prior study. Differential diagnosis remains serous or mucinous cystadenoma/cystadenocarcinoma. 2. No metastatic disease in the abdomen. COMMENTS: Consistent with the [employer]'s Incidental Findings Committee white paper (J Am Dayron Radiol 2018): Any incidental renal lesion less than 1 cm or classified as too small to characterize, or any incidental cystic renal lesion characterized as simple-appearing, is likely benign. No follow-up imaging is recommended for these lesions per consensus recommendations based on imaging criteria.
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
[2023-05-17 23:27] LABS: Troponin 5 6HR 60.55 ng/L (0-10); Troponin 5 6HR Delta 2.55 ng/L (0-12)
[2023-05-18] VITALS (7 sets, daily range): BP systolic 102–124; BP diastolic 64–76; PULSE 68–76; RESP 16–18; TEMP 36.4–36.8; O2SAT 93–99
[2023-05-18] MEDS: iohexol 350 mg/mL 500 mL Btl (per mL) IV (00:08)
[2023-05-18 00:14] LABS: Thyroid Stimulating Hormone 4.54 uIU/mL (0.27-4.20); Vitamin B12 307 pg/mL (232-1245)
[2023-05-18] MEDS: sodium chloride 0.9% 1,000 ML 75 ML IV (01:02)
[2023-05-18 06:03] LABS: Basophils % 0.2 %; Hematocrit 28.4 % (36-47); Lymphocytes # 0.8 10^3/uL (0.8-4.8); Lymphocytes % 18.4 %; Mean Corpuscular HGB Conc 31.3 g/dL (30-55); Mean Corpuscular Hemoglobin 29.4 pg (27-33); Mean Corpuscular Volume 93.7 fl (85-98); Mean Platelet Volume 10.2 fL (7.4-10.4); Monocytes # 0.2 10^3/uL (0.2-0.9); Monocytes % 5.4 %; Neutrophils # 3.34 10^3/uL (1.8-7.7); Neutrophils % 75.8 %; Nucleated Red Blood Cells % 0 %; Platelet Count 109 10^3/cmm (157-399); Red Blood Count 3.03 10^6/uL (3.85-5.65); Red Cell Distribution Width 18.6 % (12.1-15.1); White Blood Count 4.41 10^3/uL (3.29-11.43)
[2023-05-18 06:24] LABS: Anion Gap 14.1 (5-19); Blood Urea Nitrogen 31 mg/dL (8-23); C Reactive Protein 29.1 mg/L (0.0-4.9); Calcium 7.8 mg/dL (8.5-10.5); Carbon Dioxide 25 mmol/L (22-29); Chloride 110 mmol/L (98-107); Creatinine Clr Calc Pharmacy 33.3879; Glucose 71 mg/dL (65-115); Osmolality Calculated 307 mOsm/kg (285-295); Potassium 3.1 mmol/L (3.5-5.1); Sodium 146 mmol/L (136-145)
[2023-05-18] MEDS: sennosides-docusate Tablet 1 TAB PO (08:06)
[2023-05-18] MEDS: pantoprazole 40 mg SDV IVP ×2 (08:13→17:13)
--- NOTE | 2023-05-18 10:03 | PC.CHAP ---
Pastoral Care Encounter/Spiritual Assessment Type of Contact [] Declined malt liquors sales representative visit [] Patient/Family/Request visit [] Outpatient visit [] Follow-up visit [] Physician referral [] Code/Alert [x] Routine visit [] Staff referral [] Actively dying [] Patient sleeping [] Family support [] [] Out of room [] Palliative care [] [] Receiving care in room [] Pre-surgical visit [] Trauma [] Long length of stay [] ICU visit [] Other: Relational/Emotional Strength [] Patient feels connected with others/family/visitors/staff [x] Distress [] Loneliness/isolation [] Abandonment Spirituality of Patient [x] Person of Merary [] Attends Oriental Orthodox of their Merary [x] Believes in Prayer [] Reads Bible or Anabaptism materials [] There are Spiritual issues to be addressed Landscaper Helper Interventions [x] Prayer [x] Active listening [x] Non-anxious presence [x] Spiritual/emotional support [] Crisis/trauma care [] Spiritual counseling [] Bereavement support [] Provided bereavement packet [] Provided Bible/devotional materials [] Provided toy/stuffed animal, coloring book to patient or family member [] Provided Communion [] Anointing/[place] [] Salvation [x] Completed spiritual assessment [] Other: Impact on Illness or Injury [] Angry [] Fearful [] Anxious [] Often cries [] Exhaustion [] Unable to work [] Unable to attend restorationism [] Unable to walk/stand [] Unable to read [] Unable to drive [] Unable to eat/drink [] Unable to sleep [] Unable to be with family [] Patient intubated [] Other: Summary Time spent with patient 10 min
--- NOTE | 2023-05-18 11:43 | PM.PN ---
Subjective Subjective: Spoke with the daughter today for 10 minutes on the phone She is in [place] Other number is still going on voicemail She is not sure what could be the potential disposition plan I told her about current situation, prognosis if she is not eating well, she is getting dehydrated Today she is still confused asking for feeling up her truck she is try to get out of bed to get a fuel tank Vitals/I&O/Wt Last Vital Signs Temp 97.6 F 05/18/23 11:31 Pulse 70 05/18/23 11:31 Resp 16 05/18/23 11:31 BP 122/76 05/18/23 11:31 Pulse Ox 96 05/18/23 11:31 O2 Del Method Room Air 05/18/23 11:31 05/17/23 05/18/23 05/18/23 22:59 06:59 14:59 Intake Total 1000 / 1000 0 / 1000 480 / 480 Balance 1000 / 1000 0 / 1000 480 / 480 Weight last 48 hrs Weight 39.009 kg Weight 34.019 kg Weight 38.555 kg Physical Exam Narrative: Dementia Oriented to herself NIH 2 Nonfocal neuroexam Will be redirectable Dehydrated GCS 15 S1, S2 Hemodynamically stable Abdomen soft Cachectic, malnourished Data 05/18/23 05:20 05/18/23 05:20 A&P Assessment and plan (1) Thrombocytopenia: (2) Failure to thrive: (3) Protein calorie malnutrition: (4) Hepatic cyst: (5) Hypokalemia: (6) Ovarian mass: (7) Anemia, macrocytic: (8) Hypoalbuminemia: (9) Dehydration: (10) Dementia: (11) Delirium: (12) Acute hypernatremia: Plan Delirium with underlying dementia Secondary to poor p.o. intake Hypernatremia: Change normal saline to D5 today Requested speech therapy Add dysphagia diet Patient is oriented to herself Full code Spoke with her daughter in [place], she is a older daughter phone number is [phone]: Natalie is her name She is not sure about the disposition plan She asked me to call her sister in [place] to discuss disposition plan, her sister is not picking up the phone and is going to voicemail Patient is not ready to be discharged I am treating her for dehydration for now Ovarian mass with similar dimensions, Attestations Medical Necessity Statement*: Continue medical management Diagnoses Thrombocytopenia D69.6 Failure to thrive Protein calorie malnutrition E46 Hepatic cyst K76.89 Hypokalemia E87.6 Ovarian mass N83.8 Anemia, macrocytic D53.9 Hypoalbuminemia E88.09 Dehydration E86.0 Dementia F03.90 Delirium R41.0 Acute hypernatremia E87.0
[2023-05-18] MEDS: dextrose 5%-sod chloride 0.9% 1,000 ML 75 ML IV (12:46)
[2023-05-18 14:04] LABS: Iron 107 ug/dL (37-145); Percent Saturation 53.5 % (20-50); Total Iron Binding Capacity 200 mcg/dl; Unsaturated Iron Binding 93 ug/dL (112-347)
[2023-05-19] VITALS (7 sets, daily range): BP systolic 106–143; BP diastolic 68–79; PULSE 74–85; RESP 16–20; TEMP 36.7–36.8; O2SAT 93–98
[2023-05-19] MEDS: morphine IR 15 mg Tablet PO (00:26)
[2023-05-19] MEDS: dextrose 5%-sod chloride 0.9% 1,000 ML 75 ML IV (01:47)
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
[2023-05-19 05:45] LABS: Basophils % 0.3 %; Eosinophils % 0.5 %; Hematocrit 25.4 % (36-47); Lymphocytes # 0.6 10^3/uL (0.8-4.8); Lymphocytes % 16.6 %; Mean Corpuscular HGB Conc 30.7 g/dL (30-55); Mean Corpuscular Hemoglobin 29.7 pg (27-33); Mean Corpuscular Volume 96.6 fl (85-98); Mean Platelet Volume 10.4 fL (7.4-10.4); Monocytes # 0.2 10^3/uL (0.2-0.9); Monocytes % 4.8 %; Neutrophils # 2.89 10^3/uL (1.8-7.7); Neutrophils % 77.5 %; Nucleated Red Blood Cells % 0 %; Platelet Count 83 10^3/cmm (157-399); Red Blood Count 2.63 10^6/uL (3.85-5.65); Red Cell Distribution Width 19.3 % (12.1-15.1); White Blood Count 3.73 10^3/uL (3.29-11.43)
[2023-05-19 06:20] LABS: Anion Gap 12.2 (5-19); Blood Urea Nitrogen 27 mg/dL (8-23); Calcium 7.1 mg/dL (8.5-10.5); Carbon Dioxide 24 mmol/L (22-29); Chloride 115 mmol/L (98-107); Creatinine Clr Calc Pharmacy 34.5528; Glucose 82 mg/dL (65-115); Osmolality Calculated 310 mOsm/kg (285-295); Potassium 3.2 mmol/L (3.5-5.1); Sodium 148 mmol/L (136-145)
[2023-05-19] MEDS: sennosides-docusate Tablet 1 TAB PO (09:02)
[2023-05-19] MEDS: cyanocobalamin 1,000 mcg/mL SDV 1000 MCG IM (09:02)
[2023-05-19] MEDS: iron complex forte Capsule 1 EACH PO (09:02)
--- NOTE | 2023-05-19 09:59 | PC.SOCIAL ---
IMM Update pg 2 of IMM copy left @ bedside. Patient has dementia. CM will attempt to call family to update IMM. Copy dated, initialed and placed in chart.
--- NOTE | 2023-05-19 10:11 | P.PN_ITS ---
Subjective 2 Subjective: Patient is still confused Oriented times self Did not do well with physical therapy I will change IV fluids to D5 only Patient is showing signs of aspiration Currently on dysphagia diet Vitals/I&O/Wt Last Vital Signs Temp 98.3 F 05/19/23 07:45 Pulse 83 05/19/23 07:45 Resp 17 05/19/23 07:45 BP 133/68 05/19/23 07:45 Pulse Ox 95 05/19/23 07:45 O2 Del Method Room Air 05/19/23 07:45 05/18/23 05/19/23 05/19/23 22:59 06:59 14:59 Intake Total 480 / 2215 976.25 / 3191.25 240 / 240 Balance 480 / 2215 976.25 / 3191.25 240 / 240 Weight last 48 hrs Weight 40.37 kg Weight 39.009 kg Weight 34.019 kg Weight 38.555 kg Physical Exam 2 Narrative: Patient sitting in a recliner GCS 15 Currently on room air Mild crackles at base of the lungs She was clearing her throat again and again Hemodynamic stable Cachectic, malnourished Dehydrated Nonfocal neuroexam Able to answer simple questions Not able to follow commands completely Data 05/19/23 05:12 05/19/23 05:12 A&P Assessment and plan (1) Thrombocytopenia: (2) Failure to thrive: (3) Protein calorie malnutrition: (4) Hepatic cyst: (5) Hypokalemia: (6) Dehydration: (7) Acute hypernatremia: (8) Ovarian mass: (9) Anemia, macrocytic: (10) Hypoalbuminemia: (11) Delirium: (12) Dementia: Plan Delirium with underlying dementia Related dehydration Continue IV fluids however I will change to D5 only Aspiration Currently on room air Currently on dysphagia diet No fever Repeat x-ray today Awaiting mass, no plan for intervention for histopathological diagnosis Patient has not done well with physical therapy today Will need prison placement for rehab Protein calorie malnourishment Will add protein shakes Significant muscle mass loss Poor BMI Poor appetite I would avoid adding mirtazapine considering her age and risk of falls Attestations 2 Medical Necessity Statement*: Awaiting placement Diagnoses Thrombocytopenia D69.6 Failure to thrive Protein calorie malnutrition E46 Hepatic cyst K76.89 Hypokalemia E87.6 Dehydration E86.0 Acute hypernatremia E87.0 Ovarian mass N83.8 Anemia, macrocytic D53.9 Hypoalbuminemia E88.09 Delirium R41.0 Dementia F03.90
--- NOTE | 2023-05-19 10:14 | XRR_ITS ---
PROCEDURE INFORMATION: Exam: XR Chest Exam date and time: 05/19/2023 11:02 AM Age: 82 years old Clinical indication: Shortness of breath; Additional info: Aspirated TECHNIQUE: Imaging protocol: Radiologic exam of the chest. Views: 1 view. COMPARISON: CR XR chest 1V portable [id number] 05/17/2023 4:30 PM FINDINGS: Lungs: Right basilar atelectasis/consolidation. Pleural spaces: There may be a small right pleural effusion. No pneumothorax. Heart/Mediastinum: No cardiomegaly. Bones/joints: No acute findings. XR/XR chest 1V portable [id number] IMPRESSION: Right basilar atelectasis/consolidation, underlying aspirate or small pleural effusion is possible.
[2023-05-19] MEDS: dextrose 5% 1,000 ML 75 ML IV (11:43)
[2023-05-19] MEDS: pantoprazole 40 mg SDV IVP ×2 (11:45→18:05)
[2023-05-20] VITALS: BP 119/74; PULSE 74; RESP 17; O2SAT 93
[2023-05-20] MEDS: dextrose 5% 1,000 ML 75 ML IV (01:08)
[2023-05-20 06:38] LABS: Eosinophils % 0.6 %; Hematocrit 24.8 % (36-47); Mean Corpuscular HGB Conc 31.5 g/dL (30-55); Mean Corpuscular Hemoglobin 29.8 pg (27-33); Mean Corpuscular Volume 94.7 fl (85-98); Mean Platelet Volume 10.7 fL (7.4-10.4); Monocytes # 0.2 10^3/uL (0.2-0.9); Monocytes % 4.4 %; Neutrophils # 3.98 10^3/uL (1.8-7.7); Neutrophils % 75.4 %; Nucleated Red Blood Cells % 0 %; Platelet Count 107 10^3/cmm (157-399); Red Blood Count 2.62 10^6/uL (3.85-5.65); Red Cell Distribution Width 18.6 % (12.1-15.1); White Blood Count 5.27 10^3/uL (3.29-11.43)
[2023-05-20 07:05] LABS: Blood Urea Nitrogen 19 mg/dL (8-23); Carbon Dioxide 25 mmol/L (22-29); Chloride 107 mmol/L (98-107); Creatinine Clr Calc Pharmacy 35.4019; Glucose 77 mg/dL (65-115); Osmolality Calculated 295 mOsm/kg (285-295); Sodium 142 mmol/L (136-145)
[2023-05-20 07:35] VITALS: PULSE 74; RESP 16; O2SAT 93
[2023-05-20 08:03] VITALS: BP 116/74; PULSE 82; RESP 18; TEMP 36.7; O2SAT 94
[2023-05-20] MEDS: cyanocobalamin 1,000 mcg/mL SDV 1000 MCG IM (09:29)
[2023-05-20 09:30] VITALS: RESP 18; O2SAT 94
[2023-05-20] MEDS: morphine IR 15 mg Tablet PO (09:30)
[2023-05-20] MEDS: sennosides-docusate Tablet 1 TAB PO (09:30)
[2023-05-20] MEDS: iron complex forte Capsule 1 EACH PO (09:30)
[2023-05-20] MEDS: pantoprazole 40 mg SDV IVP (09:31)
--- NOTE | 2023-05-20 10:34 | P.DS_ITS ---
Discharge Providers Date of Admission: 05/17/23 17:55 Date of Discharge: May 20, 2023 Attending Provider at Admission: Aramis Shea MD Attending Provider at Discharge: Aramis Shea MD Primary Care Provider: Jenni Camarillo Diagnoses at Discharge Discharge Diagnosis (1) Thrombocytopenia: Status: Acute (2) Failure to thrive: Status: Acute (3) Protein calorie malnutrition: Status: Acute (4) Hepatic cyst: Status: Chronic (5) Hypokalemia: Status: Acute (6) Dehydration: Status: Acute (7) Acute hypernatremia: Status: Acute (8) Ovarian mass: Status: Acute (9) Anemia, macrocytic: Status: Acute (10) Hypoalbuminemia: Status: Acute (11) Delirium: Status: Acute (12) Dementia: Status: Acute Reason for Visit Reason for Visit: failure to thrive Hospital Course Hospital Course 82-year-old female who was admitted for management evaluation of failure to thrive anorexia malnourishment and dehydration, patient was only oriented to herself, she suffered from delirium related to dehydration with underlying dementia. Her symptoms improved she became much more calm and cooperative with continuation of IV fluids, her hyponatremia improved with use of D5, her p.o. intake has slightly improved as well, I did speak with her both daughters, one of the daughters Natalie is in [place] she has financial power of checkman, credit and loan collections supervisor is Jennifer who is in [place], they are agreeable for shelter placement for now, they are not looking for long-term placement as of yet, Jennifer has been Hotlined, on physical exam we found wounds on her leg signs of recurrent falls and with signs of dehydration and poor health. Patient received 2 units PRBC for her macrocytic anemia she was given vitamin B12 intramuscular injection during hospitalization which I would continue to perform a p.o. regimen at the time of discharge, her sodium at the time of discharge 142. She is verbally redirectable. Chest x-ray unremarkable abdominal CT is showing similar pelvic mass which was evident 3 years ago it has not changed in dimension, family does not want to pursue any investigation for now. At the time of discharge patient asked very appropriate questions such as how will she get transferred from the hospital, if I am going to see her at the shelter as well & who will be her MD Physical Exam Narrative: Awake and alert Pleasant cooperative Verbally redirectable GCS 15 Signs of dehydration improving S1, S2 Discharge Data Studies Completed and Pending Completed Studies During Hospitalization Category Date Time Status CT abdomen pelvis w con* [id number] Routine Cat Scan 05/17/23 20:04 Completed XR chest 1V portable [id number] Routine Exams 05/19/23 10:14 Completed XR chest 1V portable [id number] Stat Exams 05/17/23 16:21 Completed Pending at discharge Category Date Time Status Leukocyte Reduced RBC Stat Lab 05/17/23 17:54 Results Type and Screen Routine Lab 05/17/23 17:54 Results Urinalysis Stat Lab 05/17/23 16:23 Uncollected Radiology Impressions Abdomen/Pelvis CT 05/17/23 20:04 IMPRESSION: 1. A 14 cm hypodense peripherally enhancing pelvic mass likely arising from the left adnexa with no nodular enhancement in density similar to fluid. This stable compared to the prior study. Differential diagnosis remains serous or mucinous cystadenoma/cystadenocarcinoma. 2. No metastatic disease in the abdomen. COMMENTS: Consistent with the [employer]'s Incidental Findings Committee white paper (J Am Dayron Radiol 2018): Any incidental renal lesion less than 1 cm or classified as too small to characterize, or any incidental cystic renal lesion characterized as simple-appearing, is likely benign. No follow-up imaging is recommended for these lesions per consensus recommendations based on imaging criteria. Chest X-Ray 05/19/23 10:14 IMPRESSION: Right basilar atelectasis/consolidation, underlying aspirate or small pleural effusion is possible. Laboratory Results WBC 5.27 10^3/uL (3.29-11.43) 05/20/23 05:53 RBC 2.62 10^6/uL (3.85-5.65) L 05/20/23 05:53 Hgb 7.80 g/dL (11.27-16.99) L 05/20/23 05:53 Hct 24.8 % (36-47) L 05/20/23 05:53 MCV 94.7 fl (85-98) 05/20/23 05:53 MCH 29.8 pg (27-33) 05/20/23 05:53 MCHC 31.5 g/dL (30-55) 05/20/23 05:53 RDW 18.6 % (12.1-15.1) H 05/20/23 05:53 Plt Count 107 10^3/cmm (157-399) L 05/20/23 05:53 MPV 10.7 fL (7.4-10.4) H 05/20/23 05:53 Neut % (Auto) 75.4 % 05/20/23 05:53 Lymph % (Auto) 19.0 % 05/20/23 05:53 [place] % (Auto) 4.4 % 05/20/23 05:53 Eos % (Auto) 0.6 % 05/20/23 05:53 Baso % (Auto) 0.0 % 05/20/23 05:53 Neut # (Auto) 3.98 10^3/uL (1.8-7.7) 05/20/23 05:53 Lymph # (Auto) 1.0 10^3/uL (0.8-4.8) 05/20/23 05:53 [place] # (Auto) 0.2 10^3/uL (0.2-0.9) 05/20/23 05:53 Eos # (Auto) 0.0 10^3/uL (0.0-0.8) 05/20/23 05:53 Baso # (Auto) 0.0 10^3/uL (0.0-0.1) 05/20/23 05:53 Nucleated RBC % (auto) 0 % 05/20/23 05:53 Nucleated RBCs # 0.0 /100WBC 05/20/23 05:53 Sodium 142 mmol/L (136-145) 05/20/23 05:53 Potassium 3.0 mmol/L (3.5-5.1) L 05/20/23 05:53 Chloride 107 mmol/L (98-107) 05/20/23 05:53 Carbon Dioxide 25 mmol/L (22-29) 05/20/23 05:53 Anion Gap 13.0 (5-19) 05/20/23 05:53 BUN 19 mg/dL (8-23) 05/20/23 05:53 Creatinine 0.6 mg/dL (0.5-0.9) 05/20/23 05:53 GFR Calculation Not Reportable 05/20/23 05:53 Glucose 77 mg/dL (65-115) 05/20/23 05:53 Calculated Osmolality 295 mOsm/kg (285-295) 05/20/23 05:53 Calcium 7.0 mg/dL (8.5-10.5) L 05/20/23 05:53 Magnesium 2.0 mg/dL (1.7-2.3) 05/18/23 05:20 Iron 107 ug/dL (37-145) 05/18/23 05:20 TIBC 200 mcg/dl 05/18/23 05:20 % Saturation 53.5 % (20-50) H 05/18/23 05:20 Unsat Iron Binding 93 ug/dL (112-347) L 05/18/23 05:20 Total Bilirubin 0.4 mg/dL (0.15-1.2) 05/17/23 17:03 AST 21 U/L (0-32) 05/17/23 17:03 ALT 25 U/L (0-33) 05/17/23 17:03 Alkaline Phosphatase 85 U/L (35-105) 05/17/23 17:03 Creatine Kinase 155 U/L (26-192) 05/17/23 17:03 Troponin T Baseline 58 ng/L (0-10) H 05/17/23 17:03 Troponin T 120 Minute 54.91 ng/L (0-10) H 05/17/23 18:36 Delta Troponin T -3.09 ABS# (0-10) L 05/17/23 18:36 Troponin T Hi Sens 6Hr 60.55 ng/L (0-10) H 05/17/23 23:05 Troponin T Hi Sens 6Hr Delta 2.55 ng/L (0-12) 05/17/23 23:05 C-Reactive Protein 29.1 mg/L (0.0-4.9) H 05/18/23 05:20 Total Protein 4.2 g/dL (6.6-8.7) L 05/17/23 17:03 Albumin 2.5 g/dL (3.5-5.2) L 05/17/23 17:03 Globulin 1.7 g/dL (1.3-4.6) 05/17/23 17:03 Vitamin B12 307 pg/mL (232-1245) 05/17/23 17:03 Procalcitonin 0.09 ng/mL (0-0.5) 05/17/23 17:03 TSH 4.54 uIU/mL (0.27-4.20) H 05/17/23 17:03 Serum Ketones Negative (Negative) 05/17/23 17:03 Blood Type O Positive 05/17/23 17:54 Rho(D) Type Rh positive 05/17/23 17:54 Antibody Screen Negative 05/17/23 17:54 Crossmatch See Detail 05/17/23 17:54 Vitals Last Vital Signs Temp 98.0 F 05/20/23 08:03 Pulse 82 05/20/23 08:03 Resp 18 05/20/23 09:30 BP 116/74 05/20/23 08:03 Pulse Ox 94 05/20/23 09:30 O2 Del Method Room Air 05/20/23 08:03 Discharge Plan Discharge Patient Disposition: Xfer SNF Condition: Stable Prescriptions: New cyanocobalamin (vitamin B-12) 1,000 mcg capsule 1,000 mcg PO DAILY Qty: 90 0RF potassium chloride 10 mEq tablet extended release 10 meq PO DAILY Qty: 7 0RF sennosides-docusate sodium [Stool Softener-Laxative] 8.6-50 mg Tablet 1 tab PO DAILY Qty: 15 0RF Ferrex 150 Forte 150-25-1 mg-mcg-mg Capsule 1 cap PO DAILY Qty: 15 0RF No Action No Known Home Medications Referrals: Jenni Camarillo PA [Primary Care Provider] - Patient Instructions: Opioid Safety Discharge Attestations Time Spent in Discharge Care*: greater than 30 min Quality Metrics Clinical Quality Measures [ No reported AMI, CVA or VTE this stay] Coding Level of Care Code Acute Code for Chg Fwd Diagnoses Thrombocytopenia D69.6 Failure to thrive Protein calorie malnutrition E46 Hepatic cyst K76.89 Hypokalemia E87.6 Dehydration E86.0 Acute hypernatremia E87.0 Ovarian mass N83.8 Anemia, macrocytic D53.9 Hypoalbuminemia E88.09 Delirium R41.0 Dementia F03.90
[2023-05-20 11:38] VITALS: BP 96/58; PULSE 85; RESP 18; TEMP 36.8; O2SAT 96
[2023-05-20 15:01] LABS: SARS Covid-2 Antigen negative (Negative)
[2023-05-20 15:30] VITALS: BP 96/58; PULSE 85; RESP 18; TEMP 36.8; O2SAT 96
== END 2023-05-20 15:30 | disposition skilled nursing facility (03) | DRG 640 ==
LOC: ER 17:00 → MEDSURG 18:37
PROVIDERS: Admitting Provider Internal Medicine; Emergency Provider Family Medicine; PCP Physician Assistant; Visit Provider Internal Medicine
DX: E86.0 Dehydration (principal); G93.41 Metabolic encephalopathy; Z68.1 Body mass index [BMI] 19.9 or less, adult; E46 Unspecified protein-calorie malnutrition; R64 Cachexia; F05 Delirium due to known physiological condition; E87.1 Hypo-osmolality and hyponatremia; E87.6 Hypokalemia; E88.09 Other disorders of plasma-protein metabolism, not elsewhere classified; R60.0 Localized edema; R29.6 Repeated falls; R63.0 Anorexia; Z66 Do not resuscitate; N83.9 Noninflammatory disorder of ovary, fallopian tube and broad ligament, unspecified; K76.89 Other specified diseases of liver; D69.6 Thrombocytopenia, unspecified; M81.0 Age-related osteoporosis without current pathological fracture; M54.50 Low back pain, unspecified; J45.909 Unspecified asthma, uncomplicated; M19.90 Unspecified osteoarthritis, unspecified site; F03.90 Unspecified dementia, unspecified severity, without behavioral disturbance, psychotic disturbance, mood disturbance, and anxiety; R62.7 Adult failure to thrive
CPT/HCPCS: 36415; 36430; 71045; 74177; 80048; 80053; 82009; 82550; 82607; 83540; 83550; 83735; 84145; 84443; 84484; 85025; 86140; 86850; 86900; 86920; 87426; 92523; 92610; 93005; 96360; 96361; 96372; 97161; 97166; 97530; 97535; 99285; C9113; J3420; J7030; J7042; J7070; P9016; Q9967

== ENCOUNTER 2024-05-06 20:06 | Inpatient (IN) | payer MEDICARE, OTHER, SELFPAY ==
[2024-05-06] VITALS (19 sets, daily range): BP systolic 83–117; BP diastolic 53–73; PULSE 95–134; RESP 18–56; TEMP 38.8; O2SAT 79–99; BMI 18.3
--- NOTE | 2024-05-06 20:26 | XRR_ITS ---
PROCEDURE INFORMATION: Exam: XR Chest Exam date and time: 05/06/2024 8:40 PM Age: 83 years old Clinical indication: Shortness of breath; Respiratory distress; SOB TECHNIQUE: Imaging protocol: Radiologic exam of the chest. Views: 1 view. COMPARISON: CR XR chest 1V portable [id number] 05/19/2023 11:02 AM FINDINGS: Lungs: Unremarkable lungs. Pleural spaces: Unremarkable. Heart/Mediastinum: Nonenlarged heart. Bones/joints: No acute fracture. Gastrointestinal tract: Partially visualized gas-filled distended loops of bowel in the upper abdomen similar to prior exam. XR/XR chest 1V portable [id number] IMPRESSION: 1. Unremarkable lungs. 2. Partially visualized gas-filled distended loops of bowel in the upper abdomen.
[2024-05-06 20:46] LABS: Basophils % 0.1 %; Eosinophils % 0.4 %; Hematocrit 27.9 % (36-47); Lymphocytes # 1.2 10^3/uL (0.8-4.8); Lymphocytes % 18.2 %; Mean Corpuscular HGB Conc 26.9 g/dL (30-55); Mean Corpuscular Hemoglobin 19.9 pg (27-33); Mean Platelet Volume 11.4 fL (7.4-10.4); Monocytes # 0.7 10^3/uL (0.2-0.9); Monocytes % 10.3 %; Neutrophils # 4.73 10^3/uL (1.8-7.7); Neutrophils % 70.9 %; Nucleated Red Blood Cells % 0 %; Platelet Count 139 10^3/cmm (157-399); Red Blood Count 3.77 10^6/uL (3.85-5.65); Red Cell Distribution Width 19.4 % (12.1-15.1); White Blood Count 6.69 10^3/uL (3.29-11.43)
[2024-05-06] MEDS: ipratropium-albuterol 3 mL Neb INHALATION (20:48)
[2024-05-06 20:59] LABS: Troponin(5th) Baseline 36 ng/L (0-10)
[2024-05-06] MEDS: haloperidol inj 5 mg/mL INJ 1 mL 2 MG IVP (21:01)
[2024-05-06] MEDS: sodium chloride 0.9% 1,360.77 ML 1360.77 ML IV (21:03)
[2024-05-06 21:08] LABS: Alanine Aminotransferase < 5 U/L (0-33); Albumin Level 3.8 g/dL (3.5-5.2); Alkaline Phosphatase 86 U/L (35-105); Anion Gap 19.9 (5-19); Blood Urea Nitrogen 16 mg/dL (8-23); Calcium 9.1 mg/dL (8.5-10.5); Carbon Dioxide 21 mmol/L (22-29); Chloride 101 mmol/L (98-107); Creatinine Clr Calc Pharmacy 40.5463; Globulin 2.8 g/dL (1.3-4.6); Glucose 137 mg/dL (65-115); Osmolality Calculated 287 mOsm/kg (285-295); Potassium 4.9 mmol/L (3.5-5.1); Sodium 137 mmol/L (136-145); Total Bilirubin 0.9 mg/dL (0.15-1.2); Total Protein 6.6 g/dL (6.6-8.7)
[2024-05-06 21:09] LABS: Aspartate Amino Transferase 25 U/L (0-32)
[2024-05-06 21:11] LABS: Lactic Sepsis W/Reflex 5.1 mmol/L (0.5-2.2)
[2024-05-06 21:14] LABS: NT Pro B Type Natriuretic Pept 1596 pg/mL (0-450)
--- NOTE | 2024-05-06 21:18 | ED_ITS ---
HPI - SOB/Dyspnea 2 General: Chief Complaint: Shortness of Breath/Dyspnea Stated Complaint: resp distress Time Seen by Provider: 05/06/24 20:09 History of Present Illness: HPI Narrative: 83-year-old female [facility] She has a history of COPD and dementia evidently. She has a fever. [facility] the [facility]. She presents via ambulance having had oxygen, which she does not usually take, 2 breathing treatments, 10 mg of dexamethasone IV. She is still struggling to breathe. Related Data Previous Rx's ?Medication ?Instructions ?Recorded cyanocobalamin (vitamin B-12) 1,000 mcg PO DAILY #90 c aps 05/20/23 1,000 mcg capsule iron polysacch cplx 150 mg 1 cap PO DAILY #15 caps 10/05 iron-vit B12 25 mcg-folic acid 1 mg capsule (Ferrex) potassium chloride 10 mEq 10 meq PO DAILY #7 tabs 10/05 tablet,extended release sennosides 8.6 mg-docusate sodium 1 tab PO DAILY #15 t abs 05/20/23 50 mg tablet (Stool Softener-Laxative) Allergies Allergy/AdvReac Type Severity Reaction Status Date / Time No Known Allergies Allergy Verified 06/04/20 14:55 PFSH ED 2 PFSH: Medical History Dementia Dehydration Protein calorie malnutrition Failure to thrive Thrombocytopenia Hypokalemia Hypoalbuminemia Anemia, macrocytic Ovarian mass UTI (urinary tract infection) Abnormal urinalysis 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 Osteoarthritis Asthma Lower back pain Osteoporosis Surgical History No history of previous surgery Family History Father CAD (coronary artery disease) Overweight Diabetes Mother Dementia Brother Lung disease Smoker Other Hypertension Social History Smoking and tobacco/nicotine status: never used tobacco/nicotine Alcohol intake: never Substance/Drug Use: never Lives independently: Yes Household members: other Details: She lives alone Housing: House Physical Exam 2 Const: EXAM LIMITATIONS: altered mental status GENERAL APPEARANCE: well kempt, ill appearing and frail appearing ORIENTATION/CONSCIOUSNESS: Yes awake, Yes oriented to person and Yes confused; not oriented to place and not oriented to time HENMT: COMMON NORMALS: normocephalic, atraumatic and Normal external nose present HEAD & SCALP: normocephalic and atraumatic FACE & SINUS: normal facial exam and face symmetric NOSE: Normal external nose present Eye: COMMON NORMALS: Equal, round and reactive pupils present and EOMs intact bilaterally PUPIL: Yes Equal, round and reactive pupils present Resp: EFFORT & INSPECTION: Yes tachypneic Cardio: COMMON NORMALS: regular rhythm RATE: tachycardic RHYTHM: regular rhythm Neuro: SENSORIUM/ORIENTATION: Yes oriented to person, No oriented to place and No oriented to time Psych: APPEARANCE: Yes well kempt Course 2 Vital Signs: Vital signs: Vital Signs Temperature 102 F H 05/06/24 20:08 Pulse Rate 112 H 05/06/24 23:35 Respiratory Rate 21 H 05/06/24 23:35 Blood Pressure 103/56 05/06/24 23:47 Pulse Oximetry 89 L 05/06/24 23:35 Oxygen Delivery Me thod BiPAP 05/06/24 21:37 Fraction of Inspir ed Oxygen 40 05/06/24 21:37 MDM - SOB/Dyspnea Medical Decision Making This patient is significantly confused, and mildly combative. She is placed in soft restraints because of this. Saturations are marginal even on 5 L nasal cannula. She is obviously breathing hard. She is placed on BiPAP, with good improvement in her breathing status. Initial blood pressures were mildly soft, but current pressure is 103/66. She was initially quite tachycardic, but this is improved to some degree. Her hemoglobin is 7.5. White blood cell count is 6.7. BNP is 1600. Troponin is 36. D-dimer was drawn but had to be canceled. Initial lactic acid is 5.1. She is given a sepsis bolus. She is given antibiotics after blood cultures. COVID flu and RSV are pending.. Patient is positive for both influenza A and COVID-19. Lab Data 05/06/24 20:36 05/06/24 20:36 Labs/Radiology: Radiology Impressions Chest X-Ray 05/06/24 20:26 IMPRESSION: 1. Unremarkable lungs. 2. Partially visualized gas-filled distended loops of bowel in the upper abdomen. Laboratory Results WBC 6.69 10^3/uL (3.29-11.43) 05/06/24 20: RBC 3.77 10^6/uL (3.85-5.65) L 05/06/24 20:36 Hgb 7.50 g/dL (11.27-16.99) L 05/06/24 20:36 Hct 27.9 % (36-47) L 05/06/24: MCV 74.0 fl (85-98) L 05/06/24 20: MCH 19.9 pg (27-33) L 05/06/24: MCHC 26.9 g/dL (30-55) L 05/06/24: RDW 19.4 % (12.1-15.1) H 05/06/24 20:36 Plt Count 139 10^3/cmm (157-399) L 05/06/24: MPV 11.4 fL (7.4-10.4) H 05/06/24: Neut % (Auto) 70.9 % 05/06/24: Lymph % (Auto) 18.2 % 05/06/24: [place] % (Auto) 10.3 % 05/06/24: Eos % (Auto) 0.4 % 05/06/24: Baso % (Auto) 0.1 % 05/06/24: Neut # (Auto) 4.73 10^3/uL (1.8-7.7) 05/06/24: Lymph # (Auto) 1.2 10^3/uL (0.8-4.8) 05/06/24:36 [place] # (Auto) 0.7 10^3/uL (0.2-0.9) 05/06/24: Eos # (Auto) 0.0 10^3/uL (0.0-0.8) 05/06/24 20:36 Baso # (Auto) 0.0 10^3/uL (0.0-0.1) 05/06/24: Nucleated RBC % (auto) 0 % 05/06/24: Nucleated RBCs # 0.0 /100WBC 02/22/25 20:36 D-Dimer 2.48 ug/mLFEU (0-0.59) H 05/06/24 21:21 Specimen Type Arterial 05/06/24 22:04 Sample Site Brachial, right 05/06/24 22:04 ABG pH 7.38 (7.35-7.45) 05/06/24 22:04 ABG pCO2 36.0 mmHg (35-45) 05/06/24 22:04 ABG pO2 80.5 mmHg (80.0-100.0) 05/06/24 22:04 ABG PO2/FiO2 Ratio 201 05/06/24 22:04 ABG HCO3 21.1 mmol/L (22-26) L 05/06/24 22:04 ABG Base Excess -3.7 mmol/L (-2.0-2.0) L 05/06/24 22:04 Edgar Test N/a 05/06/24 22:04 Hematocrit 21.6 % (37-47) L 05/06/24 22:04 Hgb O2 Saturation 93.7 % (95-100) L 05/06/24 22:04 Carboxyhemoglobin 1.1 %THgb (0.4-20.1) 05/06/24 22:04 Methemoglobin 0.5 % (0.4-1.5) 05/06/24 22:04 Total Hemoglobin 7.0 g/dL (12-16) L 05/06/24 22:04 O2 Delivery Device Bipap 05/06/24 22:04 FiO2 40.0 % 05/06/24 22:04 Processor Solid Propellant ID Jean Carlos 05/06/24 22:04 Sodium 137 mmol/L (136-145) 05/06/24 20:36 Potassium 4.9 mmol/L (3.5-5.1) 05/06/24 20:36 Chloride 101 mmol/L (98-107) 05/06/24 20:36 Carbon Dioxide 21 mmol/L (22-29) L 05/06/24 20:36 Anion Gap 19.9 (5-19) H 05/06/24 20:36 BUN 16 mg/dL (8-23) 05/06/24 20:36 Creatinine 0.7 mg/dL (0.5-0.9) 05/06/24 20:36 GFR Calculation Not Reportable 05/06/24 20:36 Glucose 137 mg/dL (65-115) H 05/06/24 20:36 Calculated Osmolality 287 mOsm/kg (285-295) 05/06/24 20:36 Lactic Acid 5.1 mmol/L (0.5-2.2) H* 05/06/24 20:36 Lactic Acid (Sepsis) 2.6 mmol/L (0.5-2.2) H 05/06/24 22:20 Calcium 9.1 mg/dL (8.5-10.5) 05/06/24 20:36 Total Bilirubin 0.9 mg/dL (0.15-1.2) 05/06/24 20:36 AST 25 U/L (0-32) 05/06/24 20:36 ALT < 5 U/L (0-33) 05/06/24 20:36 Alkaline Phosphatase 86 U/L (35-105) 05/06/24 20:36 Troponin T Baseline 36 ng/L (0-10) H 05/06/24 20: Troponin T 120 Minute 40.30 ng/L (0-10) H 05/06/24 22:20 Delta Troponin T 4.30 ABS# (0-10) 05/06/24 22: NT-Pro-B Natriuret Pep 1596 pg/mL (0-450) H 05/06/24 20:36 Total Protein 6.6 g/dL (6.6-8.7) 05/06/24 20:36 Albumin 3.8 g/dL (3.5-5.2) 05/06/24 20: Globulin 2.8 g/dL (1.3-4.6) 05/06/24 20:36 Procalcitonin 0.13 ng/mL (0-0.5) 05/06/24 20:36 Influenza A (PCR) Positive (Negative) 05/06/24 20: Influenza Type B (PCR) Negative (Negative) 05/06/24 20: RSV (PCR) Negative (Negative) 05/06/24 20:03 SARS-CoV-2 (PCR) Positive (Negative) A 05/06/24 20:03 All radiology interpretation(s) finalized by discharge Critical Care Time 2 Critical Care Time: Critical Care Time: Yes Total Critical Care Time: 45 Attestation: This case had a high probability of a clinically significant, sudden, or life threatening deterioration of this patient's condition which required my full and direct attention, intervention and personal management. Time is independent of any procedures performed. Discharge Plan Discharge Patient Disposition: Admitted As Inpatient Admit Provider: Aramis Shea Clinical Impression: Sepsis, COVID, Influenza A, Acute hypoxemic respiratory failure Condition: Serious Coding Level of Care Code ED Park Guard for Gabrielle Turner
[2024-05-06 21:20] LABS: Reflex Lactate Order REFLEX LACTIC ORDERD
--- NOTE | 2024-05-06 21:23 | ECG_ITS ---
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: : 1940 Requested By: Isauro Ford Order Number: [id number] Esme MD: NASIM NIEVES Measurements Intervals Garvin Rate: 111 P: 0 MO: 0 QRS: 30 QRSD: 172 T: 69 QT: 343 QTc: 468 Interpretive Statements ATRIAL FIBRILLATION INDETERMINATE AXIS RIGHT BUNDLE BRANCH BLOCK [120+ ms QRS DURATION, UPRIGHT V1, 40+ ms S IN I/aVL/V4/V5/V6] Compared to ECG 05/17/2023 18:31:28 Indeterminate axis now present Right bundle-branch block now present Electronically Signed On 05-09-2024 23:41:15 PROCESS TECHNICIAN by NASIM NIEVES [email or web address]
--- NOTE | 2024-05-06 21:32 | P.HP_ITS ---
Providers/Chief Complaint 2 Primary Care Provider: Jenni Camarillo Chief Complaint: resp distress History of Present Illness Dilcia Zimmerman is a 83 year old female with history of dementia, failure to thrive, protein calorie malnourishment, pressure ulcers, her daughter in [place], she is a older daughter phone number is [phone] presented to the hospital today for worsening shortness of breath. Patient noted provide much history, she is fighting the BiPAP at this point I called [facility] custodial to get more information, at baseline patient is in memory unit, as per the [facility] nursing staff there is a lot of flu in the facility, patient has been sick for last 2 to 3 days today she was very short of breath and hypoxic, desaturating, at baseline patient is a lot of verbal redirection and motivation to encourage eating, most of the time she is combative, suffers from sundowning as well. In the ER she tested positive for COVID and influenza A, requiring BiPAP to decrease work of breathing she has received septic bolus lactic acid was 5.1 which improved with IV fluid hydration Review of Systems 2 General: Reports: ROS unobtainable due to medical condition Medications/Allergies Home Medications ?Medication ?Instructions ?Recorded ?Confirmed ?Last Taken ?Type cyanocobalamin (vitamin B-12) 1,000 mcg PO DAILY #90 c aps 05/20/23 Unknown Rx 1,000 mcg capsule iron polysacch cplx 150 mg 1 cap PO DAILY #15 caps 10/05 Unknown Rx iron-vit B12 25 mcg-folic acid 1 mg capsule (Ferrex) potassium chloride 10 mEq 10 meq PO DAILY #7 tabs 10/05 Unknown Rx tablet,extended release sennosides 8.6 mg-docusate sodium 1 tab PO DAILY #15 t abs 05/20/23 Unknown Rx 50 mg tablet (Stool Softener-Laxative) Allergies Allergy/AdvReac Type Severity Reaction Status Date / Time No Known Allergies Allergy Verified 06/04/20 14:55 PFSH Acute 2 PFSH: Medical History Dementia Dehydration Protein calorie malnutrition Failure to thrive Thrombocytopenia Hypokalemia Hypoalbuminemia Anemia, macrocytic Ovarian mass UTI (urinary tract infection) Abnormal urinalysis 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 Osteoarthritis Asthma Lower back pain Osteoporosis Surgical History No history of previous surgery Family History Father CAD (coronary artery disease) Overweight Diabetes Mother Dementia Brother Lung disease Smoker Other Hypertension Social History Smoking and tobacco/nicotine status: never used tobacco/nicotine Alcohol intake: never Substance/Drug Use: never Lives independently: Yes Household members: other Details: She lives alone Housing: House Vitals/I&O/Wt Last Vital Signs Temp 102 F H 05/06/24 20:08 Pulse 111 H 05/06/24 21:13 Resp 18 05/06/24 21:13 BP 113/63 05/06/24 21:13 Pulse Ox 93 05/06/24 21:13 O2 Del Method BiPAP 05/06/24 21:13 FiO2 40 05/06/24 21:13 05/06/24 05/06/24 05/06/24 06:59 14:59 22:59 Intake Total 0 / 0 Balance 0 / 0 Weight last 48 hrs Weight 45.359 kg Physical Exam 2 Narrative: Oriented to herself Combative On BiPAP Blood pressure 101/63 mmHg AO x 1 GCS 15 Able to move her extremities Looks malnourished Clinically does not look fluid overloaded Bilateral breath sounds with rhonchi S1, S2 sinus tachycardia Abdomen soft Lower extremity no edema Sepsis: Is patient septic: Yes Focused sepsis exam performed: Yes F ocused sepsis exam: Capillary refill less than 3 sec. No skin mottling Confused Tachycardic Low blood pressure noted Patient is febrile Peripheral pulses intact Date exam was performed: 05/06/24 Time exam was performed: 23:23 Data 05/06/24 20:36 05/06/24 20:36 Micro: Microbiology 05/06/24 20:36 Blood Culture - Preliminary Blood SPECIMEN COLLECTED A&P Assessment and plan (1) Anemia: (2) Pelvic mass: (3) Adult failure to thrive: (4) Thrombocytopenia: (5) Sepsis: (6) COVID: (7) Influenza A: Plan Sepsis related to COVID-19 and influenza A viral pneumonia Patient is a septic bolus Concern for super imposed bacterial infection Check procalcitonin I will keep her on ceftriaxone Check D-dimer as well Acute hypoxia: Currently on BiPAP to decrease work of breathing Sepsis metabolic encephalopathy, delirium with underlying dementia Related to sepsis and pneumonia Patient able to move her extremities I do not see any focal deficits Patient suffers of sundowning as well as per the nursing staff Dehydration: Poor p.o. intake at the custodial Clinically does not look fluid overloaded Patient is combative, will try to hydrate for next 8 to 10 hours with IV fluids Currently patient is on BiPAP to decrease work of breathing I will keep her on pur?ed diet for now which can be advanced once she is more cooperative DNR/DNI DVT prophylaxis heparin Chronic anemia: And thrombocytopenia: Monitor for now PDMP PDMP Reviewed: Not Reviewed Attestations 2 Medical Necessity Statement*: More than 2 midnights anticipated Coding Level of Care Code Acute Code for Chg Fwd Diagnoses Anemia D64.9 Pelvic mass R19.00 Adult failure to thrive R62.7 Thrombocytopenia D69.6 Sepsis A41.9 COVID U07.1 Influenza A J10.1
[2024-05-06] MEDS: piperacillin-tazobactam 4.5 GM in sodium chloride 0.9% (plus) 50 ML IV (21:44)
--- NOTE | 2024-05-06 21:57 | PC.NURSE ---
PT WAS CONFUSED AND VERY COBATIVE. PT WAS PUT IN RESTRAINTS FROM [id number]. RESTRAINTS WERE THEN REMOVED. PT IS RESTING IN BED AT THIS TIME.
[2024-05-06 22:09] LABS: Influenza A POSITIVE (Negative); Influenza B NEGATIVE (Negative); Respiratory Syncytial Virus Ce NEGATIVE (Negative)
[2024-05-06 22:16] LABS: ABG PH Result 7.38 (7.35-7.45); Arterial Blood Gas Hematocrit 21.6 % (37-47); Base Excess ABG -3.7 mmol/L (-2.0-2.0); Blood Gas Operator Identificat SAM; Blood Gas Sample Site Brachial, right; Blood Gas Sample Type Arterial; Carboxyhemoglobin 1.1 %THgb (0.4-20.1); HCO3 ABG 21.1 mmol/L (22-26); HGB O2 Sat 93.7 % (95-100); Methemoglobin 0.5 % (0.4-1.5); Oxygen Device BIPAP; PO2 ABG 80.5 mmHg (80.0-100.0); PO2 FiO2 Ratio Arterial Blood 201
[2024-05-06 22:16] LABS: SARS-CoV-2 PCR Positive (Negative)
--- NOTE | 2024-05-06 22:26 | ECG_ITS ---
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: : 1940 Requested By: Isauro Ford Order Number: [id number] Reading MD: NASIM NIEVES Measurements Intervals [facility] Rate: 84 P: 10 AR: 153 QRS: -21 QRSD: 96 T: -22 QT: 381 QTc: 451 Interpretive Statements SINUS RHYTHM BORDERLINE LEFT AXIS DEVIATION [QRS AXIS < -20] LOW QRS VOLTAGE IN EXTREMITY LEADS [QRS DEFLECTION < 0.5 mV IN LIMB LEADS] NONSPECIFIC ST & T-WAVE ABNORMALITY Compared to ECG 05/06/2024 21:23:12 Low QRS voltage now present T-wave abnormality now present Indeterminate axis no longer present Right bundle-branch block no longer present Electronically Signed On 05-09-2024 23:51:12 DOCK GUARD by NASIM NIEVES [email or web address]
[2024-05-06 22:33] LABS: Procalcitonin 0.13 ng/mL (0-0.5)
[2024-05-06 22:45] LABS: Lactic Acid level (Lactate) 2.6 mmol/L (0.5-2.2)
[2024-05-06 22:46] LABS: D Dimer 2.48 ug/mLFEU (0-0.59)
[2024-05-06] MEDS: ketorolac 30 mg/mL INJ 15 MG IVP (23:07)
[2024-05-06] MEDS: heparin 5,000 unit/mL INJ 1 mL 5000 UNIT SUBCUT (23:07)
[2024-05-07] VITALS (21 sets, daily range): BP systolic 90–134; BP diastolic 53–83; PULSE 68–103; RESP 13–25; TEMP 36.3–37.2; O2SAT 92–100; BMI 18.3
[2024-05-07] MEDS: remdesivir 200 MG in sodium chloride 0.9% (100 ml) 60 ML 100 MG IV (01:49)
[2024-05-07 02:15] LABS: Basophils % 0.3 %; Eosinophils # 0.1 10^3/uL (0.0-0.8); Eosinophils % 3.4 %; Hematocrit 23.9 % (36-47); Lymphocytes # 0.1 10^3/uL (0.8-4.8); Lymphocytes % 3.7 %; Mean Corpuscular HGB Conc 26.8 g/dL (30-55); Mean Corpuscular Hemoglobin 19.8 pg (27-33); Monocytes # 0.1 10^3/uL (0.2-0.9); Monocytes % 3.4 %; Neutrophils # 3.11 10^3/uL (1.8-7.7); Neutrophils % 88.9 %; Nucleated Red Blood Cells % 0 %; Platelet Count 139 10^3/cmm (157-399); Red Blood Count 3.23 10^6/uL (3.85-5.65); Red Cell Distribution Width 19.3 % (12.1-15.1)
--- NOTE | 2024-05-07 02:26 | ECG_ITS ---
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
[2024-05-07 02:32] LABS: Troponin 5 6HR 43.94 ng/L (0-10); Troponin 5 6HR Delta 7.94 ng/L (0-12)
[2024-05-07 02:34] LABS: Anion Gap 15.8 (5-19); Blood Urea Nitrogen 18 mg/dL (8-23); C Reactive Protein 22.7 mg/L (0.0-4.9); Calcium 8.1 mg/dL (8.5-10.5); Carbon Dioxide 19 mmol/L (22-29); Chloride 106 mmol/L (98-107); Creatinine Clr Calc Pharmacy 40.5463; Glucose 173 mg/dL (65-115); Magnesium 1.9 mg/dL (1.7-2.3); Osmolality Calculated 290 mOsm/kg (285-295); Potassium 3.8 mmol/L (3.5-5.1); Sodium 137 mmol/L (136-145)
--- NOTE | 2024-05-07 04:00 | PC.NURSE ---
This nurse attempted to contact [facility] x2 to finish admission and get further baseline updates, with no answer.
[2024-05-07] MEDS: ipratropium-albuterol 3 mL Neb INHALATION (09:13)
[2024-05-07] MEDS: cefTRIAXone 1,000 MG in sodium chloride 0.9% (plus) 50 ML 100 MG IV (09:52)
[2024-05-07] MEDS: dexamethasone 10 mg/mL INJ 6 MG PO (09:53)
[2024-05-07 10:34] LABS: Estmated Average Glucose 108; Hemoglobin A1C 5.4 % (4.0-6.0)
[2024-05-07 10:37] LABS: Procalcitonin 0.31 ng/mL (0-0.5); Thyroid Stimulating Hormone 1.17 uIU/mL (0.27-4.20); Vitamin B12 990 pg/mL (232-1245)
--- NOTE | 2024-05-07 10:39 | PC.NURSE ---
Hold Heparin Received orders to hold 1000 dose of subcut heparin per patient provider.
[2024-05-07 10:48] LABS: Iron 9 ug/dL (37-145); Percent Saturation 2.5 % (20-50); Total Iron Binding Capacity 356 mcg/dl; Unsaturated Iron Binding 347 ug/dL (112-347)
[2024-05-07] MEDS: pantoprazole 40 mg SDV IVP ×2 (11:04→22:35)
[2024-05-07] MEDS: oseltamivir phosphate 30 mg Capsule PO (11:05)
[2024-05-07] MEDS: ipratropium 0.5 mg/2.5 mL Neb INHALATION ×2 (14:11→20:33)
[2024-05-07] MEDS: levalbuterol 0.63 mg/3 mL Neb INHALATION ×2 (14:11→20:33)
--- NOTE | 2024-05-07 16:49 | PC.NURSE ---
LAVONNE Boggs stated patient's blood was finished and her IV was needing to be flushed. This nurse entered room and patient was resting in bed with 1:1 drug safety physician present. This nurse informed patient that I was going to be flushing her IV. As IV began flushing, patient started yelling and pulling her arm away. This nurse attempted to feel if IV was infiltrating and patient started acting like she was going to start hitting this nurse. This nurse was trying to tell patient that I needed to unhook the flush, but patient continued yelling, Quit! This nurse was hooking vital machine up to patient's blood pressure cuff attached to patient's right calf and patient yelled, Quit! What are you doing to me?! Is that thing on fire?! as she was pulling her leg away. This nurse informed the patient I was getting her blood pressure. Patient asked hatefully, Well why aren't you writing anything down and why do you need them. I need to know what they are, too, so I can report everything. This nurse educated the patient that her vital signs were needed to monitor for any changes or reactions after receiving blood.
--- NOTE | 2024-05-07 17:26 | P.PN_ITS ---
Subjective 2 Subjective: Admitted overnight. H&P as appreciated. On examination patient sitting comfortably in bed. Fairly confused. She states she is not sure where she is and why she is in the hospital. Seems to be at her baseline mentation. Denies any nausea, vomiting, headache. Currently on 2 L of oxygen supplementation. Denies any abdominal pain. Vitals/I&O/Wt Last Vital Signs Temp 98.2 F 05/07/24 16:14 Pulse 88 05/07/24 16:46 Resp 17 05/07/24 16:46 BP 129/63 05/07/24 16:46 Pulse Ox 96 05/07/24 16:46 O2 Del Method Nasal Cannula 05/07/24 15:54 O2 Flow Rate 3 05/07/24 14:11 FiO2 40 05/07/24 03:05 05/07/24 05/07/24 05/07/24 06:59 14:59 22:59 Intake Total 1510.77 / 1510.77 890 / 890 250 / 1140 Balance 1510.77 / 1510.77 890 / 890 250 / 1140 Weight last 48 hrs Weight 46.765 kg Weight 45.359 kg Weight 45.359 kg Physical Exam 2 Narrative: General: No acute distress,AO x 1 to 2, dehydrated, thin built HEENT: PERRLA, pupils bilaterally equal and reactive Chest: Bilateral bronchial breath sounds all lung singh occasional rhonchi diffuse all over lung singh CVS: S1-S2 regular, no murmurs, no tachycardia, no gallops, no rubs Abdomen: Soft, nontender, no organomegaly, bowel sounds present Neuro: No focal deficits, no facial deformity, AO x3, power 5/5 in all limbs Data 05/07/24 02:09 05/07/24 02:09 Micro: Microbiology 05/06/24 22:20 Blood Culture - Preliminary Blood SPECIMEN COLLECTED 05/06/24 20:36 Blood Culture - Preliminary Blood SPECIMEN COLLECTED A&P Assessment and plan (1) Acute hypoxemic respiratory failure: Most likely COPD exacerbation in setting of influenza and COVID-19. Supplementation keeping saturation over 88%. Aspiration precaution. (2) Influenza A: Supportive treatment. Start on Tamiflu 30 mg twice daily as per creatinine clearance. (3) COVID: Hypoxia secondary to COVID-19 pneumonia: Mild to moderate disease. Oxygen supplementation keeping saturation over 88%. Dexamethasone 6 mg daily. Remdesivir to finish a 5-day course. DuoNeb every 6 hour, budesonide twice daily Pulmonary toilet with incentive spirometry flutter valve. We will monitor inflammatory markers including CRP every 48 hours. Check D-dimer. Unfortunately patient has significant anemia. Will hold off on starting anticoagulation. Check sputum culture, procalcitonin, blood culture. Procalcitonin negative. Low suspicion of bacterial infection for now. For now continue with IV ceftriaxone 1 g daily along with azithromycin for atypical coverage. Given hypoxia will try to keep patient as negative as possible. Lasix as per fluid status. Strict input output charting, daily weights. (4) Anemia: Significant anemia. Hemoglobin down to 6.4. Acute on chronic. Most recently 7.5 back in 05/06/2024. Patient seems asymptomatic. Check iron panel, vitamin B12 and folate levels. 1 unit of PRBC transfusion. Check stool for occult blood. Start on IV iron supplementation if iron deficiency. Start on Protonix IV twice daily (5) Adult failure to thrive: (6) COPD (chronic obstructive pulmonary disease): Plan CODE STATUS: Reviewed paperwork. DNR/DNI. Dysphagia level 4 diet. Speech evaluation and advance accordingly. Protonix will be sufficient for PUD prophylaxis SCD for DVT prophylaxis. Hold off on medical prophylaxis given significant anemia. PDMP PDMP Reviewed: Not Reviewed Attestations 2 Medical Necessity Statement*: Requires further hospitalization for manage significant anemia requiring blood transfusion, hypoxia in setting of COPD exacerbation due to influenza A and COVID-19. Diagnoses Acute hypoxemic respiratory failure J96.01 Influenza A J10.1 COVID U07.1 Anemia D64.9 Adult failure to thrive R62.7 COPD (chronic obstructive pulmonary disease) J44.9
[2024-05-07] MEDS: remdesivir 100 MG in sodium chloride 0.9% (100 ml) 80 ML IV (18:57)
[2024-05-07 20:19] LABS: Eosinophils # 0.1 10^3/uL (0.0-0.8); Eosinophils % 1.4 %; Hematocrit 30.2 % (36-47); Lymphocytes # 0.2 10^3/uL (0.8-4.8); Lymphocytes % 3.7 %; Mean Corpuscular HGB Conc 28.8 g/dL (30-55); Mean Corpuscular Hemoglobin 21.8 pg (27-33); Mean Corpuscular Volume 75.7 fl (85-98); Mean Platelet Volume 11.4 fL (7.4-10.4); Monocytes # 0.3 10^3/uL (0.2-0.9); Monocytes % 6.1 %; Neutrophils # 4.52 10^3/uL (1.8-7.7); Neutrophils % 88.2 %; Nucleated Red Blood Cells % 0 %; Platelet Count 159 10^3/cmm (157-399); Red Blood Count 3.99 10^6/uL (3.85-5.65); Red Cell Distribution Width 19.4 % (12.1-15.1); White Blood Count 5.12 10^3/uL (3.29-11.43)
[2024-05-07] MEDS: budesonide 0.5 mg/2 mL Neb INHALATION (20:33)
[2024-05-08] VITALS (11 sets, daily range): BP systolic 129–139; BP diastolic 73–81; PULSE 80–95; RESP 16–28; TEMP 36.4–36.9; O2SAT 89–98
[2024-05-08] MEDS: levalbuterol 0.63 mg/3 mL Neb INHALATION ×4 (02:52→19:30)
[2024-05-08] MEDS: ipratropium 0.5 mg/2.5 mL Neb INHALATION ×4 (02:52→19:30)
[2024-05-08 06:09] LABS: Basophils % 0.2 %; Lymphocytes # 0.5 10^3/uL (0.8-4.8); Lymphocytes % 9.7 %; Mean Corpuscular HGB Conc 28.5 g/dL (30-55); Mean Corpuscular Hemoglobin 21.5 pg (27-33); Mean Corpuscular Volume 75.5 fl (85-98); Monocytes # 0.4 10^3/uL (0.2-0.9); Monocytes % 8.7 %; Nucleated Red Blood Cells % 0 %; Platelet Count 125 10^3/cmm (157-399); Red Blood Count 4.37 10^6/uL (3.85-5.65); White Blood Count 5.06 10^3/uL (3.29-11.43)
[2024-05-08 06:23] LABS: Alanine Aminotransferase 8 U/L (0-33); Albumin Level 3.4 g/dL (3.5-5.2); Alkaline Phosphatase 76 U/L (35-105); Anion Gap 14.9 (5-19); Aspartate Amino Transferase 22 U/L (0-32); Blood Urea Nitrogen 18 mg/dL (8-23); Calcium 8.4 mg/dL (8.5-10.5); Carbon Dioxide 21 mmol/L (22-29); Chloride 108 mmol/L (98-107); Creatinine Clr Calc Pharmacy 41.1112; Globulin 2.9 g/dL (1.3-4.6); Glucose 83 mg/dL (65-115); Magnesium 1.9 mg/dL (1.7-2.3); Osmolality Calculated 291 mOsm/kg (285-295); Potassium 3.9 mmol/L (3.5-5.1); Sodium 140 mmol/L (136-145); Total Bilirubin 1.3 mg/dL (0.15-1.2); Total Protein 6.3 g/dL (6.6-8.7)
[2024-05-08 07:05] LABS: Folate Level 7.6 ng/mL (4.8-37.3)
[2024-05-08] MEDS: budesonide 0.5 mg/2 mL Neb INHALATION ×2 (07:30→19:30)
--- NOTE | 2024-05-08 09:41 | PC.CHAP ---
Pastoral Care Encounter/Spiritual Assessment Type of Contact [] Declined tour bus driver visit [] Patient/Family/Request visit [] Outpatient visit [] Follow-up visit [] Physician referral [] Code/Alert [x] Routine visit [] Staff referral [] Actively dying [] Patient sleeping [] Family support [] [] Out of room [] Palliative care [] [] Receiving care in room [] Pre-surgical visit [] Trauma [] Long length of stay [] ICU visit [] Other: Relational/Emotional Strength [] Patient feels connected with others/family/visitors/staff [] Distress [] Loneliness/isolation [] Abandonment Spirituality of Patient [] Person of Merary [] Attends Moravian of their Merary [] Believes in Prayer [] Reads Bible or Synagogue materials [] There are Spiritual issues to be addressed Planer Chain Offbearer Interventions [] Prayer [] Active listening [] Non-anxious presence [] Spiritual/emotional support [] Crisis/trauma care [] Spiritual counseling [] Bereavement support [] Provided bereavement packet [] Provided Bible/devotional materials [] Provided toy/stuffed animal, coloring book to patient or family member [] Provided Communion [] Anointing/Pender [] Salvation [] Completed spiritual assessment [] Other: Impact on Illness or Injury [] Angry [] Fearful [] Anxious [] Often cries [] Exhaustion [] Unable to work [] Unable to attend presybeterian [] Unable to walk/stand [] Unable to read [] Unable to drive [] Unable to eat/drink [] Unable to sleep [] Unable to be with family [] Patient intubated [] Other: Summary precaution Time spent with patient
[2024-05-08] MEDS: azithromycin 250 mg Tablet 500 MG PO (10:13)
[2024-05-08] MEDS: oseltamivir phosphate 30 mg Capsule PO ×2 (10:13→18:15)
[2024-05-08] MEDS: pantoprazole 40 mg SDV IVP ×2 (10:13→21:57)
[2024-05-08] MEDS: cefTRIAXone 1,000 MG in sodium chloride 0.9% (plus) 50 ML 100 MG IV (10:14)
[2024-05-08] MEDS: dexamethasone 10 mg/mL INJ 6 MG PO (10:14)
--- NOTE | 2024-05-08 11:25 | P.PN_ITS ---
Subjective 2 Subjective: No acute vents overnight. Today morning patient seen on room air as she had removed her nasal cannula. Seen with sitter at bedside. Oxygen saturation found down to be in the low 80s. After being placed on 2 L improving to more than 90. Vitals/I&O/Wt Last Vital Signs Temp 97.7 F 05/08/24 07:57 Pulse 88 05/08/24 07:57 Resp 19 H 05/08/24 07:57 BP 129/81 05/08/24 07:57 Pulse Ox 94 05/08/24 07:57 O2 Del Method Nasal Cannula 05/08/24 07:57 O2 Flow Rate 2 05/08/24 07:32 FiO2 40 05/07/24 03:05 05/07/24 05/08/24 05/08/24 22:59 06:59 14:59 Intake Total 590 / 1480 30 / 1510 240 / 240 Balance 590 / 1480 30 / 1510 240 / 240 Weight last 48 hrs Weight 47.038 kg Weight 46.765 kg Weight 45.359 kg Weight 45.359 kg Physical Exam 2 Narrative: General: No acute distress,AO x 1 to 2, thin built HEENT: PERRLA, pupils bilaterally equal and reactive Chest: Bilateral bronchial breath sounds all lung singh occasional rhonchi diffuse all over lung singh CVS: S1-S2 regular, no murmurs, no tachycardia, no gallops, no rubs Abdomen: Soft, nontender, no organomegaly, bowel sounds present Neuro: No focal deficits, no facial deformity, AO x3, power 5/5 in all limbs Data 05/08/24 05:53 05/08/24 05:53 Micro: Microbiology 05/06/24 22:20 Blood Culture - Preliminary Blood NEGATIVE TO DATE 05/06/24 20:36 Blood Culture - Preliminary Blood NEGATIVE TO DATE A&P Assessment and plan (1) Acute hypoxemic respiratory failure: Most likely COPD exacerbation in setting of influenza and COVID-19. Supplementation keeping saturation over 88%. Aspiration precaution. (2) Influenza A: Supportive treatment. Start on Tamiflu 30 mg twice daily as per creatinine clearance. (3) COVID: Hypoxia secondary to COVID-19 pneumonia: Mild to moderate disease. Oxygen supplementation keeping saturation over 88%. Dexamethasone 6 mg daily. Remdesivir to finish a 5-day course. DuoNeb every 6 hour, budesonide twice daily Pulmonary toilet with incentive spirometry flutter valve. We will monitor inflammatory markers including CRP every 48 hours. Check D-dimer. Unfortunately patient has significant anemia. Will hold off on starting anticoagulation. Check sputum culture, procalcitonin, blood culture. Procalcitonin negative. Low suspicion of bacterial infection for now. For now continue with IV ceftriaxone 1 g daily along with azithromycin for atypical coverage. Given hypoxia will try to keep patient as negative as possible. Lasix as per fluid status. Strict input output charting, daily weights. (4) Anemia: Significant anemia. Hemoglobin down to 6.4. Acute on chronic. Most recently 7.5 back in 05/06/2024. Patient seems asymptomatic. Check iron panel, vitamin B12 and folate levels. 1 unit of PRBC transfusion. Check stool for occult blood. Start on IV iron supplementation if iron deficiency. Start on Protonix IV twice daily (5) Adult failure to thrive: (6) COPD (chronic obstructive pulmonary disease): Plan CODE STATUS: Reviewed paperwork. DNR/DNI. Dysphagia level 4 diet. Speech evaluation and advance accordingly. Protonix will be sufficient for PUD prophylaxis SCD for DVT prophylaxis. Hold off on medical prophylaxis given significant anemia. Plan for the day: Hemoglobin improved appropriately after monitor blood transfusion. Continue to monitor daily. Stool for occult blood awaited. Continue IV iron supplementation. Continue with Protonix twice daily. Continue with IV remdesivir and oral dexamethasone for COVID-19. Patient still requiring oxygen. Oxygen supplementation keeping saturation over 88%. Wean accordingly. Continue with IV ceftriaxone and oral azithromycin. Concern for aspiration. Speech evaluation. Continue with Tamiflu 30 mg twice daily. PDMP PDMP Reviewed: Not Reviewed Attestations 2 Medical Necessity Statement*: Requires further hospitalization for management of acute hypoxia in setting of COVID-19 and influenza A, acute anemia requiring blood transfusion Diagnoses Acute hypoxemic respiratory failure J96.01 Influenza A J10.1 COVID U07.1 Anemia D64.9 Adult failure to thrive R62.7 COPD (chronic obstructive pulmonary disease) J44.9
[2024-05-08] MEDS: iron sucrose 200 MG in sodium chloride 0.9% (100 ml) 100 ML 220 MG IV (12:17)
--- NOTE | 2024-05-08 15:50 | PC.SOCIAL ---
IMM updated IMM dated and initialed, copy given to patient and copy placed in chart.
[2024-05-08] MEDS: remdesivir 100 MG in sodium chloride 0.9% (100 ml) 80 ML IV (18:15)
[2024-05-09] VITALS (8 sets, daily range): BP systolic 99–170; BP diastolic 64–81; PULSE 71–91; RESP 15–20; TEMP 36.3–36.6; O2SAT 90–93
[2024-05-09] MEDS: ipratropium 0.5 mg/2.5 mL Neb INHALATION ×2 (03:06→08:47)
[2024-05-09] MEDS: levalbuterol 0.63 mg/3 mL Neb INHALATION ×2 (03:06→08:47)
[2024-05-09] MEDS: budesonide 0.5 mg/2 mL Neb INHALATION (08:47)
[2024-05-09] MEDS: azithromycin 250 mg Tablet 500 MG PO (09:26)
[2024-05-09] MEDS: dexamethasone 10 mg/mL INJ 6 MG PO (09:26)
[2024-05-09] MEDS: pantoprazole 40 mg SDV IVP (09:26)
[2024-05-09] MEDS: cefTRIAXone 1,000 MG in sodium chloride 0.9% (plus) 50 ML 100 MG IV (09:26)
[2024-05-09] MEDS: oseltamivir phosphate 30 mg Capsule PO (09:27)
[2024-05-09 11:16] LABS: Basophils % 0.3 %; Eosinophils % 0.7 %; Hematocrit 32.4 % (36-47); Lymphocytes # 0.5 10^3/uL (0.8-4.8); Lymphocytes % 17.7 %; Mean Corpuscular HGB Conc 28.1 g/dL (30-55); Mean Corpuscular Hemoglobin 20.9 pg (27-33); Mean Corpuscular Volume 74.3 fl (85-98); Mean Platelet Volume 11.1 fL (7.4-10.4); Monocytes # 0.4 10^3/uL (0.2-0.9); Neutrophils # 1.96 10^3/uL (1.8-7.7); Nucleated Red Blood Cells % 0 %; Platelet Count 157 10^3/cmm (157-399); Red Blood Count 4.36 10^6/uL (3.85-5.65); Red Cell Distribution Width 20.2 % (12.1-15.1); White Blood Count 2.93 10^3/uL (3.29-11.43)
--- NOTE | 2024-05-09 11:20 | PC.NURSE ---
Attempted to call report to [facility], unable
[2024-05-09 11:29] LABS: Alanine Aminotransferase 8 U/L (0-33); Alkaline Phosphatase 64 U/L (35-105); Anion Gap 12.3 (5-19); Aspartate Amino Transferase 23 U/L (0-32); Blood Urea Nitrogen 11 mg/dL (8-23); Calcium 8.1 mg/dL (8.5-10.5); Carbon Dioxide 24 mmol/L (22-29); Chloride 106 mmol/L (98-107); Globulin 2.5 g/dL (1.3-4.6); Glucose 92 mg/dL (65-115); Osmolality Calculated 287 mOsm/kg (285-295); Potassium 3.3 mmol/L (3.5-5.1); Sodium 139 mmol/L (136-145); Total Bilirubin 0.4 mg/dL (0.15-1.2); Total Protein 5.5 g/dL (6.6-8.7)
--- NOTE | 2024-05-09 11:56 | PC.NURSE ---
2nd attempt to call report, left on hold
--- NOTE | 2024-05-23 14:45 | PM.DCS ---
Discharge Providers Date of Admission: 05/06/24 22:29 Date of Discharge: May 23, 2024 Attending Provider at Admission: Aramis Shea MD Attending Provider at Discharge: Logan Naqvi MD Primary Care Provider: Jenni Camarillo Diagnoses at Discharge Discharge Diagnosis (1) Acute hypoxemic respiratory failure: Status: Acute (2) Influenza A: Status: Acute (3) COVID: Status: Acute (4) Anemia: Status: Acute (5) Adult failure to thrive: Status: Acute (6) COPD (chronic obstructive pulmonary disease): Status: Acute Reason for Visit Reason for Visit: resp distress Hospital Course Hospital Course Dilcia Zimmerman is an 83-year-old female with a past medical history significant for COPD who presented with shortness of breath, found to have acute hypoxic respiratory failure secondary to acute COPD exacerbation secondary to acute influenza A as well as COVID-19 infection. She was treated with broad-spectrum antibiotics, remdesivir, breathing treatments and supportive care. She is evaluated by speech therapy placed on dysphagia diet. Overall, her symptomatology improved. She was weaned to 2 L nasal cannula to keep SpO2 above 88%. She is discharging back to nursing facility in stable condition to complete her recovery. Physical Exam Narrative: General: Patient is awake. Frail-appearing. No acute distress. Head: Normocephalic. Atraumatic. Neck: No JVD. Cardiovascular: RRR. No gallops. No murmurs. Lungs: Breath sounds are slightly diminished, no use of accessory muscles, no crackles or wheezes. On 2 L nasal cannula. Skin: No jaundice. No rashes. Abdomen: Normal bowel sounds, abdomen soft and nontender. Extremities: No cyanosis or clubbing. Musculoskeletal: No swollen or erythematous joints. Neurological: Moves all 4 extremities. No myoclonus. Discharge Data Studies Completed and Pending Completed Studies During Hospitalization Category Date Time Status XR chest 1V portable [id number] Stat Exams 05/06/24 20:26 Completed Radiology Impressions Chest X-Ray 05/06/24 20: IMPRESSION: 1. Unremarkable lungs. 2. Partially visualized gas-filled distended loops of bowel in the upper abdomen. Laboratory Results WBC 2.93 10^3/uL (3.29-11.43) L 05/09/24 11:01 RBC 4.36 10^6/uL (3.85-5.65) 05/09/24 11:01 Hgb 9.10 g/dL (11.27-16.99) L 05/09/24 11:01 Hct 32.4 % (36-47) L 05/09/24 11:01 MCV 74.3 fl (85-98) L 05/09/24 11:01 MCH 20.9 pg (27-33) L 05/09/24 11:01 MCHC 28.1 g/dL (30-55) L 05/09/24 11:01 RDW 20.2 % (12.1-15.1) H 05/09/24 11:01 Plt Count 157 10^3/cmm (157-399) 05/09/24 11:01 MPV 11.1 fL (7.4-10.4) H 05/09/24 11:01 Neut % (Auto) 67.0 % 05/09/24 11:01 Lymph % (Auto) 17.7 % 05/09/24 11:01 [place] % (Auto) 14.0 % 05/09/24 11:01 Eos % (Auto) 0.7 % 05/09/24 11:01 Baso % (Auto) 0.3 % 05/09/24 11:01 Neut # (Auto) 1.96 10^3/uL (1.8-7.7) 05/09/24 11:01 Lymph # (Auto) 0.5 10^3/uL (0.8-4.8) L 05/09/24 11:01 [place] # (Auto) 0.4 10^3/uL (0.2-0.9) 05/09/24 11:01 Eos # (Auto) 0.0 10^3/uL (0.0-0.8) 05/09/24 11:01 Baso # (Auto) 0.0 10^3/uL (0.0-0.1) 05/09/24 11:01 Nucleated RBC % (auto) 0 % 05/09/24 11:01 Nucleated RBCs # 0.0 /100WBC 05/09/24 11:01 D-Dimer 3.10 ug/mLFEU (0-0.59) H 05/07/24 10:34 Specimen Type Arterial 05/06/24 22:04 Sample Site Brachial, right 05/06/24 22:04 ABG pH 7.38 (7.35-7.45) 05/06/24 22:04 ABG pCO2 36.0 mmHg (35-45) 05/06/24 22:04 ABG pO2 80.5 mmHg (80.0-100.0) 05/06/24 22:04 ABG PO2/FiO2 Ratio 201 05/06/24 22:04 ABG HCO3 21.1 mmol/L (22-26) L 05/06/24 22:04 ABG Base Excess -3.7 mmol/L (-2.0-2.0) L 05/06/24 22:04 Edgar Test N/a 05/06/24 22:04 Hematocrit 21.6 % (37-47) L 05/06/24 22:04 Hgb O2 Saturation 93.7 % (95-100) L 05/06/24 22:04 Carboxyhemoglobin 1.1 %THgb (0.4-20.1) 05/06/24 22:04 Methemoglobin 0.5 % (0.4-1.5) 05/06/24 22:04 Total Hemoglobin 7.0 g/dL (12-16) L 05/06/24 22:04 O2 Delivery Device Bipap 05/06/24 22:04 FiO2 40.0 % 05/06/24 22:04 Enrolled Agent ID Jean [place] 05/06/24 22:04 Sodium 139 mmol/L (136-145) 05/09/24 11:01 Potassium 3.3 mmol/L (3.5-5.1) L 05/09/24 11:01 Chloride 106 mmol/L (98-107) 05/09/24 11:01 Carbon Dioxide 24 mmol/L (22-29) 05/09/24 11:01 Anion Gap 12.3 (5-19) 05/09/24 11:01 BUN 11 mg/dL (8-23) 05/09/24 11:01 Creatinine 0.6 mg/dL (0.5-0.9) 05/09/24 11:01 GFR Calculation Not Reportable 05/09/24 11:01 Glucose 92 mg/dL (65-115) 05/09/24 11:01 Estimat Average Glucose 108 05/07/24 08:01 Hemoglobin A1c 5.4 % (4.0-6.0) 05/07/24 08:01 Calculated Osmolality 287 mOsm/kg (285-295) 05/09/24 11:01 Lactic Acid 5.1 mmol/L (0.5-2.2) H* 05/06/24 20:36 Lactic Acid (Sepsis) 2.6 mmol/L (0.5-2.2) H 05/06/24 22:20 Calcium 8.1 mg/dL (8.5-10.5) L 05/09/24 11:01 Magnesium 2.0 mg/dL (1.7-2.3) 05/09/24 11:01 Iron 9 ug/dL (37-145) L 05/07/24 08:01 TIBC 356 mcg/dl 05/07/24 08:01 % Saturation 2.5 % (20-50) L 05/07/24 08:01 Unsat Iron Binding 347 ug/dL (112-347) 05/07/24 08:01 Total Bilirubin 0.4 mg/dL (0.15-1.2) 05/09/24 11:01 AST 23 U/L (0-32) 05/09/24 11:01 ALT 8 U/L (0-33) 05/09/24 11:01 Alkaline Phosphatase 64 U/L (35-105) 05/09/24 11:01 Troponin T Baseline 36 ng/L (0-10) H 05/06/24 20:36 Troponin T 120 Minute 40.30 ng/L (0-10) H 05/06/24 22:20 Delta Troponin T 4.30 ABS# (0-10) 05/06/24 22:20 Troponin T Hi Sens 6Hr 43.94 ng/L (0-10) H 05/07/24 02:09 Troponin T Hi Sens 6Hr Delta 7.94 ng/L (0-12) 05/07/24 02:09 C-Reactive Protein 22.7 mg/L (0.0-4.9) H 05/07/24 02:09 NT-Pro-B Natriuret Pep 1596 pg/mL (0-450) H 05/06/24 20:36 Total Protein 5.5 g/dL (6.6-8.7) L 05/09/24 11:01 Albumin 3.0 g/dL (3.5-5.2) L 05/09/24 11:01 Globulin 2.5 g/dL (1.3-4.6) 05/09/24 11:01 Vitamin B12 990 pg/mL (232-1245) 05/07/24 08:01 Folate 7.6 ng/mL (4.8-37.3) 05/08/24 05:53 Procalcitonin 0.31 ng/mL (0-0.5) 05/07/24 08:01 TSH 1.17 uIU/mL (0.27-4.20) 05/07/24 08:01 Influenza A (PCR) Positive (Negative) 05/06/24 20:03 Influenza Type B (PCR) Negative (Negative) 05/06/24 20:03 RSV (PCR) Negative (Negative) 05/06/24 20:03 SARS-CoV-2 (PCR) Positive (Negative) A 05/06/24 20:03 Blood Type O Positive 05/07/24 08:01 Rho(D) Type Rh positive 05/07/24 08:01 Antibody Screen Negative 05/07/24 08:01 Crossmatch See Detail 05/07/24 08:01 Vitals Last Vital Signs Temp 97.8 F 05/09/24 12:31 Pulse 73 05/09/24 12:31 Resp 16 05/09/24 12:31 BP 109/76 05/09/24 12:31 Pulse Ox 92 05/09/24 12:31 O2 Del Method Nasal Cannula 05/09/24 12:19 O2 Flow Rate 2 05/09/24 12:19 FiO2 40 05/07/24 03:05 Discharge Plan Discharge Patient Disposition: Xfer SNF Condition: Serious Prescriptions: Continued cyanocobalamin (vitamin B-12) 1,000 mcg capsule 1,000 mcg PO DAILY Qty: 90 0RF albuterol sulfate 2.5 mg /3 mL (0.083 %) solution for nebulization 2.5 mg continuous nebulization BID polyethylene glycol 3350 [Miralax] 17 gram/dose Powder 17 g PO ONCE budesonide 1 mg/2 mL suspension for nebulization 1 mg inhalation BID menthol-zinc oxide [Calmoseptine] 0.44-20.6 % ointment 0.44 applic TOPICAL PRN PRN (Reason: constipation) Discharge Orders: Discharge Order (Routine); Ordered 05/09/24 Ordered By: Logan Naqvi Referrals: [facility] [Outside] Patient Instructions: Prednisone (By mouth), Influenza (GEN), COPD (Chronic Obstructive Pulmonary Disease) (GEN), COPD Stoplight, Opioid Safety Discharge Attestations Time Spent in Discharge Care*: greater than 30 min Quality Metrics Clinical Quality Measures [ No reported AMI, CVA or VTE this stay] Coding Level of Care Code Acute Code for g Fwd Diagnoses Acute hypoxemic respiratory failure J96.01 Influenza A J10.1 COVID U07.1 Anemia D64.9 Adult failure to thrive R62.7 COPD (chronic obstructive pulmonary disease) J44.9
== END 2024-05-09 13:25 | disposition intermediate care facility (04) | DRG 177 ==
LOC: ER 22:36 → MEDSURG 23:13
PROVIDERS: Student in an Organized Health Care Education/Training Program; Admitting Provider Internal Medicine; Emergency Provider Emergency Medicine; PCP Physician Assistant; Visit Provider Internal Medicine
DX: U07.1 COVID-19 (principal); G93.41 Metabolic encephalopathy; J10.00 Influenza due to other identified influenza virus with unspecified type of pneumonia; J96.01 Acute respiratory failure with hypoxia; Z68.1 Body mass index [BMI] 19.9 or less, adult; J44.1 Chronic obstructive pulmonary disease with (acute) exacerbation; F05 Delirium due to known physiological condition; E46 Unspecified protein-calorie malnutrition; D64.9 Anemia, unspecified; R62.7 Adult failure to thrive; F03.90 Unspecified dementia, unspecified severity, without behavioral disturbance, psychotic disturbance, mood disturbance, and anxiety; D69.6 Thrombocytopenia, unspecified; R19.00 Intra-abdominal and pelvic swelling, mass and lump, unspecified site; E86.0 Dehydration
CPT/HCPCS: 36415; 36430; 36600; 71045; 80048; 80053; 82607; 82746; 82805; 83036; 83540; 83550; 83605; 83735; 83880; 84145; 84443; 84484; 85025; 85378; 86140; 86850; 86900; 86920; 87040; 87637; 93005; 94640; 94664; 96365; 96367; 96372; 96375; 99291; J0248; J0696; J1100; J1630; J1644; J1756; J1885; J2470; J2543; J7030; J7614; J7626; J7644; P9040; Q0144